=== PATIENT | female | born 1950 | race Caucasian/White ===

== ENCOUNTER 2018-07-17 10:10 | Emergency (ER) | payer BC, MEDICARE ==
--- NOTE | 2018-07-17 10:37 | ED ---
Complex/Multi-Sys Presentation - HPI Summary HPI Summary: This patient is a 67 year old F presenting to ED with a chief complaint of rushes of adrenaline since last night. She has been having episodes like these for years. Sometimes she gets them 4-5 times a night, each lasting about a minute or less and sometimes she doesnt get them at all during the night. She reports increased heart rate when this happens. She says that after the episode passes, there is a residual feeling of adrenaline left over. The patient rates the pain 0/10 in severity. Symptoms aggravated by nothing. Symptoms alleviated by nothing. Patient reports SI, anxiety, and depression (secondary to rushes), palpitations, and dizziness. Patient denies weakness of UE and LE. She was seen before and was given Gabapentin but that gave her a bad reaction. She was also treated for Lyme Disease which helped a lot but has stopped that treatment 2 years ago. She also had a CT Brain done about 5 years ago. She has also been seeing a psychiatrist for over 10 years. - History Of Current Complaint Chief Complaint: EDPsychosocial Time Seen by Provider: 07/17/18 10:21 Hx Obtained From: Patient Onset/Duration: Sudden Onset, Lasting Minutes, Resolved Timing: Constant Severity Currently: None Aggravating Factor(s): nothing Alleviating Factor(s): nothing Associated Signs And Symptoms: Positive: Dizziness, Palpitations. Negative: Weakness - Allergies/Home Medications Allergies/Adverse Reactions: Allergies Allergy/AdvReac Type Severity Reaction Status Date / Time lisinopril Allergy Anxiety Verified 07/17/18 10:50 moxifloxacin Allergy Unknown Verified 07/17/18 10:50 Reaction Details omega-3 acid ethyl esters Allergy Unknown Verified 07/17/18 10:50 [From Judi] Reaction Details PMH/Surg Hx/FS Hx/Imm Hx Endocrine/Hematology History: Reports: Hx Anticoagulant Therapy - ASA Denies: Hx Diabetes Cardiovascular History: Reports: Hx Hypertension Denies: Hx Pacemaker/ICD Respiratory History: Reports: Hx Sleep Apnea GI History: Reports: Hx Gastroesophageal Reflux Disease Sensory History: Denies: Hx Hearing Aid Neurological History: Reports: Other Neuro Impairments/Disorders - Balance Issues Psychiatric History: Reports: Hx Anxiety, Hx Depression Denies: Hx Panic Disorder - Surgical History Surgery Procedure, Year, and Place: LEFT THUMB. RT HIP REPLACEMENT. APPENDIX. 2 C-SECTIONS. HYSTERECTOMY Infectious Disease History: No Infectious Disease History: Denies: Traveled Outside the [place] in Last 30 Days - Family History Known Family History: Positive: Other Family History: breast CA - Social History Alcohol Use: None Substance Use Type: Reports: None Smoking Status (MU): Never Smoked Tobacco Review of Systems Positive: Other - "rushes of adrenaline Positive: Palpitations Neurological: Other - dizziness Negative: Weakness Positive: Anxious, Depressed, Other - SI All Other Systems Reviewed And Are Negative: Yes Physical Exam - Summary Physical Exam Summary: Appearance: Well appearing, no pain distress Skin: warm, dry, reflects adequate perfusion Head/face: normal Eyes: EOMI, NANCY ENT: normal Neck: supple, non-tender Respiratory: CTA, breath sounds present Cardiovascular: RRR, pulses symmetrical Abdomen: non-tender, soft Musculoskeletal: normal, strength/ROM intact Neuro: normal, sensory motor intact, A&Ox3 GCS: 15 Triage Information Reviewed: Yes Vital Signs On Initial Exam: Initial Vitals Temp Pulse Resp BP Pulse Ox 99.2 F 133 22 185/121 98 07/17/18 10:14 07/17/18 10:14 07/17/18 10:14 07/17/18 10:14 07/17/18 10:14 Vital Signs Reviewed: Yes Diagnostics - Vital Signs Vital Signs Temp Pulse Resp BP Pulse Ox 07/17/18 10:14 99.2 F 133 22 185/121 98 - Laboratory Result Diagrams: 07/17/18 10:50 07/17/18 10:50 Lab Statement: Any lab studies that have been ordered have been reviewed, and results considered in the medical decision making process. - Radiology CXR Radiology Interpretation Completed By: Radiologist Summary of Radiographic Findings: NO EVIDENCE FOR ACTIVE CARDIOPULMONARY DISEASE. ED physician has reviewed this radiology report. - CT Brain CT CT Interpretation Completed By: Radiologist Summary of CT Findings: There is no evidence of intracranial mass or hemorrhage. ED physician has reviewed this radiology report. - EKG 1340 Cardiac Rate: Bradycardia - 57 BPM EKG Rhythm: Sinus Bradycardia Summary of EKG Findings: QS in the inferior leads Re-Evaluation - Re-Evaluation First Eval Re-Evaluation Time: 12:33 Comment: The patient is doing fine. Told the patient that the psych information technology coordinator will see her soon. Complex Multi-Symp Course/Dx Assessment/Plan: This patient is a 67 year old F presenting to ED with a chief complaint of rushes of adrenaline since last night. Blood work/UA obtained. Per the nurse, the patient reports these sx started around the time she started menopause. Brain CT reveals there is no evidence of intracranial mass or hemorrhage. CXR reveals NO EVIDENCE FOR ACTIVE CARDIOPULMONARY DISEASE. The patient was cleared for MHE at 1200. EKG was done at 1340 and reveals sinus marysol at 57 BPM and QS in the inferior leads. This patient was evaluated by Dr. Cesar and the patient will be discharged with instructions to follow up with her PCP for her adrenal issues and rx for anxiety. The patient understands and agrees with this plan. - Diagnoses Differential Diagnoses/HQI/PQRI: Other - anxiety/depression Provider Diagnoses: Anxiety Discharge - Sign-Out/Discharge Documenting (check all that apply): Patient Departure - discharge Patient Received Moderate/Deep Sedation with Procedure: No - Discharge Plan Condition: Stable Disposition: HOME Prescriptions: hydrOXYzine pamoate [Vistaril] 25 mg PO TID #15 cap Patient Education Materials: Depression (ED), Anxiety (ED) Referrals: Doug Taylor MD [Primary Care Provider] - (Follow up for adrenal insufficiency testing as soon as possible) Additional Instructions: RETURN TO THE EMERGENCY DEPARTMENT FOR CHANGING OR WORSENING SYMPTOMS. - Billing Disposition and Condition Condition: STABLE Disposition: Home - Attestation Statements Document Initiated by Alex: Yes Documenting Scribe: Sravan Pollard Provider For Whom Alex is Documenting (Include Credential): Abel Zeng MD Scribe Attestation: Sravan Livingston, scribed for Abel Zeng MD on 07/17/18 at 1431. Scribe Documentation Reviewed: Yes Provider Attestation: The documentation as recorded by the Sravan michael accurately reflects the service I personally performed and the decisions made by , Abel Zeng MD Status of Scribe Document: Viewed
[2018-07-17 10:57] LABS: ABS Basophils 0 10^3/ul (0-0.2); ABS Eosinophils 0 10^3/ul (0-0.6); ABS Lymphocytes 1.3 10^3/ul (1.0-4.8); ABS Monocytes 0.4 10^3/ul (0-0.8); ABS Neutrophils 2.6 10^3/ul (1.5-7.7); ABS Nucleated RBC 0 10^3/ul; Hematocrit 40 % (35-47); Hemoglobin 13.7 g/dl (12.0-16.0); Lymphocyte % 29.1 %; Mean Corpuscular HGB Conc 34 g/dl (31-36); Mean Corpuscular Hemoglobin 30 pg (27-31); Mean Corpuscular Volume 87 fL (80-97); Mean Platelet Volume 7.6 fL (7.4-10.4); Nucleated Red Blood Cells % 0.1; Platelet Count 200 10^3/ul (150-450); Red Blood Count 4.65 10^6/ul (4.00-5.40); Red Cell Distribution Width 15 % (10.5-15); White Blood Count 4.4 10^3/ul (3.5-10.8)
[2018-07-17 11:19] LABS: ALT 17 U/L (7-52); AST 20 U/L (13-39); Albumin 4.6 g/dL (3.2-5.2); Albumin/Globulin Ratio 1.5 (1-3); Alkaline Phosphatase 84 U/L (34-104); Anion Gap 9 mmol/L (2-11); BUN/Creatinine Ratio 28.6 (8-20); Blood Urea Nitrogen 22 mg/dL (6-24); CO2 Carbon Dioxide 25 mmol/L (22-32); Calcium 9.6 mg/dL (8.6-10.3); Chloride 106 mmol/L (101-111); Creatine Kinase 46 U/L (10-223); EGFR African American 90.2 (>60); EGFR Non-African American 74.5 (>60); Glucose 111 mg/dL (70-100); Sodium 140 mmol/L (135-145); Total Protein 7.6 g/dL (6.4-8.9)
--- OUTSIDE RECORDS SUMMARY | 2018-07-17 11:25 | XMS REPORT | Continuity of Care Document ---
:1950 External Reference #:[id number] Author Name Keyonna Collins Care Team Providers Name Role Phone Marii Pagan MD Primary Care Physician Unavailable Payers Date Identification Numbers Payment Provider Subscriber Effective: 2016 Policy Number: [id number] BS [employer]ets Scooter Quintanilla PayID: [id number] [address] [address] [place] [address] Policy Number: [id number] Medicare Estevan Miller PayID: [id number] [address] [place] [address] Effective: 2013 Policy Number: [id number] [employer] Scooter Quintanilla Expires: 2016 PayID: [id number] [address] [address] [place] [address] Effective: 2012 Policy Number: [id number] BS Facets Estevan Miller Expires: 2013 PayID: [id number] [facility] [address] [place] [address] Effective: 2013 Policy Number: [id number] Medicare Estevan Miller Expires: 2018 PayID: [id number] [address] [facility] [place] [address] Advance Directives Description No Information Available Problems Date Description Provider Status Onset: 03/19/2018 Familial hypercholesterolemia Eliseo Anthony M.D.,FACP Onset: 06/12/2007 Obstructive sleep apnea syndrome Eliseo Anthony M.D.,FACP Onset: 04/27/2015 Essential hypertension Eliseo Schuler M.D. Onset: 09/29/2013 Hyperlipidemia Sweta GilEliseo Marks M.D. Onset: 11/01/2011 Impaired fasting glycaemia Eliseo Anthony M.D.,FACP Onset: 10/02/2011 Coronary arteriosclerosis Eliseo Anthony M.D.,FACP Onset: 02/19/2012 Chronic pain syndrome Valeriano Valdes M.D. Active Onset: 02/19/2012 Degenerative joint disease of pelvis Valeriano Valdes M.D. Active Onset: 03/27/2011 Localized, primary osteoarthritis of Doug Taylor Active the pelvic region and thigh Ada.Delma,FACP Onset: 07/21/2011 Anxiety state Vikki Chin N.P. Active Onset: 05/19/2011 Electrocardiogram abnormal Eliseo Anthony M.D.,FACP Onset: 02/19/2012 Immunological Findings Nonspecified Valeriano Valdes M.D. Active Other & Unspecified Onset: 06/12/2007 Dizziness and giddiness Eliseo Anthony M.D.,FACP Onset: 05/06/2015 Prosthetic arthroplasty of the hip Tristan Best M.D. Active Onset: 06/13/2016 Tachycardia Kaitlyn Zamora DNP, Active RN, CHILD HEALTH ASSOCIATE- Note: nocturnal per report Onset: 02/07/2017 Low back pain Tristan Best M.D. Active Onset: 02/07/2017 Neck pain Tristan Best M.D. Active Onset: 09/16/2007 Arteritis Doug Taylor M.D.,FACP Inactive Inactive: 09/05/2012 Onset: 03/27/2011 Pure hypercholesterolemia Doug Taylor M.D.,FACP Inactive Inactive: 09/05/2012 Onset: 07/21/2011 Palpitations Vikki Chin N.P. Resolved Resolved: 09/05/2012 Family History Date Family Member(s) Observation Comments General Diabetes General Heart Disease General Cancer Father SD at 55, was a smoker Father due to Emphysema () Mother due to Alzheimer's () Disease Mother Hypercholesterolemia severe Mother Arthritis First Son Hypercholesterolemia Second Son Hypercholesterolemia Third Son Hypercholesterolemia Fourth Son Hypercholesterolemia Siblings 2 Paternal Grandfather Arthritis severe, early : (age Paternal Grandfather due to SD 63 Years) : (age Paternal Grandmother due to SD 64 Years) Maternal Grandmother due to Cancer () - stomach Social History Type Date Description Comments Sex Unknown Marital Status Lives With Spouse 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 [employer] Tobacco Use Start: Unknown Never Smoked Cigarettes ETOH Use 03/22/2018 Denies alcohol use Recreational Drug Use Denies Drug Use Tobacco Use Start: Unknown Patient has never smoked Smoking Status Reviewed: 06/28/18 Patient has never smoked Exercise Type/Frequency Exercises rarely Allergies, Adverse Reactions, Alerts Date Description Reaction Status Severity Comments 09/15/2008 Lovaza Urticaria Active 2010 Avelox Urticaria Active Severe 10/02/2011 Lisinopril Active anxiety 04/27/2015 Latex Active itchiness 06/06/2016 Rocephin itchy, tingling Active Mild overall 06/25/2018 Sulfa Antibiotics Active chills, fever, diarrhea 06/12/2007 NKDA Inactive Medications Medication Date Status Form Strength Qnty SIG Indications Ordering Provider Macrobid Active Capsules 100mg 14caps 1 by Lizet 019 mouth Varn, N.P. twice a day for 7 days Rosuvastatin Active Tablets 40mg 30tabs take one E78.4 Ulises Verma tablet Delma Taylor, by mouth BetoDLilo,FACP every day Praluent Active Solution 75mg/ml 2units sc E78.2 Doug Pichardo Pen-Inject [id number] DLilo Taylor, (not M.D.,FACP taking) I25.10 Losartan 03/19/2018 Active Tablets 50mg 90tabs 1 by mouth I10 Ulises Nguyễn Potassium every day [place], Started on M.D.,FACP 03/20/18 Tylenol 12/31/2017 Active Tablets 325mg 90tabs take 2 tabs Doug Nguyễn as needed Claudia, every 6 M.D.,FACP hours for pain/fever Amoxicillin 09/26/2016 Active Capsules 500mg 8caps 4 tabs 1 Tristan hour before Nasir, dental work M.DLilo Aspirin 09/05/[address] 81mg 30tabs 1 by mouth I25.10 Florian Nguyễn every day Monika Taylor,FACP E78.4 Kril Oil Active 240mg po daily Unknown Vitamin D Active Liquid 4000Iu qd po Unknown Multi Vitamin Daily Active 1 tablet Unknown daily Magnesium Active 165mg 4tabs daily Unknown Curcumax Pro Active Tablets 1 po qd Unknown (tumeric) Resveratrol Active Capsules 100mg 2 daily Unknown Acetyl L-Carnitine Active Capsules 1000mg 1 po daily Unknown Co Q 10 Active Capsules 100mg 2 po qd Unknown Macrodantin 06/25/2018 - Hx Capsules 100mg 14 one by Lizet 06/25/2018 ca mouth twice Varn, N.P. ps a day x 7 days Bactrim DS 06/24/2018 - Hx Tablets 800-160 14 one by Kevin Hinds 06/25/2018 mg ta mouth twice 9. Varn, N.P. bs a day for 7 0 days Cyclobenzaprine HCL 04/04/2017 - Hx Tablets 5mg 10 one to two M5 [place] 03/21/2018 ta tabs by 4az Santos mouth twice 5 M.D. a day as needed for spasms Neurontin 02/12/2017 - Hx Capsules 300mg 30 1 by mouth [place] 03/21/2018 ca every night judit Best at bedtime M.D. (pt has not taken, prn) VSL#3 05/05/2015 - Hx Capsules 450Bill 2 caps bid Other 07/18/2017 iion Ordering Per Day Provider Coq-10 05/03/2014 - Hx Capsules 100mg 1 tabs Other 01/04/2016 twice a day Ordering Provider Losartan Potassium 03/03/2014 - Hx Tablets 25mg 90 Take One I1 [place] 03/19/2018 ta Tablet By 0 az Lyon Mouth Once M.D. Daily Doxycycline Hyclate 02/19/2014 - Hx Capsules 100mg 60 twice a day 08 Doug 03/17/2014 ca by mouth 8. DLilo Taylor ps 81 M.D.,FACP Lidoderm 07/03/2013 - Hx Patches 5% 30 apply 72 Doug 01/29/2014 un topically 4. DLilo Taylor it qd for 12 1 M.D.,FACP s hrs Gabapentin 02/15/2012 - Hx Capsules 100mg 60 1 po tid 78 [facility] 09/05/2012 ca 0. D. Claudia, ps 4 M.D.,FACP Omeprazole 11/01/2011 - Hx Capsules DR 20mg 60 1 cap bid 53 Doug 09/29/2013 ca (before 0. D. Claudia, ps breakfast 11 M.D.,FACP and dinner) prn Welchol 11/01/2011 - Hx Tablets 625mg 18 3 po bid 41 [facility] 09/05/2012 0t 4. D. Claudia, ab 01 M.D.,FACP s Klonopin Wafers 11/01/2011 - Hx Tablets 0.25mg 12 1 po qid 78 [facility] 09/05/2012 Dispers 0t 0. D. Claudia, ab 4 M.D.,FACP s Hydrochlorothiazide 10/30/2011 - Hx Tablets 12.5mg 90 1 po every [facility] 11/01/2011 ta am Delma Taylor bs [facility] Losartan 10/02/2011 - Hx Tablets 50-12.5 45 take 05/22 41 [facility] Potassium/Hydrochlorot 09/29/2013 mg ta tablet 4. John. rony Taylorazide bs every 01 M.D.,[facility] morning Lisinopril 08/25/2011 - Hx Tablets 10mg 30 1 tab po qd 40 Doug 09/26/2011 ta at night 1. John. Claudia bs 1 M.D.,FAC Amoxicillin 08/15/2011 - Hx Capsules 500mg 8c 4 tabs 1 Tristan 05/05/2015 ap hour before gil Best dental work M.D. Transderm-Scop 07/25/2011 - Hx Patches 72HR 1.5mg 4u apply 1 78 [facility] 11/01/2011 ni patch q3 0. D. Claudia, ts days prn; 4 M.D.,FACP apply patch behind ear at least 4h before event; do not cut Omeprazole 07/21/2011 - Hx Capsules DR 20mg 60 1 cap bid 53 [facility] 11/01/2011 ca (before 0. D. Claudia, ps breakfast 11 M.D.,FACP and dinner) Align 07/21/2011 - Hx Capsules 4mg 30 1 po qd 78 [facility] 11/01/2011 ca Jaleel. D. Claudia ps 3 M.D.,FACP Bactrim DS 06/19/2011 - Hx Tablets 800-160 14 1 po bid [place] 07/21/2011 mg ta for 7 days az Best M.D. Percocet 05/19/2011 - Hx Tablets 5-325mg 60 1-2 po [place] 07/21/2011 ta q4-6h prn az Best pain BetoDLilo Coumadin 05/19/2011 - Hx Tablets 2.5mg 50 2 po use as [place] 07/21/2011 ta directed az Best M.D. Ultram 04/19/2011 - Hx Tablets 50mg 40 1-2 po bid [place] 04/21/2011 ta praz Stanton M.D. Garamycin 04/14/2011 - Hx Ointment 0.3% 1u 1/4 inch to 37 [place] 05/19/2011 ni each eye 4x 2. Darrel, ts per day 11 M.D. 7-10 days Arthrotec 50 03/27/2011 - Hx Tablets 50-200m 60 po bid 71 Doug 04/21/2011 g-mcg ta az Trent 15 M.DLilo,FACP Genteal PM 03/06/2011 - Hx Ointment 85-15% 37 [place] 03/27/2011 3. Mario 00 M.DLilo Garamycin 03/06/2011 - Hx Ointment 0.3% 1u 1/4 inch to 37 [place] 03/27/2011 ni each eye 4x 2. Mario, ts per day 11 M.D. 7-10 days Celebrex 02/03/2011 - Hx Capsules 200mg 60 1 po bid Valeriano 05/19/2011 ca Monika Valdes ps Prednisone 02/03/2011 - Hx Tablets 5mg 70 4 qd x 1 Valeriano 03/06/2011 ta week, 3 qd Monika Valdes bs x 1 week, 2 qd x 1 week, 1 qd x 1 week Zantac 01/17/2011 - Hx Tablets 150mg 90 po qd prn 53 Doug 03/27/2011 az Myers 00 M.DLilo,FACP Amoxicillin 12/16/2010 - Hx Tablets 500mg 40 2 tabs po 46 Doug 01/05/2011 ta bid for 10 6. D. Claudia bs days 0 M.D.,[facility] Verapamil HCL ER 11/09/2010 - Hx Tablets ER 240mg 90 Take 1 41 Ulises Triana 10/02/2011 ta Tablet By 4. D. Claudia bs Mouth Every 01 M.D.,[facility] Day Lorazepam 11/09/2010 - Hx Tablets 0.5mg 45 1 po tid 78 Doug 03/06/2011 ta prn 0. DLilo Taylor bs 4 M.D.,[facility] Sertraline HCL 11/09/2010 - Hx Tablets 25mg 30 1 po qam 30 Doug 12/16/2010 ta 0az Sal 00 M.D.,[facility] Nabumetone 10/13/2010 - Hx Tablets 750mg 60 1 po bid Valeriano 02/03/2011 bree Valdes M.D. bs Indomethacin 2010 - Hx Capsules 25mg 90 1 po tid [place] 10/13/2010 ca Monika Valdes ps Avelox 06/20/2010 - Hx Tablets 400mg 10 1 po qd 46 [place] 2010 ta 1. az Lyon 9 M.D. Celebrex 04/21/2010 - Hx Capsules 200mg 30 1 po qd 72 Doug 2010 ca Kristi Taylor ps 0 M.D.,[facility] Fish Oil 10/20/2009 - Hx Capsules 1000mg 1 po bid 27 Doug 04/21/2010 2. DLilo Taylor, 2 M.D.,[facility] Verapamil HCL CR 10/20/2009 - Hx Tablets ER 240mg 90 1 po qd 40 Ulises Triana 11/09/2010 ta 1. DLilo Taylor bs 1 M.D.,[facility] Crestor 10/20/2009 - Hx Tablets 40mg 90 take one E7 Doug 06/21/2018 ta tablet by 8. DLilo Taylor bs mouth every 4 M.D.,[facility] day Lipator 07/01/2009 - Hx 40mg 30 1 po q 27 Doug 10/20/2009 un evening 2. D. Claudia, it 2 M.D.,[facility] s Amoxicillin 02/16/2009 - Hx Tablets 500mg 40 2 tabs po 47 Doug 03/31/2009 ta bid for 10 3. az Finley days 9 M.D.,FACP Vitamin D 11/17/2008 - Hx Tablets 1000Uni 30 qd po Doug 01/29/2014 t az Justice M.D.,[facility] Niaspan 09/15/2008 - Hx Tablets ER 500mg 90 1 po qhs 27 Doug 07/01/2009 ta az Reza 7 M.D.,[facility] Lipitor 09/15/2008 - Hx Tablets 20mg 90 qpm po 27 Doug 02/16/2009 ta az Reza 7 M.D.,[facility] Provigil 12/25/2007 - Hx Tablets 100mg 7t 1 po qam 32 Doug 02/24/2008 ab 7. Delma Taylor, s 23 M.D.,FACP Verapamil HCL ER 09/16/2007 - Hx Caps ER 24HR 180mg 90 1 po qd 40 Ulises Triana 10/20/2009 ca Dmitriy Taylor, ps 1 M.[facility] Amitriptyline HCL 07/15/2007 - Hx Tablets 10mg 30 1 po qhs 78 Doug 09/16/2007 ta 0. az Finley 4 M.D.,[facility] Celexa 06/12/2007 - Hx Tablets 10mg 1/2 tab PO Doug 06/21/2007 qd Delma Taylor M.D.,[facility] Klonopin Wafers 06/12/2007 - Hx Tablets 0.25mg 12 1 qid 78 Doug 04/21/2010 Dispers 0t 0. Delma Taylor, 4 M.[facility] s Atacand - Hx Tablets 32mg 1 PO qd 40 Doug 09/16/2007 Dmitriy Taylor, 1 M.D.,FACP Celexa - Hx Tablets 10mg 45 One And Doug 06/12/2007 ta Half Tab PO John. Claudia bs qd M.D.,[facility] Prilosec - Hx Doug 07/01/2009 Delma Taylor M.D.,FACP Vitamin B12 - Hx 1 qd Unknown 05/03/2014 Coq-10 - Hx Capsules 100mg 1 po qd Unknown 05/04/2014 Nabumetone - Hx Tablets 750mg 1 po bid 72 Unknown 04/21/2010 0. 0 Iron - Hx Tablets 325(65F 1 po qd Unknown 10/02/2011 e) mg Maalox Multi Symptom - Hx Suspension 400-400 3 teaspoons Unknown Maximum Strength 11/01/2011 -40mg/5 daily prn ML Diazepam - Hx Tablets 5mg 20 1/2-1 tab [facility] 05/05/2015 ta po prn az Finley M.D.,FACP Amino Acid - Hx Daily Unknown 05/05/2015 Celebrex - Hx Capsules 200mg 60 take one [facility] 05/05/2015 ca capsule by Delma Taylor ps mouth twice M.DLilo,FACP a day as needed D-Ribose - Hx Powder qd prn Unknown 05/05/2015 L-Tryptophan - Hx Capsules 500mg Unknown 05/03/2014 Cortisol [employer] - Hx Tablets Unknown 01/29/2014 [place] 3 - Hx Capsules 1000mg 10 1 by mouth Unknown 05/03/2014 0c qd. ap s Alpha Lipoic Acid - Hx Capsules 200mg Unknown 01/29/2014 Celexa - Hx Unknown 01/29/2014 Prozac - Hx Capsules 2.5mg 1 by mouth Unknown 07/06/2014 every day Hydrocortisone - Hx 5.5 mg at 8 Unknown 01/04/2016 am and 2.5 mg at noon [place] 3 - Hx Capsules 1000mg 1 by mouth Unknown 05/05/2015 qd. Vitamin B Complex - Hx Tablets 1 by mouth Unknown 04/26/2015 every day L Carnitine - Hx 1 daily Unknown 05/05/2015 Liposomal Glutathione - Hx 1 daily Unknown 05/05/2015 Meritene - Hx Unknown 05/05/2015 Cefuroxime Axetil - Hx 500mg 1 tab twice Unknown 01/04/2016 a day Azithromycin - Hx 250mg 1 tablet Unknown 06/06/2016 daily Saccharomyces - Hx 1-2 tabs Unknown 07/18/2017 per day Vitamin C - Hx 1000 1 tab twice Unknown 03/21/2018 a day (pt is not taking at this time) Fish Oil - Hx Capsules 500mg 1 by mouth E7 Unknown 03/21/2018 every day 8. 4 Atovaquone - Hx Suspension 750mg/5 1 tsp twice Unknown 06/06/2016 ML daily Medications Administered in Office Medication Date Status Form Strength Qnty SIG Indications Ordering Provider Celestone 3 mg Administered Injection Jennifer and 3mg 014 PAULINE Oshea Immunizations CPT Code Status Date Vaccine Lot # [id number] Given 12/05/2012 Tdap - Tetanus/Diptheria/Acellular Pertussis [id number] Given 02/15/2012 Fluzone Vaccine [id number] Given 03/27/2011 Zoster (Zostavax) [id number] 11625 Given 03/27/2011 Influenza Virus 3Yrs & Over [id number] 81660 Given 04/21/2010 Influenza Virus 3Yrs & Over [id number] 67733 Given 04/28/2008 Influenza Virus 3Yrs & Over [id number] Given 04/28/2008 Influenza Virus 3Yrs & Over [id number] Vital Signs Date Vital Result Comment 06/28/2018 1:10pm Height 62 inches 5'2" Weight 191.00 lb Heart Rate 103 /min BP Systolic Sitting 159 mmHg BP Diastolic Sitting 102 mmHg Respiratory Rate 14 /min BMI (Body Mass Index) 34.9 kg/m2 06/24/2018 2:13pm Height 62 inches 5'2" Weight 195.00 lb Heart Rate 80 /min BP Systolic 163 mmHg BP Diastolic 96 mmHg Body Temperature 97.3 F O2 % BldC Oximetry 97 % BMI (Body Mass Index) 35.7 kg/m2 03/22/2018 11:18am Height 62 inches 5'2" Weight 197.00 lb W/ Shoes Heart Rate 70 /min BP Systolic Sitting 150 mmHg Lue Large Cuff BP Diastolic Sitting 90 mmHg Lue Large Cuff BMI (Body Mass Index) 36.0 kg/m2 Ejection Fraction 55-60% ECHO 11/03/16 03/19/2018 4:26pm Height 62 inches 5'2" Weight 190.00 lb Heart Rate 101 /min BP Systolic 176 mmHg pt states she is very nervous at the drs. BP Diastolic 103 mmHg pt states she is very nervous at the drs. BP Systolic Recheck 184 mmHg BP Diastolic Recheck 95 mmHg Body Temperature 97.8 F O2 % BldC Oximetry 96 % BMI (Body Mass Index) 34.7 kg/m2 07/19/2017 1:17pm Height 62 inches 5'2" Weight 205.00 lb w/shoes Heart Rate 98 /min BP Systolic Sitting 168 mmHg LA lg cuff BP Diastolic Sitting 110 mmHg LA lg cuff BMI (Body Mass Index) 37.5 kg/m2 Ejection Fraction 55-60% Echo 11/03/16 04/04/2017 11:02am Height 62 inches 5'2" Weight 190.00 lb Per Patient Heart Rate 80 /min Respiratory Rate 12 /min Body Temperature 97.5 F Pain Level 2 BMI (Body Mass Index) 34.7 kg/m2 02/07/2017 2:49pm Height 62 inches 5'2" Weight 206.00 lb BP Systolic 126 mmHg BP Diastolic 84 mmHg Respiratory Rate 20 /min Body Temperature 97.4 F Pain Level 5 BMI (Body Mass Index) 37.7 kg/m2 10/26/2016 10:20am Height 62 inches 5'2" Weight 206.00 lb with shoes Heart Rate 58 /min BP Systolic Sitting 148 mmHg Ra lrg cuff BP Diastolic Sitting 90 mmHg Ra lrg cuff BMI (Body Mass Index) 37.7 kg/m2 Ejection Fraction 50% - 55% echo 06/21/15 06/16/2016 1:19pm BP Systolic Sitting 168 mmHg BP Diastolic Sitting 100 mmHg 06/16/2016 1:01pm BP Systolic Sitting 168 mmHg BP Diastolic Sitting 100 mmHg 06/13/2016 1:52pm Height 61.5 inches 5'1.50" Weight 200.00 lb Heart Rate 76 /min BP Systolic 146 mmHg BP Diastolic 92 mmHg Respiratory Rate 14 /min O2 % BldC Oximetry 95 % BMI (Body Mass Index) 37.2 kg/m2 06/07/2016 2:48pm Height 61.5 inches 5'1.50" Weight 200.00 lb Pain Level 0 BMI (Body Mass Index) 37.2 kg/m2 06/06/2016 1:42pm Height 61.5 inches 5'1.50" Weight 200.00 lb Heart Rate 124 /min BP Systolic Sitting 148 mmHg BP Diastolic Sitting 110 mmHg Body Temperature 98.3 F O2 % BldC Oximetry 97 % BMI (Body Mass Index) 37.2 kg/m2 01/05/2016 3:50pm Height 62 inches 5'2" Weight 198.25 lb with shoes BMI (Body Mass Index) 36.3 kg/m2 05/06/2015 11:40am Height 62 inches 5'2" Weight 187.00 lb Pain Level 2 BMI (Body Mass Index) 34.2 kg/m2 05/05/2015 10:54am Height 62 inches 5'2" Weight 187.12 lb Heart Rate 66 /min BP Systolic Sitting 162 mmHg BP Diastolic Sitting 90 mmHg Body Temperature 98.7 F O2 % BldC Oximetry 96 % BMI (Body Mass Index) 34.2 kg/m2 04/27/2015 3:30pm Height 62 inches 5'2" Weight 187.25 lb w/shoes Heart Rate 68 /min BP Systolic Sitting 142 mmHg LA lg cuff BP Diastolic Sitting 98 mmHg LA lg cuff BMI (Body Mass Index) 34.2 kg/m2 Ejection Fraction 60 echo 08/25/11 08/03/2014 10:57am Height 62 inches 5'2" Weight 167.00 lb Heart Rate 56 /min BP Systolic Sitting 134 mmHg left arm, large cuff BP Diastolic Sitting 84 mmHg left arm, large cuff BP Systolic Standing 130 mmHg left arm, large cuff BP Diastolic Standing 82 mmHg left arm, large cuff Respiratory Rate 16 /min BMI (Body Mass Index) 30.5 kg/m2 07/07/2014 11:33am Height 62 inches 5'2" Weight 163.50 lb with shoes Heart Rate 72 /min BP Systolic Sitting 150 mmHg La reg cuff BP Diastolic Sitting 90 mmHg La reg cuff Respiratory Rate 17 /min BMI (Body Mass Index) 29.9 kg/m2 07/02/2014 2:13pm Height 62 inches 5'2" Heart Rate 70 /min BP Systolic 154 mmHg LA reg BP Diastolic 92 mmHg LA reg 05/04/2014 4:31pm Height 62 inches 5'2" Weight 162.00 lb Heart Rate 62 /min BP Systolic 170 mmHg LA reg BP Diastolic 90 mmHg LA reg BMI (Body Mass Index) 29.6 kg/m2 03/17/2014 11:06am Height 62 inches 5'2" Weight 168.00 lb Heart Rate 104 /min BP Systolic Sitting 150 mmHg BP Diastolic Sitting 90 mmHg BP Systolic Standing 158 mmHg pt bp machine BP Diastolic Standing 107 mmHg pt bp machine Body Temperature 98.1 F BMI (Body Mass Index) 30.7 kg/m2 03/06/2014 1:16pm Height 62 inches 5'2" Weight 169.00 lb Heart Rate 64 /min BP Systolic Sitting 132 mmHg LA BP Diastolic Sitting 88 mmHg LA Body Temperature 98.6 F O2 % BldC Oximetry 98 % BMI (Body Mass Index) 30.9 kg/m2 03/03/2014 11:03am Weight 169.00 lb Heart Rate 64 /min BP Systolic Sitting 116 mmHg BP Diastolic Sitting 78 mmHg Body Temperature 99.0 F 02/19/2014 11:28am Weight 175.00 lb Heart Rate 108 /min BP Systolic Sitting 160 mmHg BP Diastolic Sitting 84 mmHg Body Temperature 98.7 F 01/30/2014 11:06am Height 62 inches 5'2" Weight 174.75 lb BP Systolic 134 mmHg P-72 (Left) Lying BP Diastolic 84 mmHg P-72 (Left) Lying BP Systolic Sitting 148 mmHg P-60 (Left) Sitting BP Diastolic Sitting 90 mmHg P-60 (Left) Sitting BP Systolic Standing 138 mmHg P-72 (Left) Standing BP Diastolic Standing 84 mmHg P-72 (Left) Standing BMI (Body Mass Index) 32.0 kg/m2 11/05/2013 2:22pm Height 62 inches 5'2" Heart Rate 61 /min BP Systolic 150 mmHg BP Diastolic 93 mmHg 09/29/2013 1:21pm Height 62 inches 5'2" Weight 184.00 lb Heart Rate 60 /min BP Systolic Sitting 136 mmHg BP Diastolic Sitting 82 mmHg BMI (Body Mass Index) 33.7 kg/m2 07/03/2013 10:09am Height 62 inches 5'2" Weight 190.00 lb Heart Rate 96 /min BP Systolic Sitting 126 mmHg BP Diastolic Sitting 84 mmHg BMI (Body Mass Index) 34.7 kg/m2 03/28/2013 10:27am Height 62.5 inches 5'2.50" Weight 192.00 lb Heart Rate 68 /min BP Systolic Sitting 116 mmHg BP Diastolic Sitting 78 mmHg BMI (Body Mass Index) 34.6 kg/m2 02/05/2013 10:49am Height 62.5 inches 5'2.50" Weight 193.00 lb Heart Rate 54 /min BP Systolic 150 mmHg BP Diastolic 84 mmHg BMI (Body Mass Index) 34.7 kg/m2 12/30/2012 12:10pm Weight 193.25 lb Heart Rate 106 /min BP Systolic Sitting 142 mmHg BP Diastolic Sitting 84 mmHg Body Temperature 98.6 F O2 % BldC Oximetry 96 % 11/08/2012 3:05pm Weight 191.00 lb Heart Rate 80 /min BP Systolic Sitting 140 mmHg BP Diastolic Sitting 84 mmHg 09/06/2012 10:06am Height 62.5 inches 5'2.50" Weight 189.00 lb Heart Rate 80 /min BP Systolic Sitting 140 mmHg BP Diastolic Sitting 78 mmHg BMI (Body Mass Index) 34.0 kg/m2 09/05/2012 10:39am Height 62.5 inches 5'2.50" Weight 189.00 lb Heart Rate 95 /min BP Systolic Sitting 136 mmHg BP Diastolic Sitting 88 mmHg BMI (Body Mass Index) 34.0 kg/m2 06/19/2012 10:44am Height 62.5 inches 5'2.50" Weight 200.00 lb Heart Rate 64 /min claudia on machine 64 BP Systolic 132 mmHg claudia on machine 147/95 left arm BP Diastolic 88 mmHg claudia on machine 147/95 left arm BP Systolic Sitting 135 mmHg claudia on machine 140/91 right arm BP Diastolic Sitting 88 mmHg claudia on machine 140/91 right arm BMI (Body Mass Index) 36.0 kg/m2 05/06/2012 11:03am Height 62.5 inches 5'2.50" Weight 205.25 lb Heart Rate 56 /min BP Systolic Sitting 158 mmHg BP Diastolic Sitting 88 mmHg BMI (Body Mass Index) 36.9 kg/m2 02/19/2012 10:37am Height 62.5 inches 5'2.50" Weight 200.00 lb Heart Rate 78 /min BP Systolic Sitting 130 mmHg BP Diastolic Sitting 71 mmHg BMI (Body Mass Index) 36.0 kg/m2 02/15/2012 10:14am Height 62.5 inches 5'2.50" Weight 200.00 lb Heart Rate 74 /min BP Systolic Sitting 136 mmHg BP Diastolic Sitting 88 mmHg BMI (Body Mass Index) 36.0 kg/m2 11/01/2011 10:07am Height 62.5 inches 5'2.50" Weight 191.00 lb Heart Rate 68 /min BP Systolic Sitting 128 mmHg lg cuff BP Diastolic Sitting 70 mmHg lg cuff BMI (Body Mass Index) 34.4 kg/m2 10/20/2011 10:49am Height 62.5 inches 5'2.50" Weight 195.00 lb Heart Rate 77 /min BP Systolic Sitting 120 mmHg BP Diastolic Sitting 78 mmHg BMI (Body Mass Index) 35.1 kg/m2 10/02/2011 2:03pm Height 62.5 inches 5'2.50" Weight 195.00 lb Heart Rate 72 /min BP Systolic Sitting 154 mmHg BP Diastolic Sitting 90 mmHg BMI (Body Mass Index) 35.1 kg/m2 10/02/2011 10:57am Height 62.5 inches 5'2.50" Weight 195.00 lb Heart Rate 88 /min BP Systolic Sitting 147 mmHg BP Diastolic Sitting 87 mmHg BMI (Body Mass Index) 35.1 kg/m2 09/15/2011 3:11pm Height 62.5 inches 5'2.50" Weight 197.00 lb Heart Rate 60 /min BP Systolic Sitting 140 mmHg L BP Diastolic Sitting 94 mmHg L BMI (Body Mass Index) 35.5 kg/m2 08/25/2011 11:00am Height 62.5 inches 5'2.50" Weight 201.00 lb Heart Rate 62 /min BP Systolic Sitting 142 mmHg BP Diastolic Sitting 88 mmHg BMI (Body Mass Index) 36.2 kg/m2 08/02/2011 1:59pm Height 62.5 inches 5'2.50" Weight 205.00 lb Heart Rate 56 /min BP Systolic Sitting 186 mmHg right arm left arm 166/94 BP Diastolic Sitting 102 mmHg right arm left arm 166/94 BP Systolic Standing 172 mmHg BP Diastolic Standing 102 mmHg BMI (Body Mass Index) 36.9 kg/m2 07/25/2011 2:44pm Height 62.5 inches 5'2.50" Weight 202.00 lb Heart Rate 78 /min BP Systolic Sitting 150 mmHg BP Diastolic Sitting 90 mmHg BMI (Body Mass Index) 36.4 kg/m2 07/21/2011 10:29am Height 62.5 inches 5'2.50" Weight 199.00 lb Heart Rate 80 /min BP Systolic Sitting 142 mmHg BP Diastolic Sitting 100 mmHg BMI (Body Mass Index) 35.8 kg/m2 05/19/2011 1:15pm Height 62.5 inches 5'2.50" Weight 209.00 lb Heart Rate 68 /min BP Systolic Sitting 130 mmHg BP Diastolic Sitting 98 mmHg BMI (Body Mass Index) 37.6 kg/m2 04/21/2011 1:51pm Height 62 inches 5'2" Weight 206.00 lb Heart Rate 70 /min BP Systolic Sitting 118 mmHg BP Diastolic Sitting 84 mmHg BMI (Body Mass Index) 37.7 kg/m2 04/05/2011 2:08pm Height 62 inches 5'2" Weight 202.00 lb Heart Rate 71 /min BP Systolic 174 mmHg BP Diastolic 106 mmHg BMI (Body Mass Index) 36.9 kg/m2 03/27/2011 9:30am Height 62 inches 5'2" Weight 202.00 lb Heart Rate 68 /min BP Systolic Sitting 142 mmHg BP Diastolic Sitting 90 mmHg BMI (Body Mass Index) 36.9 kg/m2 03/13/2011 2:22pm Height 63.25 inches 5'3.25" Weight 208.00 lb Heart Rate 68 /min BP Systolic Sitting 160 mmHg BP Diastolic Sitting 95 mmHg BMI (Body Mass Index) 36.6 kg/m2 03/06/2011 2:30pm Weight 207.00 lb Heart Rate 78 /min BP Systolic Sitting 164 mmHg BP Diastolic Sitting 100 mmHg Body Temperature 98.1 F lt ear 02/03/2011 1:53pm Height 62 inches 5'2" Weight 203.00 lb BP Systolic 120 mmHg BP Diastolic 80 mmHg BMI (Body Mass Index) 37.1 kg/m2 01/17/2011 8:46am Height 62 inches 5'2" Weight 201.00 lb Heart Rate 60 /min BP Systolic Sitting 140 mmHg L BP Diastolic Sitting 82 mmHg L BMI (Body Mass Index) 36.8 kg/m2 12/16/2010 10:36am Weight 199.00 lb Heart Rate 74 /min BP Systolic Sitting 152 mmHg BP Diastolic Sitting 98 mmHg Body Temperature 98.9 F Tympanically 11/09/2010 11:53am Weight 195.00 lb Heart Rate 78 /min BP Systolic Sitting 164 mmHg BP Diastolic Sitting 92 mmHg Body Temperature 98.9 F lt ear 10/13/2010 10:03am Height 62.5 inches 5'2.50" Weight 201.00 lb Heart Rate 76 /min BP Systolic 140 mmHg BP Diastolic 88 mmHg BMI (Body Mass Index) 36.2 kg/m2 2010 2:58pm Height 62.5 inches 5'2.50" Weight 200.00 lb Heart Rate 80 /min BP Systolic 148 mmHg BP Diastolic 80 mmHg BMI (Body Mass Index) 36.0 kg/m2 06/20/2010 9:59am Weight 196.00 lb Heart Rate 101 /min BP Systolic Sitting 164 mmHg BP Diastolic Sitting 98 mmHg Body Temperature 98.6 F O2 % BldC Oximetry 95 % 04/21/2010 11:27am Weight 193.00 lb Heart Rate 70 /min BP Systolic 132 mmHg BP Diastolic 90 mmHg 10/20/2009 9:46am Weight 200.00 lb Heart Rate 84 /min BP Systolic Sitting 154 mmHg BP Diastolic Sitting 94 mmHg 07/01/2009 9:41am Weight 196.50 lb Heart Rate 60 /min BP Systolic Sitting 158 mmHg BP Diastolic Sitting 82 mmHg Body Temperature 97.5 F 04/30/2009 10:07am Weight 192.50 lb Heart Rate 74 /min BP Systolic Sitting 166 mmHg BP Diastolic Sitting 86 mmHg 03/31/2009 10:53am Weight 191.00 lb Heart Rate 60 /min x BP Systolic Sitting 140 mmHg BP Diastolic Sitting 86 mmHg 02/16/2009 3:53pm Weight 186.00 lb Heart Rate 90 /min BP Systolic Sitting 159 mmHg BP Diastolic Sitting 95 mmHg Body Temperature 97.9 F 01/22/2009 9:07am Weight 185.75 lb Heart Rate 78 /min BP Systolic Sitting 120 mmHg BP Diastolic Sitting 70 mmHg 12/25/2008 9:10am Height 62 inches 5'2" Weight 185.00 lb Heart Rate 76 /min BP Systolic Sitting 136 mmHg BP Diastolic Sitting 76 mmHg BMI (Body Mass Index) 33.8 kg/m2 11/24/2008 8:46am Height 62 inches 5'2" Weight 184.00 lb Heart Rate 60 /min BP Systolic Sitting 130 mmHg BP Diastolic Sitting 76 mmHg BMI (Body Mass Index) 33.7 kg/m2 11/19/2008 11:51am Height 62 inches 5'2" Weight 184.00 lb Heart Rate 76 /min BP Systolic Sitting 146 mmHg BP Diastolic Sitting 90 mmHg BMI (Body Mass Index) 33.7 kg/m2 11/17/2008 2:36pm Height 62 inches 5'2" Weight 184.00 lb Heart Rate 70 /min BP Systolic Sitting 140 mmHg BP Diastolic Sitting 90 mmHg BMI (Body Mass Index) 33.7 kg/m2 09/15/2008 9:36am Height 62 inches 5'2" Weight 194.00 lb Heart Rate 72 /min BP Systolic Sitting 140 mmHg BP Diastolic Sitting 84 mmHg BMI (Body Mass Index) 35.5 kg/m2 07/28/2008 9:19am Height 62 inches 5'2" Weight 196.00 lb Heart Rate 62 /min BP Systolic Sitting 138 mmHg BP Diastolic Sitting 84 mmHg BMI (Body Mass Index) 35.8 kg/m2 06/03/2008 9:12am Height 62 inches 5'2" Weight 198.00 lb Heart Rate 74 /min BP Systolic Sitting 154 mmHg BP Diastolic Sitting 90 mmHg BMI (Body Mass Index) 36.2 kg/m2 04/28/2008 11:12am Height 62 inches 5'2" Weight 198.00 lb Heart Rate 76 /min BP Systolic Sitting 158 mmHg BP Diastolic Sitting 90 mmHg BMI (Body Mass Index) 36.2 kg/m2 02/24/2008 12:02pm Height 62 inches 5'2" Weight 191.00 lb Heart Rate 60 /min BP Systolic Sitting 146 mmHg BP Diastolic Sitting 82 mmHg BMI (Body Mass Index) 34.9 kg/m2 12/25/2007 9:13am Height 62 inches 5'2" Weight 194.00 lb Heart Rate 60 /min BP Systolic Sitting 130 mmHg BP Diastolic Sitting 72 mmHg BMI (Body Mass Index) 35.5 kg/m2 10/25/2007 9:24am Height 62 inches 5'2" Weight 195.00 lb Heart Rate 76 /min BP Systolic Sitting 150 mmHg BP Diastolic Sitting 88 mmHg BMI (Body Mass Index) 35.7 kg/m2 09/16/2007 4:24pm Height 62 inches 5'2" Weight 197.00 lb Heart Rate 50 /min BP Systolic Sitting 138 mmHg BP Diastolic Sitting 84 mmHg BMI (Body Mass Index) 36.0 kg/m2 07/15/2007 10:19am Height 62 inches 5'2" Weight 201.00 lb Heart Rate 76 /min BP Systolic Sitting 142 mmHg BP Diastolic Sitting 90 mmHg BMI (Body Mass Index) 36.8 kg/m2 06/12/2007 9:24am Height 62 inches 5'2" Weight 200.00 lb Heart Rate 68 /min BP Systolic Sitting 172 mmHg BP Diastolic Sitting 100 mmHg BMI (Body Mass Index) 36.6 kg/m2 Results Test Date Facility Test Result H/L Range Note Basic Metabolic 06/24/2018 [facility] Sodium 141 mmol/L N 135- 145 Panel [address] [place] [address] [phone] Potassium 4.3 mmol/L N 3.5-5.0 Chloride 108 mmol/L N 101-111 Co2 Carbon Dioxide 25 mmol/L N 22-32 Anion Gap 8 mmol/L N 2-11 Glucose 110 mg/dL High 70-100 Blood Urea Nitrogen 17 mg/dL N 6-24 Creatinine 0.80 mg/dL N 0.51-0.95 BUN/Creatinine Ratio 21.3 High 8-20 Calcium 9.3 mg/dL N 8.6-10.3 Egfr Non- 71.3 >60 Egfr 86.3 >60 1 Urine Culture And 06/24/2018 [facility] Urine Culture SEE RESULT 2 Sensitivities [address] [place] [address] [phone] Ua Routine 06/24/2018 [facility] Ua Specific [address] [place] Ua PH 8 Ua Color yellow Ua Appera clear Ua WBC trace Ua Protein negative Ua Glucose negative Ua Ketones negative Ua Bilirubin negative Ua Urobilinogen negative Ua Nitrite negative Ua Occult Blood trace Lipid Profile 06/24/2018 [facility] Triglycerides 144 mg/dL 3 (Trig/Chol/HDL) [address] [place] [address] [phone] Cholesterol 253 mg/dL 4 HDL Cholesterol 48.7 mg/dL 5 LDL Cholesterol 176 mg/dL 6 Laboratory 03/20/2018 [facility] Aso 200 Abnormal <200 7 test finding 101 (Antistreptolysin IU/mL Iu/[place] [address] O) Titer IU/mL [phone] Basic 02/15/2018 [facility] Sodium 143 N 135-145 Metabolic 101 mmol/[place] [address] [phone] Potassium 4.1 mmol/L N 3.5-5.0 Chloride 107 mmol/L N 101-111 Co2 Carbon Dioxide 28 mmol/L N 22-32 Anion Gap 8 mmol/L N 2-11 Glucose 115 mg/dL High 70-100 Blood Urea Nitrogen 16 mg/dL N 6-24 Creatinine 0.72 mg/dL N 0.51-0.95 BUN/Creatinine Ratio 22.2 High 8-20 Calcium 9.5 mg/dL N 8.6-10.3 Egfr Non- 80.6 >60 Egfr 97.5 >60 8 Lipid Profile 02/15/2018 [facility] Triglycerides 213 mg/dL 9 (Trig/Chol/HDL) [address] [place] [address] [phone] Cholesterol 254 mg/dL 10 HDL Cholesterol 51.3 mg/dL 11 LDL Cholesterol 160 mg/dL 12 Lyme Western 12/08/2016 [facility] Lyme Disease Negative N Negative Blot 101 [facility] [place] [place] [address] [phone] Lyme Disease IgG Bands Present No bands detecte <SEE NOTE> kDa N 13 Lyme Disease IgM Ab WB Negative N Negative Lyme Disease IgM Bands Present No bands detecte <SEE NOTE> kDa N 14 Lyme Disease Interpretation See Comment N 15 Laboratory test 12/08/2016 [facility] Miscellaneous Test See Comment N 16 finding [address] [place] [address] [phone] Laboratory test 12/08/2016 [facility] C Reactive Protein 1.30 mg /L N < 17 finding [address] [facility] [address] [place] [address] [phone] Cortisol 9.98 g/dL N 18 Thyroxine 9.23 g/mL N 6.09-12.23 Free T4 (Free Thyroxine) 1.03 ng/dL N 0.61-1.12 Hemoglobin A1c (Glyco HGB) 6.0 % High Less than 6.0 19 Aso (Antistreptolysin O) Titer 200 IU/mL IU/mL Abnormal <200 Iu/mL 20 Lyme Disease Serology Negative N Negative 21 Immunoglobulin E (Ige) 3.8 kU/L N <=214 22 Tryptase 6.3 ng/mL N <11.5 23 Dhea Sulfate 71.5 g/dL N <15-157 24 Lipid Profile 12/06/2016 [facility] Triglycerides 208 mg/dL N 25 (Trig/Chol/HDL) [address] [place] [address] [phone] Cholesterol 465 mg/dL N 26 HDL Cholesterol 41.8 mg/dL N 27 LDL Cholesterol 382 mg/dL N 28 Basic Metabolic Panel 12/06/2016 [facility] Sodium 139 mmol/L N 133-[address] [place] [address] [phone] Potassium 4.1 mmol/L N 3.5-5.0 Chloride 107 mmol/L N 101-111 Co2 Carbon Dioxide 22 mmol/L N 22-32 Anion Gap 10 mmol/L N 2-11 Glucose 105 mg/dL High 70-100 Blood Urea Nitrogen 20 mg/dL N 6-24 Creatinine 0.81 mg/dL N 0.51-0.95 BUN/Creatinine Ratio 24.7 High 8-20 Calcium 9.4 mg/dL N 8.6-10.3 Egfr Non- 70.5 N >60 Egfr 90.7 N >60 29 Comp Metabolic Panel 06/06/2016 [facility] Sodium 138 mmol/L N 133-[address] [place] [address] [phone] Potassium 4.2 mmol/L N 3.5-5.0 Chloride 104 mmol/L N 101-111 Co2 Carbon Dioxide 26 mmol/L N 22-32 Anion Gap 8 mmol/L N 2-11 Glucose 107 mg/dL High 70-100 Blood Urea Nitrogen 23 mg/dL N 6-24 Creatinine 0.90 mg/dL N 0.51-0.95 BUN/Creatinine Ratio 25.6 High 8-20 Calcium 9.8 mg/dL N 8.6-10.3 Total Protein 7.7 g/dL N 6.4-8.9 Albumin 4.7 g/dL N 3.2-5.2 Globulin 3.0 g/dL N 2-4 Albumin/Globulin Ratio 1.6 N 1-3 Total Bilirubin 1.40 mg/dL High 0.2-1.0 Alkaline Phosphatase 80 U/L N 34-104 Alt 14 U/L N 7-52 Ast 19 U/L N 13-39 Egfr Non- 62.6 N >60 Egfr 80.6 N >60 30 Laboratory test 06/06/2016 [facility] Free T4 (Free 0.85 ng/dL N 0.61-1.[address] Thyroxine) [place] [address] [phone] Magnesium 2.5 mg/dL N 1.9-2.7 CBC Auto Diff 06/06/2016 [facility] White Blood 7.4 10^3/uL N 3.5-10.[address] [place] [address] [phone] Red Blood Count 4.93 10^6/uL N 4.0-5.4 Hemoglobin 14.3 g/dL N 12.0-16.0 Hematocrit 43 % N 35-47 Mean Corpuscular Volume 88 fL N 80-97 Mean Corpuscular Hemoglobin 29 pg N 27-31 Mean Corpuscular HGB Conc 33 g/dL N 31-36 Red Cell Distribution Width 15 % N 10.5-15 Platelet Count 214 10^3/uL N 150-450 Mean Platelet Volume 8 um3 N 7.4-10.4 Abs Neutrophils 4.4 10^3/uL N 1.5-7.7 Abs Lymphocytes 2.0 10^3/uL N 1.0-4.8 Abs Monocytes 0.8 10^3/uL N 0-0.8 Abs Eosinophils 0.2 10^3/uL N 0-0.6 Abs Basophils 0.1 10^3/uL N 0-0.2 Abs Nucleated RBC 0 10^3/uL N Granulocyte % 59.6 % N 38-83 Lymphocyte % 26.4 % N 25-47 Monocyte % 10.7 % High 1-9 Eosinophil % 2.2 % N 0-6 Basophil % 1.1 % N 0-2 Nucleated Red Blood Cells % 0 N Laboratory 06/06/2016 [facility] TSH (Thyroid Stim 0.91 N 0.34 -5.60 test finding [address] Horm) mcIU/mL [place], [place] [id number] [phone] Lipid Profile 05/05/2016 [facility] Triglycerides 127 mg/dL N 31 (Trig/Chol/HDL [address] ) [place] [address] [phone] Cholesterol 259 mg/dL N 32 HDL Cholesterol 52.3 mg/dL N 33 LDL Cholesterol 181 mg/dL N 34 Laboratory test 05/05/2016 [facility] Glucose 102 mg/dL High 70-[address] [place] [address] [phone] Basic Metabolic 05/05/2016 [facility] Sodium 138 mmol/L N 133- [address] [place] [address] [phone] Potassium 4.2 mmol/L N 3.5-5.0 Chloride 106 mmol/L N 101-111 Co2 Carbon Dioxide 27 mmol/L N 22-32 Anion Gap 5 mmol/L N 2-11 Blood Urea Nitrogen 20 mg/dL N 6-24 Creatinine 0.82 mg/dL N 0.51-0.95 BUN/Creatinine Ratio 24.4 High 8-20 Calcium 9.4 mg/dL N 8.6-10.3 Egfr Non- 69.7 N >60 Egfr 89.7 N >60 35 Comp Metabolic Panel 06/08/2015 [facility] Sodium 136 mmol/L N 133-145 [address] [place] [address] [phone] Chloride 103 mmol/L N 101-111 Co2 Carbon Dioxide 26 mmol/L N 22-32 Glucose 112 mg/dL High 70-100 Blood Urea Nitrogen 23 mg/dL N 6-24 Creatinine 0.87 mg/dL N 0.51-0.95 BUN/Creatinine Ratio 26.4 High 8-20 Calcium 9.4 mg/dL N 8.6-10.3 Total Protein 7.4 g/dL N 6.4-8.9 Albumin 4.5 g/dL N 3.2-5.2 Globulin 2.9 g/dL N 2-4 Albumin/Globulin Ratio 1.6 N 1-3 Total Bilirubin 1.30 mg/dL High 0.2-1.0 Alkaline Phosphatase 81 U/L N 34-104 Alt 22 U/L N 7-52 Egfr Non- 65.3 N >60 Egfr 84.0 N >60 36 Potassium 3.8 mmol/L N 3.5-5.0 Anion Gap 7 mmol/L N 2-11 Ast 32 U/L N 13-39 Laboratory test 06/08/2015 [facility] Magnesium 2.2 mg/dL N 1.9-2.7 finding [address] [place] [address] [phone] Troponin-I (TnI) 0.00 ng/mL N <0.03 37 TSH (Thyroid Stim Horm) 2.92 ?IU/mL N 0.34-5.60 CBC Auto Diff 06/08/2015 [facility] White Blood 7.3 10^3/uL N 3.5-10.[address] [place] [address] [phone] Red Blood Count 4.59 10^6/uL N 4.0-5.4 Hemoglobin 13.9 g/dL N 12.0-16.0 Hematocrit 42 % N 35-47 Mean Corpuscular Volume 92 fL N 80-97 Mean Corpuscular Hemoglobin 30 pg N 27-31 Mean Corpuscular HGB Conc 33 g/dL N 31-36 Red Cell Distribution Width 14 % N 10.5-15 Abs Neutrophils 4.0 10^3/uL N 1.5-7.7 Abs Lymphocytes 2.2 10^3/uL N 1.0-4.8 Abs Monocytes 0.7 10^3/uL N 0-0.8 Abs Eosinophils 0.3 10^3/uL N 0-0.6 Abs Basophils 0.2 10^3/uL N 0-0.2 Abs Nucleated RBC 0.01 10^3/uL N Granulocyte % 55.3 % N 38-83 Lymphocyte % 29.8 % N 25-47 Monocyte % 9.2 % High 1-9 Eosinophil % 3.5 % N 0-6 Basophil % 2.2 % High 0-2 Nucleated Red Blood Cells % 0.2 N Platelet Count 165 10^3/uL N 150-450 38 Lipid Profile 07/03/2014 [facility] Triglycerides 64 mg/dL N 39 (Trig/Chol/HDL) [address] [place] [address] [phone] Cholesterol 225 mg/dL N 40 HDL Cholesterol 61.8 mg/dL N 41 LDL Cholesterol 150 mg/dL N 42 Comp Metabolic Panel 07/03/2014 [facility] Sodium 139 mmol/L N 133-[address] [place] [address] [phone] Potassium 4.2 mmol/L N 3.5-5.0 Chloride 106 mmol/L N 101-111 Co2 Carbon Dioxide 29 mmol/L N 22-32 Anion Gap 4 mmol/L N 2-11 Glucose 107 mg/dL High 70-100 Blood Urea Nitrogen 23 mg/dL N 6-24 Creatinine 0.86 mg/dL N 0.51-0.95 BUN/Creatinine Ratio 26.7 High 8-20 Calcium 9.5 mg/dL N 8.6-10.3 Total Protein 6.9 g/dL N 6.4-8.9 Albumin 4.5 g/dL N 3.2-5.2 Globulin 2.4 g/dL N 2-4 Albumin/Globulin Ratio 1.9 N 1-3 Total Bilirubin 1.40 mg/dL High 0.2-1.0 Alkaline Phosphatase 69 U/L N 34-104 Alt 16 U/L N 7-52 Ast 20 U/L N 13-39 Egfr Non- 66.4 N >60 Egfr 85.4 N >60 43 CBC Auto Diff 07/03/2014 [facility] White Blood 6.3 10^3/uL N 4.8-10.[address] [place] [address] [phone] Red Blood Count 4.43 10^6/uL N 4.0-5.4 Hemoglobin 13.7 g/dL N 12.0-16.0 Hematocrit 40 % N 35-47 Mean Corpuscular Volume 91 fL N 80-97 Mean Corpuscular Hemoglobin 31 pg N 27-31 Mean Corpuscular HGB Conc 34 g/dL N 31-36 Red Cell Distribution Width 15 % N 10.5-15 Platelet Count 193 10^3/uL N 150-450 Mean Platelet Volume 8 um3 N 7.4-10.4 Abs Neutrophils 3.8 10^3/uL N 1.5-7.7 Abs Lymphocytes 1.8 10^3/uL N 1.0-4.8 Abs Monocytes 0.6 10^3/uL N 0-0.8 Abs Eosinophils 0.2 10^3/uL N 0-0.6 Abs Basophils 0.1 10^3/uL N 0-0.2 Abs Nucleated RBC 0 10^3/uL N Granulocyte % 59.2 % N 38-83 Lymphocyte % 27.9 % N 25-47 Monocyte % 9.1 % High 1-9 Eosinophil % 2.4 % N 0-6 Basophil % 1.4 % N 0-2 Nucleated Red Blood Cells % 0.1 N Laboratory test 07/03/2014 [facility] Magnesium 2.3 mg/dL N 1.9-2.[address] [place] [address] [phone] Comp Metabolic 03/20/2014 [facility] Sodium 139 mmol/L N 133- [address] [place] [address] [phone] Potassium 4.1 mmol/L N 3.7-5.6 Chloride 104 mmol/L N 101-111 Co2 Carbon Dioxide 24 mmol/L N 22-32 Anion Gap 11 mmol/L N 2-11 Glucose 92 mg/dL N 70-100 Blood Urea Nitrogen 15 mg/dL N 6-24 Creatinine 0.76 mg/dL N 0.51-0.95 BUN/Creatinine Ratio 19.7 N 8-20 Calcium 9.9 mg/dL N 8.6-10.3 Total Protein 7.5 g/dL N 6.4-8.9 Albumin 4.6 g/dL N 3.2-5.2 Globulin 2.9 g/dL N 2-4 Albumin/Globulin Ratio 1.6 N 1-3 Total Bilirubin 1.80 mg/dL High 0.2-1.0 Alkaline Phosphatase 58 U/L N 34-104 Alt 14 U/L N 7-52 Ast 21 U/L N 13-39 Egfr Non- 76.6 N >60 Egfr 98.5 N >60 44 Laboratory test 03/20/2014 [facility] Troponin I 0.00 ng/mL N <0.03 [address] [place] [address] [phone] C Reactive Protein 1.28 mg/L N < 5.00 46 CBC Auto Diff 03/20/2014 [facility] White Blood 7.1 10^3/uL N 4.8-10.[address] [place] [address] [phone] Red Blood Count 4.43 10^6/uL N 4.0-5.4 Hemoglobin 13.1 g/dL N 12.0-16.0 Hematocrit 39 % N 35-47 Mean Corpuscular Volume 88 fL N 80-97 Mean Corpuscular Hemoglobin 29 pg N 27-31 Mean Corpuscular HGB Conc 33 g/dL N 31-36 Red Cell Distribution Width 15 % N 10.5-15 Platelet Count 217 10^3/uL N 150-450 Mean Platelet Volume 8 um3 N 7.4-10.4 Abs Neutrophils 5.3 10^3/uL N 1.5-7.7 Abs Lymphocytes 1.2 10^3/uL N 1.0-4.8 Abs Monocytes 0.4 10^3/uL N 0-0.8 Abs Eosinophils 0.1 10^3/uL N 0-0.6 Abs Basophils 0.1 10^3/uL N 0-0.2 Abs Nucleated RBC 0 10^3/uL N Granulocyte % 74.9 % N 38-83 Lymphocyte % 17.4 % Low 25-47 Monocyte % 6.1 % N 1-9 Eosinophil % 0.7 % N 0-6 Basophil % 0.9 % N 0-2 Nucleated Red Blood Cells % 0 N Laboratory test 03/20/2014 [facility] Lyme Disease Negative N Negative 47 finding [address] [place] [address] [phone] Laboratory test 02/25/2014 [facility] Cortisol 15.22 g/dL N 48, [address] [place] [address] [phone] Laboratory test 02/25/2014 [facility] Cortisol 20.02 g/dL N [address] [place] [phone] Laboratory test 02/25/2014 [facility] Cortisol 23.62 g/dL N [address] [place] [address] [phone] Laboratory test 02/25/2014 [facility] Cortisol 26.00 g/dL N [address] [place] [address] [phone] Laboratory test 02/25/2014 [facility] Troponin I 0.00 ng/mL N <0.03 [address] [place] [address] [phone] TSH (Thyroid Stimulating Horm) 0.91 IU/mL N 0.34-5.60 C Reactive Protein 1.31 mg/L N < 5.00 54 Lyme Disease Serology Negative N Negative 55 Comp Metabolic Panel 02/25/2014 [facility] Sodium 138 mmol/L N 133-145 [address] [place] [address] [phone] Potassium TNP mmol/L N 3.7-5.6 56 Chloride 104 mmol/L N 101-111 Co2 Carbon Dioxide 25 mmol/L N 22-32 Anion Gap TNP mmol/L N 2-11 57 Glucose 106 mg/dL High 70-100 58 Blood Urea Nitrogen 14 mg/dL N 6-24 59 Creatinine 0.80 mg/dL N 0.51-0.95 60 BUN/Creatinine Ratio 17.5 N 8-20 Calcium 9.9 mg/dL N 8.6-10.3 61 Total Protein 8.3 g/dL N 6.4-8.9 62 Albumin 5.0 g/dL N 3.2-5.2 63 Globulin 3.3 g/dL N 2-4 Albumin/Globulin Ratio 1.5 N 1-3 Total Bilirubin 1.60 mg/dL High 0.2-1.0 64 Alkaline Phosphatase 62 U/L N 34-104 65 Alt 20 U/L N 7-52 66 Ast TNP U/L N 13-39 67 Egfr Non- 72.2 N >60 Egfr 92.9 N >60 68 CBC Auto Diff 02/25/2014 [facility] White Blood 6.2 10^3/uL N 4.8-10.[address] [place] [address] [phone] Red Blood Count 4.73 10^6/uL N 4.0-5.4 Hemoglobin 14.0 g/dL N 12.0-16.0 Hematocrit 42 % N 35-47 Mean Corpuscular Volume 88 fL N 80-97 Mean Corpuscular Hemoglobin 30 pg N 27-31 Mean Corpuscular HGB Conc 34 g/dL N 31-36 Red Cell Distribution Width 14 % N 10.5-15 Platelet Count 195 10^3/uL N 150-450 Mean Platelet Volume 8 um3 N 7.4-10.4 Abs Neutrophils 5.0 10^3/uL N 1.5-7.7 Abs Lymphocytes 0.8 10^3/uL Low 1.0-4.8 Abs Monocytes 0.3 10^3/uL N 0-0.8 Abs Eosinophils 0 10^3/uL N 0-0.6 Abs Basophils 0.1 10^3/uL N 0-0.2 Abs Nucleated RBC 0 10^3/uL N Granulocyte % 80.4 % N 38-83 Lymphocyte % 13.2 % Low 25-47 Monocyte % 5.2 % N 1-9 Eosinophil % 0.4 % N 0-6 Basophil % 0.8 % N 0-2 Nucleated Red Blood Cells % 0.1 N Laboratory test 02/25/2014 [facility] Potassium 3.7 mmol/L N 3.7-5.6 finding 101 [facility] [place] [address] [phone] Ast Redraw 26 U/L N 13-39 Lipid Profile 06/30/2013 [facility] Triglycerides 109 mg/dL 40-200 (Trig/Chol/HDL) [address] [place] [address] [phone] Cholesterol 181 mg/dL Less than 200 HDL Cholesterol 52 mg/dL 40-60 69 Cholesterol/HDL Ratio 3.5 Average 1-4.44 LDL Cholesterol 107.2 High Less Than 100 70 Comp Metabolic Panel 06/30/2013 [facility] Sodium 141 mmol/L 133-145 [address] [place] [address] [phone] Potassium 4.1 mmol/L 3.5-5.0 Chloride 106 mmol/L 101-111 Co2 Carbon Dioxide 27.0 mmol/L 22-32 Anion Gap 8.0 mmol/L 2-11 Glucose 96 mg/dL 70-100 Blood Urea Nitrogen 17 mg/dL 6-24 Creatinine 0.70 mg/dL 0.50-1.40 BUN/Creatinine Ratio 24.3 High 8-20 Calcium 9.5 mg/dL 8.1-9.9 Total Protein 7.5 g/dL 6.2-8.1 Albumin 4.2 g/dL 3.2-5.2 Globulin 3.3 g/dL 2-4 Albumin/Globulin Ratio 1.3 1-3 Total Bilirubin 1.7 mg/dL High 0.4-1.5 Alkaline Phosphatase 64 U/L 30-110 Alt 26 U/L 14-54 Ast 31 U/L 12-42 Egfr Non- 84.5 >60 Egfr 108.7 >60 71 Laboratory 06/30/2013 [facility] Hepatitis C Nonreactive Nonreactive test finding 101 [facility] [place] [address] [phone] Urinalysis 12/30/2012 [facility] Urine Color Yellow W/Microscopic [address] [place] [address] [phone] Urine Appearance Clear Urine Specific [place] 1.013 1.010-1.030 Urine Esterase 3+ Abnormal Negative Urine Nitrate Negative Negative Urine Urobilinogen Negative E.U./dL Negative Urine Protein Negative mg/dL Negative Urine pH 6.0 5-9 Urine Blood 2+ Abnormal Negative Urine Ketones Negative mg/dL Negative Urine Bilirubin Negative Negative Urine Glucose Negative mg/dL Negative Urine WBC 3+ (>30 /hpf) None Seen Urine RBC 2+ (>3-10 /hpf) None Seen Urine Mucus Present /lpf Absent Urine Epithelial Cells 3+ Squamous /hpf None Seen Bacteria Urine 2+ None Seen Urine Culture And 12/30/2012 [facility] Urine Culture (SEE NOTE ) [address] [place] [address] [phone] Laboratory test 12/30/2012 [facility] Throat (SEE NOTE) [address] [place] [address] [phone] Laboratory test 11/08/2012 [facility] Genital (SEE NOTE) [address] [place] [address] [phone] Comp Metabolic 09/06/2012 [facility] Sodium 136 mmol/L 133- [address] [place] [address] [phone] Potassium 4.1 mmol/L 3.5-5.0 Chloride 103 mmol/L 101-111 Co2 Carbon Dioxide 27.0 mmol/L 22-32 Anion Gap 6.0 mmol/L 2-11 Glucose 98 mg/dL 70-100 Blood Urea Nitrogen 15 mg/dL 6-24 Creatinine 0.80 mg/dL 0.50-1.40 BUN/Creatinine Ratio 18.8 8-20 Calcium 9.6 mg/dL 8.1-9.9 Total Protein 7.3 g/dL 6.2-8.1 Albumin 4.2 g/dL 3.2-5.2 Globulin 3.1 g/dL 2-4 Albumin/Globulin Ratio 1.4 1-3 Total Bilirubin 1.5 mg/dL 0.4-1.5 Alkaline Phosphatase 63 U/L 30-110 Alt 24 U/L 14-54 Ast 30 U/L 12-42 Egfr Non- 72.4 >60 Egfr 93.2 >60 75 Laboratory test 09/06/2012 [facility] C Reactive < 0.5 Less than finding [address] Protein mg/dL 0.5 [place] [address] [phone] Laboratory test 06/03/2012 [facility] Magnesium 2.6 mg/dL 1.7 -2.6 finding [address] [place] [address] [phone] Lipase 32 U/L 22-51 Troponin I 0 ng/mL 0-0.06 76 TSH (Thyroid Stimulating Horm) 1.94 miu/mL 0.34-5.60 Comp Metabolic Panel 06/03/2012 [facility] Sodium 139 mmol/L 133-145 [address] [place] [address] [phone] Potassium 3.7 mmol/L 3.5-5.0 Chloride 103 mmol/L 101-111 Co2 Carbon Dioxide 27.0 mmol/L 22-32 Anion Gap 9.0 mmol/L 2-11 Glucose 151 mg/dL High 70-100 Blood Urea Nitrogen 14 mg/dL 6-24 Creatinine 0.90 mg/dL 0.50-1.40 BUN/Creatinine Ratio 15.6 8-20 Calcium 9.7 mg/dL 8.1-9.9 Total Protein 7.6 g/dL 6.2-8.1 Albumin 4.5 g/dL 3.2-5.2 Globulin 3.1 g/dL 2-4 Albumin/Globulin Ratio 1.5 1-3 Total Bilirubin 1.9 mg/dL High 0.4-1.5 Alkaline Phosphatase 75 U/L 30-110 Alt 36 U/L 14-54 Ast 36 U/L 12-42 Egfr Non- 63.4 >60 Egfr 81.6 >60 77 CBC Auto Diff 06/03/2012 [facility] White Blood 6.5 10^3/uL 4.8-10.[address] [place] [address] [phone] Red Blood Count 4.82 10^6/uL 4.0-5.4 Hemoglobin 14.3 g/dL 12.0-16.0 Hematocrit 42 % 35-47 Mean Corpuscular Volume 88 fL 80-97 Mean Corpuscular Hemoglobin 30 pg 27-31 Mean Corpuscular HGB Conc 34 g/dL 31-36 Red Cell Distribution Width 14 % 10.5-15 Platelet Count 209 10^3/uL 150-450 Mean Platelet Volume 8 um3 7.4-10.4 Abs Neutrophils 4.5 10^3/uL 1.5-7.7 Abs Lymphocytes 1.5 10^3/uL 1.0-4.8 Abs Monocytes 0.4 10^3/uL 0-0.8 Abs Eosinophils 0.1 10^3/uL 0-0.6 Abs Basophils 0.1 10^3/uL 0-0.2 Abs Nucleated RBC 0 10^3/uL Granulocyte % 69.2 % 38-83 Lymphocyte % 22.9 % Low 25-47 Monocyte % 5.8 % 1-9 Eosinophil % 1.2 % 0-6 Basophil % 0.9 % 0-2 Nucleated Red Blood Cells % 0 Lipid Panel - 02/14/2012 [facility] CPK (Creatine 61 U/L 0- [address] Kinase) [place] [address] [phone] Comp Metabolic 02/14/2012 [facility] Sodium 139 135-[address] mmol/[place] [address] [phone] Potassium 4.0 mmol/L 3.5-5.0 Chloride 105 mmol/L 101-111 Co2 (Carbon Dioxide) 26.0 mmol/L 22-32 Anion Gap 8.0 mmol/L 2-11 78 Glucose 98 mg/dL 70-100 BUN 17 mg/dL 6-24 Creatinine 0.9 mg/dL 0.50-1.40 One Over Creatinine 1.11 BUN/Creatinine Ratio 18.9 8-20 Calcium 9.3 mg/dL 8.1-9.9 Total Protein 6.4 GM/DL 6.2-8.1 Albumin 4.0 GM/DL 3.2-5.2 Globulin 2.4 GM/DL 2-4 Albumin/Globulin Ratio 1.7 1-3 Bilirubin Total 1.9 mg/dL High 0.4-1.5 79 Alkaline Phosphatase 54 U/L 30-110 Alt (SGPT) 30 U/L 14-54 Ast (Sgot) 29 U/L 12-42 eGFR Non- 63.4 > 60 eGFR 81.6 > 60 80 Lipid Profile 02/14/2012 [facility] Triglyceride 194 mg/dL 40 -200 (Trig/Chol/HDL) [address] [place] [address] [phone] Cholesterol 221 mg/dL High Less Than 200 81 High Density Lipoprotein 45 mg/dL 40-60 82 Cholesterol/HDL Ratio 4.91 AVERAGE High 1-4.44 Low Density Lipoprotein 137 mg/dL High Less Than 100 83 Lipid Profile 10/24/2011 [facility] Triglyceride 144 mg/dL 40 -200 (Trig/Chol/HDL) [address] [place] [address] [phone] Cholesterol 193 mg/dL Less Than 200 84 High Density Lipoprotein 45 mg/dL 40-60 85 Cholesterol/HDL Ratio 4.29 AVERAGE 1-4.44 Low Density Lipoprotein 119 mg/dL High Less Than 100 86 Comp Metabolic Panel 10/24/2011 [facility] Sodium 138 mmol/L 135-145 [address] [place] [address] [phone] Potassium 4.1 mmol/L 3.5-5.0 Chloride 106 mmol/L 101-111 Co2 (Carbon Dioxide) 27.0 mmol/L 22-32 Anion Gap 5.0 mmol/L 2-11 87 Glucose 109 mg/dL High 70-100 BUN 10 mg/dL 6-24 Creatinine 0.8 mg/dL 0.50-1.40 One Over Creatinine 1.25 BUN/Creatinine Ratio 12.5 8-20 Calcium 9.4 mg/dL 8.1-9.9 Total Protein 6.8 GM/DL 6.2-8.1 Albumin 4.2 GM/DL 3.2-5.2 Globulin 2.6 GM/DL 2-4 Albumin/Globulin Ratio 1.6 1-3 Bilirubin Total 2.2 mg/dL High 0.4-1.5 88 Alkaline Phosphatase 62 U/L 30-110 Alt (SGPT) 27 U/L 14-54 Ast (Sgot) 27 U/L 12-42 eGFR Non- 72.7 > 60 eGFR 93.5 > 60 89 Laboratory test 10/24/2011 [facility] CPK (Creatine 59 U/L 0- [address] Kinase) [place] [address] [phone] Laboratory test 09/24/2011 [facility] Troponin-I 0 NG/ML 0- 0.06 90 finding [address] [place] [address] [phone] Comp Metabolic 09/24/2011 [facility] Sodium 140 135-[address] mmol/[place] [address] [phone] Potassium 4.0 mmol/L 3.5-5.0 Chloride 106 mmol/L 101-111 Co2 (Carbon Dioxide) 27.0 mmol/L 22-32 Anion Gap 7.0 mmol/L 2-11 91 Glucose 105 mg/dL High 70-100 BUN 14 mg/dL 6-24 Creatinine 0.8 mg/dL 0.50-1.40 One Over Creatinine 1.25 BUN/Creatinine Ratio 17.5 8-20 Calcium 9.4 mg/dL 8.1-9.9 Total Protein 7.4 GM/DL 6.2-8.1 Albumin 4.2 GM/DL 3.2-5.2 Globulin 3.2 GM/DL 2-4 Albumin/Globulin Ratio 1.3 1-3 Bilirubin Total 1.3 mg/dL 0.4-1.5 92 Alkaline Phosphatase 66 U/L 30-110 Alt (SGPT) 26 U/L 14-54 Ast (Sgot) 28 U/L 12-42 eGFR Non- 72.7 > 60 eGFR 93.5 > 60 93 CBC Auto Diff 09/24/2011 [facility] White Blood 5.2 CUMM 4.8- 10.[address] [place] [address] [phone] Red Cell Count 4.53 CUMM 4.2-5.4 Hemoglobin 12.9 g/dL 12.0-16.0 Hematocrit 38 % 35-47 Mean Corpuscular Volume 83 um3 79-97 Mean Corpuscular Hemoglob 28 pg 27-31 Mean Corpuscular HGB Cone 34 g/dL 32-36 Redcell Distribution WDTH 17 % High 10.5-15 Platelet Count 187 CUMM 150-450 Mean Platelet Volume 8.1 um3 7.4-10.4 Gran % 58.2 % 38-83 Lymph % 30.8 % 25-47 Mononuclear % 7.9 % 1-9 Eosinophil % 1.9 % 0-6 Basophil % 1.2 % 0-2 Abs Lymphs 1.6 1.0-4.8 Abs Mononuclear 0.4 0-0.8 Absolute Neutrophil Count 3.0 1.5-7.7 Abs Eosinophils 0.1 0-0.6 Abs Basophils 0.1 0-0.2 Cath Panel 09/20/2011 [facility] PTT (Aptt) 25.5 SEC 25.1- [address] [place] [address] [phone] CBC With Manual 09/20/2011 [facility] White Blood 6.0 CUMM 4.8-10.[address] [place] [address] [phone] Red Cell Count 4.42 CUMM 4.2-5.4 Hemoglobin 12.6 g/dL 12.0-16.0 Hematocrit 37 % 35-47 Mean Corpuscular Volume 83 um3 79-97 Mean Corpuscular Hemoglob 29 pg 27-31 Mean Corpuscular HGB Cone 35 g/dL 32-36 Redcell Distribution WDTH 17 % High 10.5-15 Platelet Count 189 CUMM 150-450 Mean Platelet Volume 8.1 um3 7.4-10.4 Polysegmented Neutrophil 61 % 38-83 Lymphocyte 33 % 25-47 Monocyte 5 % 0-13 Eosinophil 1 % 0-6 Absolute Neutrophil Count 3.60 Anisocytosis SLIGHT Basic Metabolic Panel 09/20/2011 [facility] Sodium 138 mmol/L 135-[address] [place] [address] [phone] Potassium 4.5 mmol/L 3.5-5.0 Chloride 108 mmol/L 101-111 Co2 (Carbon Dioxide) 21.0 mmol/L Low 22-32 Anion Gap 9.0 mmol/L 2-11 94 Glucose 103 mg/dL High 70-100 BUN 14 mg/dL 6-24 Creatinine 0.8 mg/dL 0.50-1.40 One Over Creatinine 1.25 BUN/Creatinine Ratio 17.5 8-20 Calcium 9.4 mg/dL 8.1-9.9 eGFR Non- 72.7 > 60 eGFR 93.5 > 60 95 Protime 09/20/2011 [facility] Inr 0.85 Low 0.88-1.[address] [place] [address] [phone] Protime 10.0 SEC Low 10.3-13.5 97 Clotest 08/21/2011 [facility] M <SEE [address] NOTE> [place] [address] [phone] Protime 07/21/2011 [facility] Inr 0.98 0.88-1.[address] [place] [address] [phone] Protime 11.5 SEC 10.3-13.5 100 Laboratory test 07/21/2011 [facility] Troponin-I 0 NG/ML 0- 0.06 101 finding [address] [place] [address] [phone] Comp Metabolic 07/21/2011 [facility] Sodium 139 mmol/L 135- 145 Panel [address] [place] [address] [phone] Potassium 4.3 mmol/L 3.5-5.0 Chloride 104 mmol/L 101-111 Co2 (Carbon Dioxide) 25.0 mmol/L 22-32 Anion Gap 10.0 mmol/L 2-11 102 Glucose 111 mg/dL High 70-100 BUN 18 mg/dL 6-24 Creatinine 0.8 mg/dL 0.50-1.40 One Over Creatinine 1.25 BUN/Creatinine Ratio 22.5 High 8-20 Calcium 9.8 mg/dL 8.1-9.9 Total Protein 8.7 GM/DL High 6.2-8.1 Albumin 4.7 GM/DL 3.2-5.2 Globulin 4.0 GM/DL 2-4 Albumin/Globulin Ratio 1.2 1-3 Bilirubin Total 1.4 mg/dL 0.4-1.5 103 Alkaline Phosphatase 72 U/L 30-110 Alt (SGPT) 31 U/L 14-54 Ast (Sgot) 38 U/L 12-42 eGFR Non- 72.7 > 60 eGFR 93.5 > 60 104 Urine Culture 07/21/2011 [facility] M [address] <SEE NOTE> [place] [address] [phone] Urinalysis 07/21/2011 [facility] Ua Color YELLOW Yellow W/Microscopic [address] [place] [address] [phone] Appearance-Urine CLEAR Clear Specific [place]-Ur 1.013 1.010-1.030 Esterase-Urine 2+ Abnormal Negative Nitrite NEGATIVE Negative Voskwmocjdhv-Fp-GNN NEGATIVE Negative Protein-Urine TRACE Abnormal Negative PH-Urine 7.0 5-9 Blood-Urine 2+ Abnormal Negative Ketones-Urine NEGATIVE Negative Bilirubin-Ur NEGATIVE Negative Glucose-Urine NEGATIVE Negative WBC-Urine 0-2 0-5 RBC-Urine 0-2 0-2 Epith Cells-Ur RARE None Laboratory test 07/21/2011 [facility] PTT (Aptt) 22.3 SEC Low 25.1-38.[address] [place] [address] [phone] CBC Auto Diff 07/21/2011 [facility] White Blood 6.4 CUMM 4.8- 10.[address] [place] [address] [phone] Red Cell Count 4.64 CUMM 4.2-5.4 Hemoglobin 13.4 g/dL 12.0-16.0 Hematocrit 40 % 35-47 Mean Corpuscular Volume 85 um3 79-97 Mean Corpuscular Hemoglob 29 pg 27-31 Mean Corpuscular HGB Cone 34 g/dL 32-36 Redcell Distribution WDTH 16 % High 10.5-15 Platelet Count 180 CUMM 150-450 Mean Platelet Volume 8.0 um3 7.4-10.4 106 Manual Differential 07/21/2011 [facility] Polysegmented 78 % 38-[address] [place] [address] [phone] Band Neutrophil 1 % 0-8 Lymphocyte 14 % Low 25-47 Monocyte 6 % 0-13 Basophil 1 % 0-2 Absolute Neutrophil Count 5.0 Anisocytosis SLIGHT Laboratory test 07/21/2011 [facility] Magnesium 2.5 mg/dL 1.7 -2.[address] [place] [address] [phone] Lipase 32 U/L 22-51 TSH 1.28 MIU/ML 0.34-5.60 CBC Auto Diff 05/19/2011 [facility] White Blood 6.5 CUMM 4.8- 10.[address] [place] [address] [phone] Red Cell Count 4.22 CUMM 4.2-5.4 Hemoglobin 12.4 g/dL 12.0-16.0 Hematocrit 37 % 35-47 Mean Corpuscular Volume 88 um3 79-97 Mean Corpuscular Hemoglob 29 pg 27-31 Mean Corpuscular HGB Cone 33 g/dL 32-36 Redcell Distribution WDTH 15 % 10.5-15 Platelet Count 213 CUMM 150-450 Mean Platelet Volume 7.8 um3 7.4-10.4 Gran % 57.2 % 38-83 Lymph % 29.0 % 25-47 Mononuclear % 9.1 % High 1-9 Eosinophil % 3.1 % 0-6 Basophil % 1.6 % 0-2 Abs Lymphs 1.9 1.0-4.8 Abs Mononuclear 0.6 0-0.8 Absolute Neutrophil Count 3.7 1.5-7.7 Abs Eosinophils 0.2 0-0.6 Abs Basophils 0.1 0-0.2 Urinalysis W/Microscopic 05/19/2011 [facility] Ua Color YELLOW Yellow [address] [place] [address] [phone] Appearance-Urine CLEAR Clear Specific [place]-Ur 1.016 1.010-1.030 Esterase-Urine 2+ Abnormal Negative Nitrite NEGATIVE Negative Xxoyenbwyiym-Ck-XBV NEGATIVE Negative Protein-Urine NEGATIVE Negative PH-Urine 6.5 5-9 Blood-Urine 1+ Abnormal Negative Ketones-Urine NEGATIVE Negative Bilirubin-Ur NEGATIVE Negative Glucose-Urine NEGATIVE Negative WBC-Urine 5-10 Abnormal 0-5 RBC-Urine 2-5 0-2 Epith Cells-Ur MANY None Bacteria-Urine TRACE None Protime 05/19/2011 [facility] Inr 0.88 0.88-1.13 108 [address] [place] [address] [phone] Protime 10.3 SEC 10.3-13.5 109 Basic Metabolic Panel 05/19/2011 [facility] Sodium 142 mmol/L 135-[address] [place] [phone] Potassium 4.5 mmol/L 3.5-5.0 Chloride 107 mmol/L 101-111 Co2 (Carbon Dioxide) 26.0 mmol/L 22-32 Anion Gap 9.0 mmol/L 2-11 110 Glucose 113 mg/dL High 70-100 BUN 19 mg/dL 6-24 Creatinine 0.7 mg/dL 0.50-1.40 One Over Creatinine 1.42 BUN/Creatinine Ratio 27.1 High 8-20 Calcium 9.2 mg/dL 8.1-9.9 eGFR Non- 85.1 > 60 eGFR 109.4 > 60 111 Type And Screen 05/19/2011 [facility] Patient Blood O NEGATIVE (Pre-Adm) [address] Type [place] [address] [phone] Antibody Screen NEGATIVE Specimen Discard Date 06/02/11 112 Urine Culture 05/19/2011 [facility] M [address] <SEE NOTE> [place] [address] [phone] Liver Function 04/07/2011 [facility] Total 7.1 GM/DL 6.2- Panel Protein 8.1 [place] [address] [phone] Albumin 4.3 GM/DL 3.2-5.2 Globulin 2.8 GM/DL 2-4 Albumin/Globulin Ratio 1.5 1-3 Bilirubin Total 1.7 mg/dL High 0.4-1.5 114 Bilirubin Direct 0.2 mg/dL 0.1-0.5 Indirect Bilirubin 1.5 mg/dL High 0.3-1.0 115 Alkaline Phosphatase 69 U/L 30-110 Alt (SGPT) 38 U/L 14-54 Ast (Sgot) 35 U/L 12-42 Lipid Profile 03/27/2011 [facility] Triglyceride 145 mg/dL 40 -200 (Trig/Chol/HDL) [address] [place] [address] [phone] Cholesterol 217 mg/dL High Less Than 200 116 High Density Lipoprotein 47 mg/dL 40-60 117 Cholesterol/HDL Ratio 4.62 AVERAGE High 1-4.44 Low Density Lipoprotein 141 mg/dL High Less Than 100 118 Comp Metabolic Panel 03/27/2011 [facility] Sodium 140 mmol/L 135-[address] [place] [address] [phone] Potassium 4.3 mmol/L 3.5-5.0 Chloride 108 mmol/L 101-111 Co2 (Carbon Dioxide) 27.0 mmol/L 22-32 Anion Gap 5.0 mmol/L 2-11 119 Glucose 103 mg/dL High 70-100 BUN 18 mg/dL 6-24 Creatinine 0.7 mg/dL 0.50-1.40 One Over Creatinine 1.42 BUN/Creatinine Ratio 25.7 High 8-20 Calcium 9.4 mg/dL 8.1-9.9 Total Protein 6.9 GM/DL 6.2-8.1 Albumin 6.8 GM/DL High 3.2-5.2 Globulin 0.1 GM/DL Low 2-4 Albumin/Globulin Ratio 68.0 High 1-3 Bilirubin Total 1.4 mg/dL 0.4-1.5 120 Alkaline Phosphatase 66 U/L 30-110 Alt (SGPT) 29 U/L 14-54 Ast (Sgot) 30 U/L 12-42 eGFR Non- 85.1 > 60 eGFR 109.4 > 60 121 Lipid Panel - 03/27/2011 [facility] CPK (Creatine 70 U/L 0- [address] Kinase) [place] [address] [phone] Lipid Panel - 01/19/2010 [facility] CPK (Creatine 64 U/L 0- [address] Kinase) [place] [address] [phone] Comp Metabolic 01/19/2010 [facility] Sodium 140 135-[address] mmol/[place] [address] [phone] Potassium 4.4 mmol/L 3.5-5.0 Chloride 106 mmol/L 101-111 Co2 (Carbon Dioxide) 27.0 mmol/L 22-32 Anion Gap 7.0 mmol/L 2-11 122 Glucose 101 mg/dL High 70-100 123 BUN 16 mg/dL 6-24 Creatinine 0.80 mg/dL 0.50-1.40 One Over Creatinine 1.20 BUN/Creatinine Ratio 20.0 8-20 Calcium 9.5 mg/dL 8.1-9.9 124 Total Protein 6.9 GM/DL 6.2-8.1 Albumin 4.2 GM/DL 3.2-5.2 Globulin 2.7 GM/DL 2-4 Albumin/Globulin Ratio 1.6 1-3 Bilirubin Total 1.8 mg/dL High 0.4-1.5 125 Alkaline Phosphatase 54 U/L 30-110 Alt (SGPT) 38 U/L 14-54 Ast (Sgot) 29 U/L 12-42 eGFR Non- 77.8 > 60 eGFR 94.1 > 60 126 Lipid Profile 01/19/2010 [facility] Triglyceride 256 mg/dL High 40-200 (Trig/Chol/HDL) [address] [place] [address] [phone] Cholesterol 233 mg/dL High Less Than 200 127 High Density Lipoprotein 37 mg/dL Low 40-60 128 Cholesterol/HDL Ratio 6.30 AVERAGE High 1-4.44 Low Density Lipoprotein 145 mg/dL High Less Than 100 129 Laboratory test 08/26/2009 [facility] Erythrocyte Sed 16 MM/HR 0-[address] [place] [address] [phone] Cyclic Citrullinated Pep Igg <15.6 U () 130 CBC With 08/26/2009 [facility] White Blood 4.9 CUMM 4.8-10.[address] [place] [address] [phone] Red Cell Count 3.87 CUMM Low 4.2-5.4 Hemoglobin 11.9 g/dL Low 12.0-16.0 Hematocrit 34 % Low 35-47 Mean Corpuscular Volume 87 um3 79-97 Mean Corpuscular Hemoglob 31 pg 27-31 Mean Corpuscular HGB Cone 35 g/dL 32-36 Redcell Distribution WDTH 14 % 10.5-15 Platelet Count 201 CUMM 150-450 Mean Platelet Volume 7.3 um3 Low 7.4-10.4 Gran % 49.4 % 38-83 Lymph % 37.2 % 25-47 Mononuclear % 8.5 % 1-9 Eosinophil % 3.7 % 0-6 Basophil % 1.2 % 0-2 Abs Lymphs 1.8 1.0-4.8 Abs Mononuclear 0.4 0-0.8 Absolute Neutrophil Count 2.4 1.5-7.7 Abs Eosinophils 0.2 0-0.6 Abs Basophils 0.1 0-0.2 Laboratory test 08/26/2009 [facility] CPK (Creatine 89 U/L 0- [address] Kinase) [place] [address] [phone] C Reactive Protein < 0.5 mg/dL Less Than 0.5 Liver Function 08/26/2009 [facility] Total Protein 6.8 GM/DL 6.2-8.[address] [place] [address] [phone] Albumin 4.0 GM/DL 3.2-5.2 Globulin 2.8 GM/DL 2-4 Albumin/Globulin Ratio 1.4 1-3 Bilirubin Total 1.5 mg/dL 0.4-1.5 131 Bilirubin Direct 0.2 mg/dL 0.1-0.5 Indirect Bilirubin 1.3 mg/dL High 0.1-0.75 Alkaline Phosphatase 89 U/L 30-110 Alt (SGPT) 25 U/L 14-54 Ast (Sgot) 28 U/L 12-42 Lipid Profile 08/26/2009 [facility] Triglyceride 152 mg/dL 40 -200 (Trig/Chol/HDL) [address] [place] [address] [phone] Cholesterol 264 mg/dL High Less Than 200 132 High Density Lipoprotein 42 mg/dL 40-60 133 Cholesterol/HDL Ratio 6.29 AVERAGE High 1-4.44 Low Density Lipoprotein 192 mg/dL High Less Than 100 134 Basic Metabolic Panel 08/26/2009 [facility] Sodium 139 mmol/L 135-[address] [place] [address] [phone] Potassium 4.0 mmol/L 3.5-5.0 Chloride 107 mmol/L 101-111 Co2 (Carbon Dioxide) 27.0 mmol/L 22-32 Anion Gap 5.0 mmol/L 2-11 135 Glucose 105 mg/dL High 70-100 136 BUN 16 mg/dL 6-24 Creatinine 0.80 mg/dL 0.50-1.40 One Over Creatinine 1.20 BUN/Creatinine Ratio 20.0 8-20 Calcium 9.2 mg/dL 8.1-9.9 137 eGFR Non- 77.8 > 60 eGFR 94.1 > 60 138 Laboratory test 04/30/2009 [facility] CPK (Creatine 64 U/L 0- 170 finding [address]) [place] [address] [phone] Lipid Profile 04/30/2009 [facility] Triglyceride 207 High 40- 200 (Trig/Chol/HDL) [address] mg/[place] [address] [phone] Cholesterol 356 mg/dL High Less Than 200 139 High Density Lipoprotein 47 mg/dL 40-60 140 Cholesterol/HDL Ratio 7.57 AVERAGE High 1-4.44 Low Density Lipoprotein 268 mg/dL High Less Than 100 141 Liver Function 04/30/2009 [facility] Total Protein 7.4 GM/DL 6.2-8.[address] [place] [address] [phone] Albumin 4.2 GM/DL 3.6-5.4 Globulin 3.2 GM/DL 2-4 Albumin/Globulin Ratio 1.3 1-3 Bilirubin Total 1.5 mg/dL 0.4-1.5 142 Bilirubin Direct 0.2 mg/dL 0.1-0.5 Indirect Bilirubin 1.3 mg/dL High 0.1-0.75 Alkaline Phosphatase 85 U/L 30-110 Alt (SGPT) 21 U/L 14-54 Ast (Sgot) 25 U/L 12-42 Laboratory test 04/30/2009 [facility] Rheumatoid < 20.0 Less Than finding [address] Factor IU/mL 20 [place] [address] [phone] Hla B27 Positive () 143 Ssa/SSB 04/30/2009 [facility] Ssa NEGATIVE Negative [address] [place] [address] [phone] SSB NEGATIVE Negative Laboratory test 04/30/2009 [facility] SM(Ruth) Igg <0.2 U ( ) [address] [place] [address] [phone] Laboratory test 03/30/2009 [facility] CPK (Creatine 72 U/L 0- [address] Kinase) [place] [address] [phone] Lipid Profile 03/30/2009 [facility] Triglyceride 394 High 40- 200 (Trig/Chol/HDL) [address] mg/[place] [address] [phone] Cholesterol 485 mg/dL High Less Than 200 145 High Density Lipoprotein 37 mg/dL Low 40-60 146 Cholesterol/HDL Ratio 13.11 AVERAGE High 1-4.44 Low Density Lipoprotein 369 mg/dL High Less Than 100 147 Liver Function 03/30/2009 [facility] Total Protein 6.7 GM/DL 6.2-8.[address] [place] [address] [phone] Albumin 3.9 GM/DL 3.6-5.4 Globulin 2.8 GM/DL 2-4 Albumin/Globulin Ratio 1.4 1-3 Bilirubin Total 1.3 mg/dL 0.4-1.5 148 Bilirubin Direct 0.1 mg/dL 0.1-0.5 Indirect Bilirubin 1.2 mg/dL High 0.1-0.75 Alkaline Phosphatase 85 U/L 30-110 Alt (SGPT) 20 U/L 14-54 Ast (Sgot) 24 U/L 12-42 Lipid Profile 12/23/2008 [facility] Triglyceride 322 High 40- 200 149 (Trig/Chol/HDL) [address] mg/dL [place], [place] [id number] [phone] Cholesterol 446 mg/dL High Less Than 200 150 High Density Lipoprotein 35 mg/dL Low 40-60 151 Cholesterol/HDL Ratio 12.74 AVERAGE High 1-4.44 Low Density Lipoprotein 347 mg/dL High Less Than 100 152 Laboratory test 11/20/2008 [facility] 2HR Glucose 92 mg/dL 153, [address] [place] [address] [phone] Laboratory test 11/20/2008 [facility] Hemoglobin A1c 5.9 % < 6.[address] [place] [address] [phone] Fasting Glucose 87 mg/dL 70-110 1HR Glucose 110 mg/dL 156 Fasting Urine Glucose (SEE NOTE) Negative 157 Liver Function 11/18/2008 [facility] Total Protein 7.3 GM/DL 6.2-8.[address] [place] [address] [phone] Albumin 4.2 GM/DL 3.6-5.4 Globulin 3.1 GM/DL 2-4 Albumin/Globulin Ratio 1.4 1-3 Bilirubin Total 1.8 mg/dL High 0.4-1.5 158 Bilirubin Direct 0.1 mg/dL 0.1-0.5 Indirect Bilirubin 1.7 mg/dL High 0.1-0.75 Alkaline Phosphatase 77 U/L 30-110 Alt (SGPT) 20 U/L 14-54 Ast (Sgot) 21 U/L 12-42 Laboratory test 11/18/2008 [facility] CPK (Creatine 47 U/L 0- [address] Kinase) [place] [address] [phone] Lyme Disease Serology Negative Negative 159 Laboratory test 11/18/2008 [facility] TSH 1.45 0.34-5.60 finding [address] [facility] MIU/[place] [address] [phone] Thyroxine Free 11/18/2008 [facility] Free Thyroxine 0.90 NG/ML 0.61-1.24 160 [address] [place] [address] [phone] Lipid Profile 11/18/2008 [facility] Triglyceride 153 mg/dL 40 -200 (Trig/Chol/HDL) [address] [place] [address] [phone] Cholesterol 247 mg/dL High Less Than 200 161 High Density Lipoprotein 40 mg/dL 40-60 162 Cholesterol/HDL Ratio 6.18 AVERAGE High 1-4.44 Low Density Lipoprotein 176 mg/dL High Less Than 100 163 Lipid Profile 09/14/2008 [facility] Triglyceride 264 mg/dL High 40-200 (Trig/Chol/HDL) [address] [place], [place] [address] [phone] Cholesterol 480 mg/dL High Less Than 200 164 High Density Lipoprotein 33 mg/dL Low 40-60 165 Cholesterol/HDL Ratio 14.55 AVERAGE High 1-4.44 Low Density Lipoprotein 394 mg/dL High Less Than 100 166 Laboratory test 09/14/2008 [facility] Glucose 95 mg/dL 70- 100 167 finding [address] [place] [address] [phone] Lipid Profile 07/28/2008 [facility] Triglyceride 578 mg/dL High 40-200 168 (Trig/Chol/HDL) [address] [place] [address] [phone] Cholesterol 524 mg/dL High Less Than 200 169 High Density Lipoprotein 32 mg/dL Low 40-60 170 Cholesterol/HDL Ratio 16.38 AVERAGE High 1-4.44 Low Density Lipoprotein (SEE NOTE) mg/dL Less Than 100 171 Laboratory test 07/28/2008 [facility] Glucose 106 mg/dL High 70-100 172 finding [address] [place] [address] [phone] Ua Stat 01/15/2008 [facility] Ua Color YELLOW [address] [place] [address] [phone] Appearance-Urine CLEAR Specific [place]-Ur 1.009 Low 1.010-1.030 Esterase-Urine NEGATIVE Negative Nitrite NEGATIVE Negative Azheubthbhfv-Rn-NIT NEGATIVE Negative Protein-Urine NEGATIVE Negative PH-Urine 8.0 5-9 Blood-Urine 1+ Abnormal Negative Ketones-Urine NEGATIVE Negative Bilirubin-Ur NEGATIVE Negative Glucose-Urine NEGATIVE Negative Urinalysis W/Microscopic Stat 01/15/2008 [facility] Ua Color YELLOW [address] [place] [address] [phone] Appearance-Urine CLEAR Specific [place]-Ur 1.009 Low 1.010-1.030 Esterase-Urine NEGATIVE Negative Nitrite NEGATIVE Negative Ufbhujohunhg-La-ZGL NEGATIVE Negative Protein-Urine NEGATIVE Negative PH-Urine 8.0 5-9 Blood-Urine 1+ Abnormal Negative Ketones-Urine NEGATIVE Negative Bilirubin-Ur NEGATIVE Negative Glucose-Urine NEGATIVE Negative WBC-Urine 1-5 0-5 RBC-Urine 15-20 Abnormal 0-2 Mucus Urine MODERATE Epith Cells-Ur MODERATE Bacteria-Urine 2+ Amorphous Sed-U 1+ CBC With 01/15/2008 [facility] White Blood 14.2 CUMM High 4.8- 10.[address] [place] [address] [phone] Red Cell Count 4.66 CUMM 4.2-5.4 Hemoglobin 13.8 g/dL 12.0-16.0 Hematocrit 39 % 35-47 Mean Corpuscular Volume 85 um3 79-97 Mean Corpuscular Hemoglob 30 pg 27-31 Mean Corpuscular HGB Cone 35 g/dL 32-36 Redcell Distribution WDTH 15 % 10.5-15 Platelet Count 255 CUMM 150-450 Mean Platelet Volume 7.3 um3 Low 7.4-10.4 Polysegmented Neutrophil 79 % 38-83 Band Neutrophil 6 % 0-8 Lymphocyte 11 % 5-47 Monocyte 4 % 0-13 Absolute Neutrophil Count 12.0 RBC Morphology NORMAL Laboratory test finding 01/15/2008 [facility] Amylase 53 U/L 30-[address] [place] [address] [phone] Lipase 23 U/L 22-51 Comp Metabolic Panel 01/15/2008 [facility] Sodium 139 mmol/L 135-[address] [place] [address] [phone] Potassium 3.8 mmol/L 3.5-5.0 Chloride 106 mmol/L 101-111 Co2 (Carbon Dioxide) 24.0 mmol/L 22-32 Anion Gap 9.0 mmol/L 2-11 173 Glucose 133 mg/dL High 70-100 174 BUN 16 mg/dL 6-24 Creatinine 0.8 mg/dL 0.5-1.4 One Over Creatinine 1.25 BUN/Creatinine Ratio 20.0 8-20 Calcium 9.7 mg/dL 8.1-9.9 175 Total Protein 8.2 GM/DL High 6.2-8.1 Albumin 4.6 GM/DL 3.6-5.4 Globulin 3.6 GM/DL 2-4 Albumin/Globulin Ratio 1.3 1-3 Bilirubin Total 1.2 mg/dL 0.4-1.5 Alkaline Phosphatase 94 U/L 30-110 Alt (SGPT) 25 U/L 14-54 Ast (Sgot) 27 U/L 12-42 Laboratory test 11/12/2007 [facility] Vitamin B12 385 pg/mL 180-[address] [place] [address] [phone] Homocysteine 9 umol/L () 176 CBC With Manual 11/12/2007 [facility] White Blood 5.9 CUMM 4.8-10.[address] [place] [address] [phone] Red Cell Count 4.59 CUMM 4.2-5.4 Hemoglobin 13.4 g/dL 12.0-16.0 Hematocrit 39 % 35-47 Mean Corpuscular Volume 84 um3 79-97 Mean Corpuscular Hemoglob 29 pg 27-31 Mean Corpuscular HGB Cone 35 g/dL 32-36 Redcell Distribution WDTH 14 % 10.5-15 Platelet Count 263 CUMM 150-450 Mean Platelet Volume 7.8 um3 7.4-10.4 Polysegmented Neutrophil 50 % 38-83 Lymphocyte 39 % 5-47 Monocyte 8 % 0-13 Eosenophil 2 % 0-6 Basophil 1 % 0-2 Absolute Neutrophil Count 2.9 Anisocytosis SLIGHT Laboratory test 11/12/2007 [facility] Ige 7.9 kU/L () [address] [place] [address] [phone] Laboratory test 09/17/2007 [facility] Erythrocyte Sed 23 MM/HR 0-[address] [place] [address] [phone] CPK (Creatine Kinase) 60 U/L 0-170 C Reactive Protein < 0.5 mg/dL Less Than 0.5 Vitamin B12 253 pg/mL 180-915 TSH 1.33 MIU/ML 0.34-5.60 Laboratory test 06/12/2007 [facility] Antinuclear AB NEGATIVE Negative finding [address] [place] [address] [phone] CBC With 06/12/2007 [facility] White Blood 5.9 CUMM 4.8-10.8 Electronic Diff [address] [place] [address] [phone] Abs Basophils 0 0-0.2 Abs Eosinophils 0.2 0-0.6 Absolute Neutrophil Count 3.1 1.5-7.7 Abs Lymphs 2.1 1.0-4.8 Abs Mononuclear 0.5 0-0.8 Basophil % 0.6 % 0-2 Hematocrit 42 % 35-47 Hemoglobin 13.2 g/dL 12.0-16.0 Eosinophil % 3.1 % 0-6 Gran % 52.6 % 38-83 Lymph % 35.5 % 20-45 Mean Corpuscular HGB Cone 32 g/dL 32-36 Mean Corpuscular Hemoglob 28 pg 27-31 Mean Corpuscular Volume 88 um3 79-97 Mean Platelet Volume 7.9 um3 7.4-10.4 Mononuclear % 8.2 % 1-9 Platelet Count 272 CUMM 150-450 Red Cell Count 4.76 CUMM 4.2-5.4 Redcell Distribution WDTH 14 % 10.5-15 Laboratory test 06/12/2007 [facility] Vitamin B12 312 pg/mL 180-[address] [place] [address] [phone] Homocysteine 9 umol/L () 178 TSH 1.43 MIU/ML 0.34-5.60 1 Because ethnic data is not always readily available, this report includes an eGFR for both -Americans and non- Americans. The National Kidney Disease Education Program (NKDEP) does not endorse the use of the MDRD equation for patients that are not between the ages of 18 and 70, are , have extremes of body size, muscle mass, or nutritional status, or are non- or non-. According to the National Kidney Foundation, irrespective of diagnosis, the stage of the disease is based on the level of kidney function: Stage Description GFR(mL/min/1.73 m(2)) 1 Kidney damage with normal or decreased GFR 90 2 Kidney damage with mild decrease in GFR 60-89 3 Moderate decrease in GFR 30-59 4 Severe decrease in GFR 15-29 5 Kidney failure <15 (or dialysis) 2 SEE RESULT BELOW Name: ESTEVAN MILLER : [address]: Lizet Gonzalez NP Acct: [id number] Unit: [id number] AGE: 67 Location: [facility] Re06/24/18 SEX: F Status: REG REF SPEC: [id number] VANIA: 06/24/18-1421 [facility] DR: Lizet Gonzalez NP REQ: [id number] RECD: 06/24/18 STATUS: COMP _ SOURCE: URINE SPDESC: ORDERED: Urine Culture COMMENTS: [id number] Urine Source: Random Procedure Result Reported Site Urine Culture Final 06/25/18- 1638 ML No growth of clinically significant organisms * ML - Main Lab . END OF REPORT DEPARTMENT OF PATHOLOGY, [address] [place] [address] Scooter Tompkins M.D. Director [facility] # [id number] 3 Desirable: <150 Borderline High: 150-199 High: 200-499 Very High: >500 4 Desirable: <200 Borderline High: 200-239 High: >239 5 Low: <40 Desirable: 40-60 High: >60 6 Desirable: <100 Near Optimal: 100-129 Borderline High: 130-159 High: 160-189 Very High: >189 7 Normal values may vary with age, season and geographic area. Titers above upper limits may be indicative of infection, however only a two dilution rise in titer is required to be considered significant. ASO titer will usually rise above upper limits within one week of exposure, increase to peak levels at 3-5 weeks and return to baseline level at 6-12 twelve months. 8 Because ethnic data is not always readily available, this report includes an eGFR for both -Americans and non- Americans. The National Kidney Disease Education Program (NKDEP) does not endorse the use of the MDRD equation for patients that are not between the ages of 18 and 70, are , have extremes of body size, muscle mass, or nutritional status, or are non- or non-. According to the National Kidney Foundation, irrespective of diagnosis, the stage of the disease is based on the level of kidney function: Stage Description GFR(mL/min/1.73 m(2)) 1 Kidney damage with normal or decreased GFR 90 2 Kidney damage with mild decrease in GFR 60-89 3 Moderate decrease in GFR 30-59 4 Severe decrease in GFR 15-29 5 Kidney failure <15 (or dialysis) 9 Desirable: <150 Borderline High: 150-199 High: 200-499 Very High: >500 10 Desirable: <200 Borderline High: 200-239 High: >239 11 Low: <40 Desirable: 40-60 High: >60 12 Desirable: <100 Near Optimal: 100-129 Borderline High: 130-159 High: 160-189 Very High: >189 13 No bands detected 14 No bands detected 15 Specific serologic response to B. burgdorferi infection is not detected, but cannot rule out early infection during which low or undetectable antibody levels to B. burgdorferi may be present. If clinically indicated, a new serum specimen should be submitted in 7-14 days. ADDITIONAL INFORMATION CDC criteria require >=5 bands for IgG or >=2 bands for IgM for the Immunoblot to be considered positive. Bands (e.g.,p41) may be detected in patients without Lyme disease, and patterns not meeting the CDC criteria should be interpreted with caution. Immunoblot should be ordered only on specimens that are positive or equivocal by a FDA-licensed Lyme disease antibody screening test (e.g., EIA). Test Performed by: [facility] - [address] [address] 16 Test Result Flag Unit RefValue Histamine, Whole Blood 2415 H nmol/L 180-1800 INTERPRETIVE INFORMATION: Histamine, Whole Blood Test developed and characteristics determined by [employer] See Compliance Statement D: [employer] Performed by [employer], [address] [place] [address] [email or web address], Steve Selby MD - Lab. Director Test Performed by: [employer] [address] [place] [address] 17 Acute inflammation: >10.00 18 AM 8.7-22.4 PM <10 19 Therapeutic target for the treatment of diabetes Mellitus patients is <7% HBA1C, and in selective patients <6.0%.Please refer to [place] [employer] Diabetic care guidelines for further information. 20 Normal values may vary with age, season and geographic area. Titers above upper limits may be indicative of infection, however only a two dilution rise in titer is required to be considered significant. ASO titer will usually rise above upper limits within one week of exposure, increase to peak levels at 3-5 weeks and return to baseline level at 6-12 twelve months. 21 Serologic response to B. burgdorferi infection is not detected, but cannot rule out early infection during which low or undetectable antibody levels to B. burgdorferi may be present. If clinically indicated, a new serum specimen should be submitted in 7-14 days. Test Performed by: [place] [address] 22 Test Performed by: [place] [address] 23 Test Performed by: [place] [address] 24 Test Performed by: [place] [address] 25 Desirable <150 Borderline high 150-199 High 200-499 Very High >500 26 Desirable <200 Borderline high 200-239 High >239 27 Low <40 Desirable: 40-60 High: >60 28 Desirable: <100 mg/dL Near Optimal: 100-129 mg/dL Borderline High: 130-159 mg/dL High: 160-189 mg/dL Very High: >189 mg/dL 29 Because ethnic data is not always readily available, this report includes an eGFR for both -Americans and non- Americans. The National Kidney Disease Education Program (NKDEP) does not endorse the use of the MDRD equation for patients that are not between the ages of 18 and 70, are , have extremes of body size, muscle mass, or nutritional status, or are non- or non-. According to the National Kidney Foundation, irrespective of diagnosis, the stage of the disease is based on the level of kidney function: Stage Description GFR(mL/min/1.73 m(2)) 1 Kidney damage with normal or decreased GFR 90 2 Kidney damage with mild decrease in GFR 60-89 3 Moderate decrease in GFR 30-59 4 Severe decrease in GFR 15-29 5 Kidney failure <15 (or dialysis) 30 Because ethnic data is not always readily available, this report includes an eGFR for both -Americans and non- Americans. The National Kidney Disease Education Program (NKDEP) does not endorse the use of the MDRD equation for patients that are not between the ages of 18 and 70, are , have extremes of body size, muscle mass, or nutritional status, or are non- or non-. According to the National Kidney Foundation, irrespective of diagnosis, the stage of the disease is based on the level of kidney function: Stage Description GFR(mL/min/1.73 m(2)) 1 Kidney damage with normal or decreased GFR 90 2 Kidney damage with mild decrease in GFR 60-89 3 Moderate decrease in GFR 30-59 4 Severe decrease in GFR 15-29 5 Kidney failure <15 (or dialysis) 31 Desirable <150 Borderline high 150-199 High 200-499 Very High >500 32 Desirable <200 Borderline high 200-239 High >239 33 Low <40 Desirable: 40-60 High: >60 34 Desirable: <100 mg/dL Near Optimal: 100-129 mg/dL Borderline High: 130-159 mg/dL High: 160-189 mg/dL Very High: >189 mg/dL 35 Because ethnic data is not always readily available, this report includes an eGFR for both -Americans and non- Americans. The National Kidney Disease Education Program (NKDEP) does not endorse the use of the MDRD equation for patients that are not between the ages of 18 and 70, are , have extremes of body size, muscle mass, or nutritional status, or are non- or non-. According to the National Kidney Foundation, irrespective of diagnosis, the stage of the disease is based on the level of kidney function: Stage Description GFR(mL/min/1.73 m(2)) 1 Kidney damage with normal or decreased GFR 90 2 Kidney damage with mild decrease in GFR 60-89 3 Moderate decrease in GFR 30-59 4 Severe decrease in GFR 15-29 5 Kidney failure <15 (or dialysis) 36 Because ethnic data is not always readily available, this report includes an eGFR for both -Americans and non- Americans. The National Kidney Disease Education Program (NKDEP) does not endorse the use of the MDRD equation for patients that are not between the ages of 18 and 70, are , have extremes of body size, muscle mass, or nutritional status, or are non- or non-. According to the National Kidney Foundation, irrespective of diagnosis, the stage of the disease is based on the level of kidney function: Stage Description GFR(mL/min/1.73 m(2)) 1 Kidney damage with normal or decreased GFR 90 2 Kidney damage with mild decrease in GFR 60-89 3 Moderate decrease in GFR 30-59 4 Severe decrease in GFR 15-29 5 Kidney failure <15 (or dialysis) 37 Reference Range and Interpretation: TnI (ng/mL) Interpretation Less Than 0.03 ng/mL Not supportive of diagnosis of SD 0.03 - 0.50 ng/mL Indeterminate: suggest serial studies if clinically indicated. Greater than 0.5 ng/mL Consistent with diagnosis of SD 38 Platelet count confirmed by smear estimate. 39 Desirable <150 Borderline high 150-199 High 200-499 Very High >500 40 Desirable <200 Borderline high 200-239 High >239 41 Low <40 Desirable: 40-60 High: >60 42 Desirable <100 Near Optimal 100-129 Borderline high 130-159 High 160-189 Very High >189 43 Because ethnic data is not always readily available, this report includes an eGFR for both -Americans and non- Americans. The National Kidney Disease Education Program (NKDEP) does not endorse the use of the MDRD equation for patients that are not between the ages of 18 and 70, are , have extremes of body size, muscle mass, or nutritional status, or are non- or non-. According to the National Kidney Foundation, irrespective of diagnosis, the stage of the disease is based on the level of kidney function: Stage Description GFR(mL/min/1.73 m(2)) 1 Kidney damage with normal or decreased GFR 90 2 Kidney damage with mild decrease in GFR 60-89 3 Moderate decrease in GFR 30-59 4 Severe decrease in GFR 15-29 5 Kidney failure <15 (or dialysis) 44 Because ethnic data is not always readily available, this report includes an eGFR for both -Americans and non- Americans. The National Kidney Disease Education Program (NKDEP) does not endorse the use of the MDRD equation for patients that are not between the ages of 18 and 70, are , have extremes of body size, muscle mass, or nutritional status, or are non- or non-. According to the National Kidney Foundation, irrespective of diagnosis, the stage of the disease is based on the level of kidney function: Stage Description GFR(mL/min/1.73 m(2)) 1 Kidney damage with normal or decreased GFR 90 2 Kidney damage with mild decrease in GFR 60-89 3 Moderate decrease in GFR 30-59 4 Severe decrease in GFR 15-29 5 Kidney failure <15 (or dialysis) 45 Reference Range and Interpretation: TnI (ng/mL) Interpretation Less Than 0.03 ng/mL Not supportive of diagnosis of SD 0.03 - 0.50 ng/mL Indeterminate: suggest serial studies if clinically indicated. Greater than 0.5 ng/mL Consistent with diagnosis of SD 46 Acute inflammation: >10.00 47 Serologic response to B. burgdorferi infection is not detected, but cannot rule out early infection during which low or undetectable antibody levels to B. burgdorferi may be present. If clinically indicated, a new serum specimen should be submitted in 7-14 days. Test Performed by: [address] [address] Wine Specialist: Gerry Jarvis M.D. 48 BASELINE 49 AM 8.7-22.4 PM <10 50 AM 8.7-22.4 PM <10 51 AM 8.7-22.4 PM <10 52 AM 8.7-22.4 PM <10 53 Reference Range and Interpretation: TnI (ng/mL) Interpretation Less Than 0.03 ng/mL Not supportive of diagnosis of SD 0.03 - 0.50 ng/mL Indeterminate: suggest serial studies if clinically indicated. Greater than 0.5 ng/mL Consistent with diagnosis of SD 54 Specimen hemolyzed. Result may not be valid. Acute inflammation: >10.00 55 Serologic response to B. burgdorferi infection is not detected, but cannot rule out early infection during which low or undetectable antibody levels to B. burgdorferi may be present. If clinically indicated, a new serum specimen should be submitted in 7-14 days. REPORT NOTE: Hemolyzed Test Performed by: [address] [address] Wine Specialist: Gerry Jarvis M.D. 56 Cancelled. Specimen hemolyzed. Unable to perform test requested. Reorder for specimen recollection. Gricelda/ED was called for recollect at 1621 on 02/25/14 by [id number] 57 Cancelled. Specimen hemolyzed. Unable to perform test requested. Reorder for specimen recollection. Gricelda/ED was called for recollect at 1621 on 02/25/14 by [id number] 58 Specimen hemolyzed. Result may not be valid. 59 Specimen hemolyzed. Result may not be valid. 60 Specimen hemolyzed. Result may not be valid. 61 Specimen hemolyzed. Result may not be valid. 62 Specimen hemolyzed. Result may not be valid. 63 Specimen hemolyzed. Result may not be valid. 64 Specimen hemolyzed. Result may not be valid. 65 Specimen hemolyzed. Result may not be valid. 66 Specimen hemolyzed. Result may not be valid. 67 Cancelled. Specimen hemolyzed. Unable to perform test requested. Reorder for specimen recollection. Gricelda/ED was called for recollect at 1621 on 02/25/14 by [id number] 68 Because ethnic data is not always readily available, this report includes an eGFR for both -Americans and non- Americans. The National Kidney Disease Education Program (NKDEP) does not endorse the use of the MDRD equation for patients that are not between the ages of 18 and 70, are , have extremes of body size, muscle mass, or nutritional status, or are non- or non-. According to the National Kidney Foundation, irrespective of diagnosis, the stage of the disease is based on the level of kidney function: Stage Description GFR(mL/min/1.73 m(2)) 1 Kidney damage with normal or decreased GFR 90 2 Kidney damage with mild decrease in GFR 60-89 3 Moderate decrease in GFR 30-59 4 Severe decrease in GFR 15-29 5 Kidney failure <15 (or dialysis) 69 HDL Interpretation: Undesirable: High Risk: Less than 40 mg/dL Desirable: Low Risk: Greater than 60 mg/dL 70 LDL Interpretation: Low Risk Optimal Level: LDL Less than 100 mg/dL Near or Above Optimal: LDL 100-129 mg/dL Borderline High Risk: LDL 130-159 mg/dL High Risk: LDL 160-189 mg/dL Very High Risk: LDL Greater than 189 mg/dL 71 Because ethnic data is not always readily available, this report includes an eGFR for both -Americans and non- Americans. The National Kidney Disease Education Program (NKDEP) does not endorse the use of the MDRD equation for patients that are not between the ages of 18 and 70, are , have extremes of body size, muscle mass, or nutritional status, or are non- or non-. According to the National Kidney Foundation, irrespective of diagnosis, the stage of the disease is based on the level of kidney function: Stage Description GFR(mL/min/1.73 m(2)) 1 Kidney damage with normal or decreased GFR 90 2 Kidney damage with mild decrease in GFR 60-89 3 Moderate decrease in GFR 30-59 4 Severe decrease in GFR 15-29 5 Kidney failure <15 (or dialysis) 72 RUN DATE: 01/01/13 [facility] LIVE PAGE 1 RUN TIME: [address] [place] [address] Specimen Inquiry Name: ESTEVAN MILLER : [address]: Ulises Taylor MD Acct: [id number] Unit: [id number] AGE: 62 Location: [facility] Re12/30/12 SEX: F Status: REG REF SPEC: [id number] VANIA: 12/30/12-[address]: Doug Taylor MD REQ: [id number] RECD: 12/30/12 STATUS: COMP _ SOURCE: URINE SPDESC: ORDERED: Urine Culture QUERIES: [employer] Number [id number] Procedure Result Verified Site Urine Culture Final 01/01/13- 0950 ML Organism 1 NORMAL LYNN War Count 75-100,000 (Many) CFU/ML END OF REPORT * ML=Testing performed at Main Lab DEPARTMENT OF PATHOLOGY, [facility] [employer] [place], [place] [address] Scooter Tompkins M.D. Director [facility] Permit #[id number] 73 RUN DATE: 01/01/13 [facility] LIVE PAGE 1 RUN TIME: 1036 [facility] [address] [place], [place] [address] Specimen Inquiry Name: ESTEVAN MILLER : [address]: Ulises Taylor MD Acct: [id number] Unit: [id number] AGE: 62 Location: [facility] Re12/30/12 SEX: F Status: REG REF SPEC: [id number] VANIA: 12/30/12-[address]: Doug Taylor MD REQ: [id number] RECD: 12/30/12 STATUS: COMP _ SOURCE: THROAT SPDESC: ORDERED: Throat Culture QUERIES: [employer] Number [id number] Procedure Result Verified Site Throat Culture Final 01/01/13- 1037 ML Organism 1 NORMAL LYNN Quantity 3+ END OF REPORT * ML=Testing performed at Main Lab DEPARTMENT OF PATHOLOGY, [facility] [employer] [place] [address] Scooter Tompkins M.D. Director [facility] Permit #[id number] 74 RUN DATE: 11/10/12 [facility] LIVE PAGE 1 RUN TIME: 2072 [facility] [place], [place] [address] Specimen Inquiry Name: ESTEVAN MILLER : [address]: Vikki Chin NP Acct: [id number] Unit: [id number] AGE: 62 Location: [facility] Re11/08/12 SEX: F Status: REG REF SPEC: [id number] VANIA: 11/08/12-[address]: Vikki Chin NP REQ: [id number] RECD: 11/08/12 STATUS: COMP _ SOURCE: [facility]: ORDERED: Genital Culture QUERIES: Med[employer] Number [id number] Procedure Result Verified Site Genital Culture Final 11/10/12- 1556 ML Organism 1 NORMAL LYNN Quantity 1+ END OF REPORT * ML=Testing performed at Main Lab DEPARTMENT OF PATHOLOGY, [address] [place] [address] Scooter Tompkins M.D. Director [facility] Permit #[id number] 75 Because ethnic data is not always readily available, this report includes an eGFR for both -Americans and non- Americans. The National Kidney Disease Education Program (NKDEP) does not endorse the use of the MDRD equation for patients that are not between the ages of 18 and 70, are , have extremes of body size, muscle mass, or nutritional status, or are non- or non-. According to the National Kidney Foundation, irrespective of diagnosis, the stage of the disease is based on the level of kidney function: Stage Description GFR(mL/min/1.73 m(2)) 1 Kidney damage with normal or decreased GFR 90 2 Kidney damage with mild decrease in GFR 60-89 3 Moderate decrease in GFR 30-59 4 Severe decrease in GFR 15-29 5 Kidney failure <15 (or dialysis) 76 Reference Range and Interpretation: TnI (ng/ml) Interpretation Less Than 0.06 ng/mL Not supportive of diagnosis of SD 0.06 - 0.50 ng/ml Indeterminate: suggest serial studies if clinically indicated. Greater than 0.5 ng/mL Consistent with diagnosis of SD 77 Because ethnic data is not always readily available, this report includes an eGFR for both -Americans and non- Americans. The National Kidney Disease Education Program (NKDEP) does not endorse the use of the MDRD equation for patients that are not between the ages of 18 and 70, are , have extremes of body size, muscle mass, or nutritional status, or are non- or non-. According to the National Kidney Foundation, irrespective of diagnosis, the stage of the disease is based on the level of kidney function: Stage Description GFR(mL/min/1.73 m(2)) 1 Kidney damage with normal or decreased GFR 90 2 Kidney damage with mild decrease in GFR 60-89 3 Moderate decrease in GFR 30-59 4 Severe decrease in GFR 15-29 5 Kidney failure <15 (or dialysis) 78 Anion gap measurement may be of limited value in the presence of any alkalosis, especially in a combined acid base disorder. . 79 A metabolite of Naproxen, O-desmethylnaproxen, has been shown to interfere with the Jendrassik-Ritchey method for measuring total bilirubin. Samples from patients who have taken Naproxen have shown spurious elevation in total bilirubin levels. 80 Because ethnic data is not always readily available, this report includes an eGFR for both -Americans and non- Americans. The National Kidney Disease Education Program (NKDEP) does not endorse the use of the MDRD equation for patients that are not between the ages of 18 and 70, are , have extremes of body size, muscle mass, or nutritional status, or are non- or non-. According to the National Kidney Foundation, irrespective of diagnosis, the stage of the disease is based on the level of kidney function: Stage Description GFR(mL/min/1.73 m(2)) 1 Kidney damage with normal or decreased GFR 90 2 Kidney damage with mild decrease in GFR 60-89 3 Moderate decrease in GFR 30-59 4 Severe decrease in GFR 15-29 5 Kidney failure <15 (or dialysis) 81 CHOLESTEROL INTERPRETATION: Desirable: Less than 200 MG/DL Borderline-High Risk: 200-239 MG/DL High-Risk: 240 MG/DL and over 82 HDL INTERPRETATION: Undesirable: High Risk: Less than 40 MG/DL Desirable: Low Risk: Greater than 60 MG/DL 83 LDL INTERPRETATION: Low Risk Optimal Level: LDL Less than 100 MG/DL Near or Above Optimal: LDL 100-129 MG/DL Borderline High Risk: LDL 130-159 MG/DL High Risk: LDL 160-189 MG/DL Very High Risk: LDL Greater than 189 MG/DL 84 CHOLESTEROL INTERPRETATION: Desirable: Less than 200 MG/DL Borderline-High Risk: 200-239 MG/DL High-Risk: 240 MG/DL and over 85 HDL INTERPRETATION: Undesirable: High Risk: Less than 40 MG/DL Desirable: Low Risk: Greater than 60 MG/DL 86 LDL INTERPRETATION: Low Risk Optimal Level: LDL Less than 100 MG/DL Near or Above Optimal: LDL 100-129 MG/DL Borderline High Risk: LDL 130-159 MG/DL High Risk: LDL 160-189 MG/DL Very High Risk: LDL Greater than 189 MG/DL 87 Anion gap measurement may be of limited value in the presence of any alkalosis, especially in a combined acid base disorder. . 88 A metabolite of Naproxen, O-desmethylnaproxen, has been shown to interfere with the Jendrassik-Eliana method for measuring total bilirubin. Samples from patients who have taken Naproxen have shown spurious elevation in total bilirubin levels. 89 Because ethnic data is not always readily available, this report includes an eGFR for both -Americans and non- Americans. The National Kidney Disease Education Program (NKDEP) does not endorse the use of the MDRD equation for patients that are not between the ages of 18 and 70, are , have extremes of body size, muscle mass, or nutritional status, or are non- or non-. According to the National Kidney Foundation, irrespective of diagnosis, the stage of the disease is based on the level of kidney function: Stage Description GFR(mL/min/1.73 m(2)) 1 Kidney damage with normal or decreased GFR 90 2 Kidney damage with mild decrease in GFR 60-89 3 Moderate decrease in GFR 30-59 4 Severe decrease in GFR 15-29 5 Kidney failure <15 (or dialysis) 90 New Reference Range and Interpretation effective 02/21/2002 TnI (ng/ml) INTERPRETATION Less Than 0.06 ng/mL NOT SUPPORTIVE OF DIAGNOSIS OF SD 0.06 - 0.50 ng/ml INDETERMINATE: SUGGEST SERIAL STUDIES IF CLINICALLY INDICATED. Greater than 0.5 ng/mL CONSISTENT WITH DIAGNOSIS OF SD . 91 Anion gap measurement may be of limited value in the presence of any alkalosis, especially in a combined acid base disorder. . 92 A metabolite of Naproxen, O-desmethylnaproxen, has been shown to interfere with the Jendrassik-Eliana method for measuring total bilirubin. Samples from patients who have taken Naproxen have shown spurious elevation in total bilirubin levels. 93 Because ethnic data is not always readily available, this report includes an eGFR for both -Americans and non- Americans. The National Kidney Disease Education Program (NKDEP) does not endorse the use of the MDRD equation for patients that are not between the ages of 18 and 70, are , have extremes of body size, muscle mass, or nutritional status, or are non- or non-. According to the National Kidney Foundation, irrespective of diagnosis, the stage of the disease is based on the level of kidney function: Stage Description GFR(mL/min/1.73 m(2)) 1 Kidney damage with normal or decreased GFR 90 2 Kidney damage with mild decrease in GFR 60-89 3 Moderate decrease in GFR 30-59 4 Severe decrease in GFR 15-29 5 Kidney failure <15 (or dialysis) 94 Anion gap measurement may be of limited value in the presence of any alkalosis, especially in a combined acid base disorder. . 95 Because ethnic data is not always readily available, this report includes an eGFR for both -Americans and non- Americans. The National Kidney Disease Education Program (NKDEP) does not endorse the use of the MDRD equation for patients that are not between the ages of 18 and 70, are , have extremes of body size, muscle mass, or nutritional status, or are non- or non-. According to the National Kidney Foundation, irrespective of diagnosis, the stage of the disease is based on the level of kidney function: Stage Description GFR(mL/min/1.73 m(2)) 1 Kidney damage with normal or decreased GFR 90 2 Kidney damage with mild decrease in GFR 60-89 3 Moderate decrease in GFR 30-59 4 Severe decrease in GFR 15-29 5 Kidney failure <15 (or dialysis) 96 Recommended INR for Patients on Oral Anticoagulants Prophylaxis 2.0 - 3.0 Treatment of thrombosis 2.0 - 3.0 Prevention of embolism 2.0 - 3.0 Prevention of embolism from prosthetic heart valves 2.5 - 3.5 97 DIAGNOSIS,TREATMENT,AND THERAPY MUST BE BASED ON THE INR VALUE ALONE. 98 RUN DATE: 08/22/11 [facility] NMI LIVE PAGE 1 RUN TIME: 0850 Specimen Inquiry RUN USER: INTERFACE Name: ESTEVAN MILLER Status: REG REF Re08/21/11 Age/Sex: 61/F Unit#: [id number] Location: [facility] : 49 SPEC #: [id number] VANIA: 08/21/11 STATUS: XI REQ #: [id number] RECD: 08/21/11-[address] [facility] [address]: José Miguel Veloz MD SOURCE: CLOTEST ENTR: 08/21/[address]: Claudia KAMARA,Ulises Nguyễn [facility]: ORDERED: CLOTEST ACT WKST: MISC 08/22/11 #1 Procedure Result Verified Site > CLOTEST Final 08/22/11- 0849 ML CLOTEST NEGATIVE ML - [facility] Permit #[id number] [facility] [place] [address] DEPARTMENT OF PATHOLOGY, [address] [place] [address] [facility] Permit #[id number] Scooter Tompkins M.D. Director Juliane Hines M.D. Wire Setter 99 Recommended INR for Patients on Oral Anticoagulants Prophylaxis 2.0 - 3.0 Treatment of thrombosis 2.0 - 3.0 Prevention of embolism 2.0 - 3.0 Prevention of embolism from prosthetic heart valves 2.5 - 3.5 100 DIAGNOSIS,TREATMENT,AND THERAPY MUST BE BASED ON THE INR VALUE ALONE. 101 New Reference Range and Interpretation effective 02/21/2002 TnI (ng/ml) INTERPRETATION Less Than 0.06 ng/mL NOT SUPPORTIVE OF DIAGNOSIS OF SD 0.06 - 0.50 ng/ml INDETERMINATE: SUGGEST SERIAL STUDIES IF CLINICALLY INDICATED. Greater than 0.5 ng/mL CONSISTENT WITH DIAGNOSIS OF SD . 102 Anion gap measurement may be of limited value in the presence of any alkalosis, especially in a combined acid base disorder. . 103 A metabolite of Naproxen, O-desmethylnaproxen, has been shown to interfere with the Jendrassik-Eliana method for measuring total bilirubin. Samples from patients who have taken Naproxen have shown spurious elevation in total bilirubin levels. 104 Because ethnic data is not always readily available, this report includes an eGFR for both -Americans and non- Americans. The National Kidney Disease Education Program (NKDEP) does not endorse the use of the MDRD equation for patients that are not between the ages of 18 and 70, are , have extremes of body size, muscle mass, or nutritional status, or are non- or non-. According to the National Kidney Foundation, irrespective of diagnosis, the stage of the disease is based on the level of kidney function: Stage Description GFR(mL/min/1.73 m(2)) 1 Kidney damage with normal or decreased GFR 90 2 Kidney damage with mild decrease in GFR 60-89 3 Moderate decrease in GFR 30-59 4 Severe decrease in GFR 15-29 5 Kidney failure <15 (or dialysis) 105 RUN DATE: 07/23/11 [facility] NMI LIVE PAGE 1 RUN TIME: 1202 Specimen Inquiry RUN USER: INTERFACE Name: ESTEVAN MILLER Status: DIAMOND CARMEN Re07/21/11 Age/Sex: 61/F Unit#: [id number] Location: [facility] : 49 SPEC #: [id number] VANIA: 07/21/11 STATUS: XI REQ #: [id number] RECD: 07/21/11-[address] [facility] [address]: Juanita KAMARAEduardo SOURCE: URINE ENTR: 07/21/11-[address]: Claudia KAMARA,Ulises Nguyễn [facility]: ORDERED: URINE C S ACT WKST: UR 07/23/11 #1 Procedure Result Verified Site > URINE CULTURE SENSITIVI Final 07/23/11- 1202 ML SPECIMEN CONTAINS NORMAL URETHRAL OR PERINEAL LYNN AND DOES NOT SUGGEST URINARY TRACT INFECTION [facility] Permit #[id number] [address] [place] [address] DEPARTMENT OF PATHOLOGY, [address] [place] [address] [facility] Permit #[id number] Scooter Tompkins M.D. Director Juliane Hines M.D. Wire Setter 106 Basophilia % 107 AA 05/29 108 Recommended INR for Patients on Oral Anticoagulants Prophylaxis 2.0 - 3.0 Treatment of thrombosis 2.0 - 3.0 Prevention of embolism 2.0 - 3.0 Prevention of embolism from prosthetic heart valves 2.5 - 3.5 109 DIAGNOSIS,TREATMENT,AND THERAPY MUST BE BASED ON THE INR VALUE ALONE. 110 Anion gap measurement may be of limited value in the presence of any alkalosis, especially in a combined acid base disorder. . 111 Because ethnic data is not always readily available, this report includes an eGFR for both -Americans and non- Americans. The National Kidney Disease Education Program (NKDEP) does not endorse the use of the MDRD equation for patients that are not between the ages of 18 and 70, are , have extremes of body size, muscle mass, or nutritional status, or are non- or non-. According to the National Kidney Foundation, irrespective of diagnosis, the stage of the disease is based on the level of kidney function: Stage Description GFR(mL/min/1.73 m(2)) 1 Kidney damage with normal or decreased GFR 90 2 Kidney damage with mild decrease in GFR 60-89 3 Moderate decrease in GFR 30-59 4 Severe decrease in GFR 15-29 5 Kidney failure <15 (or dialysis) 112 PREADMISSION TESTING SAMPLES FOR BLOOD BANK WILL BE HELD FOR 14 DAYS FROM THE DATE OF COLLECTION *IF* THE FOLLOWING CRITERIA ARE MET: 1) THE PATIENT HAS *NOT* BEEN IN THE LAST 3 MONTHS. 2) THE PATIENT HAS *NOT* BEEN TRANSFUSED IN THE LAST 3 MONTHS. PREADMISSION TESTING SAMPLES WILL *NOT* BE HELD FOR 14 DAYS FROM PATIENTS WHO IN THE LAST 3 MONTHS: 1) HAVE BEEN 2) HAVE BEEN TRANSFUSED THESE PATIENTS *MUST* BE COLLECTED WITHIN 3 DAYS OF THE SURGERY DATE. 113 RUN DATE: 05/21/11 [facility] NMI LIVE PAGE 1 RUN TIME: 822 Specimen Inquiry RUN USER: INTERFACE Name: ESTEVAN MILLER Status: REG REF Re05/19/11 Age/Sex: 60/F Unit#: [id number] Location: [facility]. : 49 SPEC #: [id number] VANIA: 05/19/11 STATUS: COMP REQ #: [id number] RECD: 05/19/[address] [facility] [address]: Nasir KAMARA,Tristan Mae SOURCE: URINE ENTR: 05/19/11-8 [facility] DR: Claudia KAMARA,Ulises Nguyễn [facility]: ORDERED: URINE C S ACT WKST: UR 05/21/11 #1 Procedure Result Verified Site > URINE CULTURE SENSITIVI Final 05/21/11- 08 ML SCANT NORMAL URETHRAL OR PERINEAL LYNN [facility] Permit #[id number] [address] [place] [address] DEPARTMENT OF PATHOLOGY, [address] [place] [address] [facility] Permit #[id number] Scooter Tompkins M.D. Director Juliane Hines M.D. Wire Setter 114 A metabolite of Naproxen, O-desmethylnaproxen, has been shown to interfere with the Nik method for measuring total bilirubin. Samples from patients who have taken Naproxen have shown spurious elevation in total bilirubin levels. 115 Please note updated reference range, effective 12/09/09 116 CHOLESTEROL INTERPRETATION: Desirable: Less than 200 MG/DL Borderline-High Risk: 200-239 MG/DL High-Risk: 240 MG/DL and over 117 HDL INTERPRETATION: Undesirable: High Risk: Less than 40 MG/DL Desirable: Low Risk: Greater than 60 MG/DL 118 LDL INTERPRETATION: Low Risk Optimal Level: LDL Less than 100 MG/DL Near or Above Optimal: LDL 100-129 MG/DL Borderline High Risk: LDL 130-159 MG/DL High Risk: LDL 160-189 MG/DL Very High Risk: LDL Greater than 189 MG/DL 119 Anion gap measurement may be of limited value in the presence of any alkalosis, especially in a combined acid base disorder. . 120 A metabolite of Naproxen, O-desmethylnaproxen, has been shown to interfere with the Jendrassik-Ritchey method for measuring total bilirubin. Samples from patients who have taken Naproxen have shown spurious elevation in total bilirubin levels. 121 Because ethnic data is not always readily available, this report includes an eGFR for both -Americans and non- Americans. The National Kidney Disease Education Program (NKDEP) does not endorse the use of the MDRD equation for patients that are not between the ages of 18 and 70, are , have extremes of body size, muscle mass, or nutritional status, or are non- or non-. According to the National Kidney Foundation, irrespective of diagnosis, the stage of the disease is based on the level of kidney function: Stage Description GFR(mL/min/1.73 m(2)) 1 Kidney damage with normal or decreased GFR 90 2 Kidney damage with mild decrease in GFR 60-89 3 Moderate decrease in GFR 30-59 4 Severe decrease in GFR 15-29 5 Kidney failure <15 (or dialysis) 122 Anion gap measurement may be of limited value in the presence of any alkalosis, especially in a combined acid base disorder. . 123 Note change in reference range as of 01/09/08. The change was based on recommendations from the [place] [employer]. 124 Please note change in reference range effective 07 . 125 A metabolite of Naproxen, O-desmethylnaproxen, has been shown to interfere with the Jendrassik-Eliana method for measuring total bilirubin. Samples from patients who have taken Naproxen have shown spurious elevation in total bilirubin levels. 126 Because ethnic data is not always readily available, this report includes an eGFR for both -Americans and non- Americans. The National Kidney Disease Education Program (NKDEP) does not endorse the use of the MDRD equation for patients that are not between the ages of 18 and 70, are , have extremes of body size, muscle mass, or nutritional status, or are non- or non-. According to the National Kidney Foundation, irrespective of diagnosis, the stage of the disease is based on the level of kidney function: Stage Description GFR(mL/min/1.73 m(2)) 1 Kidney damage with normal or decreased GFR 90 2 Kidney damage with mild decrease in GFR 60-89 3 Moderate decrease in GFR 30-59 4 Severe decrease in GFR 15-29 5 Kidney failure <15 (or dialysis) 127 CHOLESTEROL INTERPRETATION: Desirable: Less than 200 MG/DL Borderline-High Risk: 200-239 MG/DL High-Risk: 240 MG/DL and over 128 HDL INTERPRETATION: Undesirable: High Risk: Less than 40 MG/DL Desirable: Low Risk: Greater than 60 MG/DL 129 LDL INTERPRETATION: Low Risk Optimal Level: LDL Less than 100 MG/DL Near or Above Optimal: LDL 100-129 MG/DL Borderline High Risk: LDL 130-159 MG/DL High Risk: LDL 160-189 MG/DL Very High Risk: LDL Greater than 189 MG/DL 130 -- REFERENCE VALUE -- <20.0 (Negative) 20.0-39.9 (Weak Positive) 40.0-59.9 (Positive) >=60.0 (Strong Positive) Test Performed by: [facility] Dpt of Lab Med and Pathology [address] [place] [address] Wine Specialist: Emre Zamora III, M.D. 131 A metabolite of Naproxen, O-desmethylnaproxen, has been shown to interfere with the Jendrassik-Ritchey method for measuring total bilirubin. Samples from patients who have taken Naproxen have shown spurious elevation in total bilirubin levels. 132 CHOLESTEROL INTERPRETATION: Desirable: Less than 200 MG/DL Borderline-High Risk: 200-239 MG/DL High-Risk: 240 MG/DL and over 133 HDL INTERPRETATION: Undesirable: High Risk: Less than 40 MG/DL Desirable: Low Risk: Greater than 60 MG/DL 134 LDL INTERPRETATION: Low Risk Optimal Level: LDL Less than 100 MG/DL Near or Above Optimal: LDL 100-129 MG/DL Borderline High Risk: LDL 130-159 MG/DL High Risk: LDL 160-189 MG/DL Very High Risk: LDL Greater than 189 MG/DL 135 Anion gap measurement may be of limited value in the presence of any alkalosis, especially in a combined acid base disorder. . 136 Note change in reference range as of 01/09/08. The change was based on recommendations from the [place] [employer]. 137 Please note change in reference range effective 07 . 138 Because ethnic data is not always readily available, this report includes an eGFR for both -Americans and non- Americans. The National Kidney Disease Education Program (NKDEP) does not endorse the use of the MDRD equation for patients that are not between the ages of 18 and 70, are , have extremes of body size, muscle mass, or nutritional status, or are non- or non-. According to the National Kidney Foundation, irrespective of diagnosis, the stage of the disease is based on the level of kidney function: Stage Description GFR(mL/min/1.73 m(2)) 1 Kidney damage with normal or decreased GFR 90 2 Kidney damage with mild decrease in GFR 60-89 3 Moderate decrease in GFR 30-59 4 Severe decrease in GFR 15-29 5 Kidney failure <15 (or dialysis) 139 CHOLESTEROL INTERPRETATION: Desirable: Less than 200 MG/DL Borderline-High Risk: 200-239 MG/DL High-Risk: 240 MG/DL and over 140 HDL INTERPRETATION: Undesirable: High Risk: Less than 40 MG/DL Desirable: Low Risk: Greater than 60 MG/DL 141 LDL INTERPRETATION: Low Risk Optimal Level: LDL Less than 100 MG/DL Near or Above Optimal: LDL 100-129 MG/DL Borderline High Risk: LDL 130-159 MG/DL High Risk: LDL 160-189 MG/DL Very High Risk: LDL Greater than 189 MG/DL 142 A metabolite of Naproxen, O-desmethylnaproxen, has been shown to interfere with the Jendrassik-Ritchey method for measuring total bilirubin. Samples from patients who have taken Naproxen have shown spurious elevation in total bilirubin levels. 143 Test Performed by: [facility] Dpt of Lab Med and Pathology [address] [place] [id number] Wine Specialist: Emre Zamora III, M.D. 144 -- REFERENCE VALUE -- <1.0 (Negative) > or=1.0 (Positive) Test Performed by: [facility] Dpt of Lab Med and Pathology [address] [place] [id number] Wine Specialist: Emre Zamora III, M.D. 145 CHOLESTEROL INTERPRETATION: Desirable: Less than 200 MG/DL Borderline-High Risk: 200-239 MG/DL High-Risk: 240 MG/DL and over 146 HDL INTERPRETATION: Undesirable: High Risk: Less than 40 MG/DL Desirable: Low Risk: Greater than 60 MG/DL 147 LDL INTERPRETATION: Low Risk Optimal Level: LDL Less than 100 MG/DL Near or Above Optimal: LDL 100-129 MG/DL Borderline High Risk: LDL 130-159 MG/DL High Risk: LDL 160-189 MG/DL Very High Risk: LDL Greater than 189 MG/DL 148 A metabolite of Naproxen, O-desmethylnaproxen, has been shown to interfere with the Jendrassik-Eliana method for measuring total bilirubin. Samples from patients who have taken Naproxen have shown spurious elevation in total bilirubin levels. 149 FASTING 150 CHOLESTEROL INTERPRETATION: Desirable: Less than 200 MG/DL Borderline-High Risk: 200-239 MG/DL High-Risk: 240 MG/DL and over 151 HDL INTERPRETATION: Undesirable: High Risk: Less than 40 MG/DL Desirable: Low Risk: Greater than 60 MG/DL 152 LDL INTERPRETATION: Low Risk Optimal Level: LDL Less than 100 MG/DL Near or Above Optimal: LDL 100-129 MG/DL Borderline High Risk: LDL 130-159 MG/DL High Risk: LDL 160-189 MG/DL Very High Risk: LDL Greater than 189 MG/DL 153 2HR GTT 2HR SERUM 2HR GLUCOSE from [id number]. 154 REFERENCE RANGE: 5-15 MG/DL ABOVE FASTING 155 THERAPEUTIC TARGET FOR THE TREATMENT OF DIABETES MELLITUS PATIENTS IS <7% HBA1C, AND IN SELECTIVE PATIENTS <6.0%. PLEASE REFER TO [place] [employer] DIABETIC CARE GUIDELINES FOR FURTHER INFORMATION. 156 REFERENCE RANGE: 20-50 MG/DL ABOVE FASTING 157 URINE TESTED BY [facility] - NEGATIVE RESULT, 158 A metabolite of Naproxen, O-desmethylnaproxen, has been shown to interfere with the Jendrassik-Ritchey method for measuring total bilirubin. Samples from patients who have taken Naproxen have shown spurious elevation in total bilirubin levels. 159 Test Performed by: [facility] Dpt of Lab Med and Pathology [address] [place] [address] Wine Specialist: Emre Zamora III, M.D. 160 PLEASE NOTE NEW REFERENCE RANGES. 161 CHOLESTEROL INTERPRETATION: Desirable: Less than 200 MG/DL Borderline-High Risk: 200-239 MG/DL High-Risk: 240 MG/DL and over 162 HDL INTERPRETATION: Undesirable: High Risk: Less than 40 MG/DL Desirable: Low Risk: Greater than 60 MG/DL 163 LDL INTERPRETATION: Low Risk Optimal Level: LDL Less than 100 MG/DL Near or Above Optimal: LDL 100-129 MG/DL Borderline High Risk: LDL 130-159 MG/DL High Risk: LDL 160-189 MG/DL Very High Risk: LDL Greater than 189 MG/DL 164 CHOLESTEROL INTERPRETATION: Desirable: Less than 200 MG/DL Borderline-High Risk: 200-239 MG/DL High-Risk: 240 MG/DL and over 165 HDL INTERPRETATION: Undesirable: High Risk: Less than 40 MG/DL Desirable: Low Risk: Greater than 60 MG/DL 166 LDL INTERPRETATION: Low Risk Optimal Level: LDL Less than 100 MG/DL Near or Above Optimal: LDL 100-129 MG/DL Borderline High Risk: LDL 130-159 MG/DL High Risk: LDL 160-189 MG/DL Very High Risk: LDL Greater than 189 MG/DL 167 Note change in reference range as of 01/09/08. The change was based on recommendations from the [place] [employer]. 168 PATIENT MAY HAVE RESULTS PER DOCTOR'S AUTHORIZATION. Questions regarding this report should be directed to your doctor. 169 CHOLESTEROL INTERPRETATION: Desirable: Less than 200 MG/DL Borderline-High Risk: 200-239 MG/DL High-Risk: 240 MG/DL and over 170 HDL INTERPRETATION: Undesirable: High Risk: Less than 40 MG/DL Desirable: Low Risk: Greater than 60 MG/DL 171 UNABLE TO CALCULATE LDL TRIGLYCERIDE IS > 400 172 Note change in reference range as of 01/09/08. The change was based on recommendations from the [place] [employer]. 173 Anion gap measurement may be of limited value in the presence of any alkalosis, especially in a combined acid base disorder. . 174 Note change in reference range as of 01/09/08. The change was based on recommendations from the [place] [employer]. 175 Please note change in reference range effective 07 . 176 -- REFERENCE VALUE -- <=13 (Fasting) Test Performed by: [facility] Dpt of Lab Med and Pathology [address] [place] [address] Wine Specialist: Emre Zamora III, M.D. 177 -- REFERENCE VALUE -- Mean +1 SD +2 SD 13.2 41.0 127.0 Test Performed by: [facility] Dpt of Lab Med and Pathology [address] [place] [id number] Wine Specialist: Emre Zamora III, M.D. 178 -- REFERENCE VALUE -- <=13 (Fasting) Test Performed by: [facility] Dpt of Lab Med and Pathology [address] [place] [address] Wine Specialist: Emre Zamora III, M.D. Procedures Date Code Description Status 03/22/2018 11723 EKG Tracing & Interpretation Completed 07/19/2017 52653 EKG Tracing & Interpretation Completed 12/28/2016 35697 Holter Monitor Review (24 hr)dr holt & interp only Completed 12/27/2016 70352 ECG Monitor/Recording W/Visual Superimposition Completed Scanning 11/03/2016 78162 ECHO Transthoracic, Real-Time 2D With Doppler And Completed Color Flow 10/26/2016 88312 EKG Tracing & Interpretation Completed 06/09/2016 [id number] Bone Mineral Density Test Completed 06/09/2016 [id number] Mammogram Completed 01/05/2016 05849 EKG Tracing & Interpretation Completed 06/21/2015 38032 ECHO Transthoracic, Real-Time 2D With Doppler And Completed Color Flow 04/27/2015 48972 EKG Tracing & Interpretation Completed 07/21/2014 65379 Holter Monitor Review (24 hr)dr holt & interp only Completed 07/21/2014 45261 ECG Monitor/Recording W/Visual Superimposition Completed Scanning 07/21/2014 06685 Holter Monitoring 24 HR New Completed 05/04/2014 93438 EKG Tracing & Interpretation Completed 03/11/2014 33980963 Mammogram Completed 11/05/2013 80024 Rad Exam; Hip Unilat Completed 11/05/2013 26508 Rad Exam; Hip Unilat Completed 11/05/2013 82158 Rad Shoulder Comp, Min. 2 Views Completed 11/05/2013 09062 Rad Exam; Pelvis Completed 11/05/2013 48529 Inject/Drain Joint/Bursa Small W/O US Completed 09/29/2013 06138 EKG Tracing & Interpretation Completed 02/05/2013 67573 Holter Monitoring 24 HR New Completed 02/05/2013 19183 Holter Monitoring 24 HR New Completed 02/05/2013 91633 EKG Tracing & Interpretation Completed 06/19/2012 87077 Holter Monitoring 24 HR New Completed 05/06/2012 33697 EKG Tracing & Interpretation Completed 05/02/2012 70952 Rad Exam; Hip Unilat Completed 05/02/2012 36152 Rad Exam; Pelvis Completed 01/26/2012 55416474 Mammogram Completed 01/15/2012 17470 Polysomnography Sleep Staging 4+ Parameters W/Cpap Completed 09/13/2011 56802 ECHO Stress Test Incl Perf Contiuous ekg Monitoring Completed W/Phys Superv 09/04/2011 35176 Holter Monitoring 24 HR New Completed 08/25/2011 74874 ECHO Transthoracic, Real-Time 2D With Doppler And Completed Color Flow 08/02/2011 86975 EKG Tracing & Interpretation Completed 07/21/2011 64273 EKG Tracing & Interpretation Completed 06/27/2011 70645 Rad Exam; Pelvis Completed 06/27/2011 28964 Rad Exam; Hip Unilat Completed 05/29/2011 82367 THR Total Hip Replacement Completed 05/29/2011 13205 THR Total Hip Replacement Completed 05/19/2011 72841 EKG, Interpretation Only Completed 08/02/2006 [id number] Bone Mineral Density Test Completed 05/02/2004 [id number] Colonoscopy Completed Encounters Type Date Location Provider Dx Diagnosis Office Visit 03/22/2018 [facility] S. 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 M.D. pain Office Visit 02/07/2017 2:45p Orthopedic Services Trisatn Best M54.5 Low back Of C.M.A. M.D. pain M54.2 Cervicalgia Office Visit 10/26/2016 Nahed Sol S. 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 M54.5 Low back pain M62.838 Other muscle spasm Office Visit 06/06/2016 1:40p [facility] Internal Alfredo Mcdaniel, Z00.00 Encntr for Medicine - [place] [employer] OPERATOR HELPER general adult Rd medical exam w/o abnormal findings R00.2 Palpitations R10.11 Right upper quadrant pain R73.01 Impaired fasting glucose E78.4 Other hyperlipidemia I10 Essential (primary) hypertension G47.33 Obstructive sleep apnea (adult) (pediatric) Z12.31 Encntr screen mammogram for malignant neoplasm of breast M81.0 Age-related osteoporosis w/o current pathological fracture Office Visit 01/05/2016 [facility] Sweta S. 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 right hip Z96.641 Presence of right artificial hip joint Office Visit 05/05/2015 11:00a [facility] Internal Alfredo Mcdaniel, Z00.00 Encntr for Medicine - [place] SHOT CORE DRILL OPERATOR HELPER general adult Rd medical exam w/o abnormal findings E78.4 Other hyperlipidemia I10 Essential (primary) hypertension G47.33 Obstructive sleep apnea (adult) (pediatric) Office Visit 04/27/2015 Georgette Sol S. 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 414.01 Coronary Atherosclerosis [place] 794.31 Electrocardiogram (ECG) (EKG) Abnormal 272.4 Hyperlipidemia Other Unspec Office Visit 03/17/2014 [facility] Internal Sánchez Tobin, SHOT CORE DRILL OPERATOR HELPER 300.00 Anxiety State 11:00a Medicine - Unspec [place] Office Visit 03/06/2014 Pulmonology And Kaitlyn 327.23 Obstructive Sleep 1:30p Sleep Services Of RADHA Zamora, RN, Apnea Adult & [facility] CHILD HEALTH ASSOCIATE-BC Pediatric Office Visit 03/03/2014 [facility] Internal Doug Nguyễn 458.0 Hypotension 10:50a Gina Taylor M.D.,[facility] Orthostatic [place] 300.00 Anxiety State Unspec Office Visit 02/19/2014 11:10a [facility] Internal Doug Nguyễn 088.81 Lyme Disease Gina Taylor M.D.,[facility] [place] 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 414.01 Coronary 1:20p Cardiology Walt Hoffman M.D. [place] 401.1 Hypertension Benign 785.1 Palpitations 794.31 Electrocardiogram (ECG) (EKG) Abnormal 272.4 Hyperlipidemia Other Unspec Office Visit 07/03/2013 [facility] Internal Doug Nguyễn 414.01 Coronary 10:10a Gina Taylor M.D.,[facility] Atherosclerosis [place] 401.1 Hypertension Benign 790.21 Impaired Fasting Glucose 724.1 Pain Thoracic Spine Office Visit 03/28/2013 10:20a Rheumatology Luke Barrera, 338.4 Chronic Pain Services Of [facility] CHILD HEALTH ASSOCIATE Syndrome 795.79 Immunological Findings Nonspec Other & Unspec Office Visit 02/05/2013 [facility] Quoneida S. 414.01 Coronary 11:00a Cardiology Monika Hoffman Atherosclerosis [place] 401.1 Hypertension Benign 785.1 Palpitations 794.31 Electrocardiogram (ECG) (EKG) Abnormal 272.4 Hyperlipidemia Other Unspec Office Visit 12/30/2012 12:10p [facility] Internal Doug Nguyễn 472.1 Pharyngitis Gina Taylor M.D.,[facility] Chronic [place] 788.41 Urinary Frequency Office Visit 11/08/2012 3:00p [facility] Internal Vikki Chin, 780.4 Dizziness & Medicine - N.P. Giddiness [place] V72.31 Routine Director Enterprise Sales Examination Office Visit 09/06/2012 10:00a Rheumatology Luke Floydk, 338.4 Chronic Pain Services Of [facility] CHILD HEALTH ASSOCIATE Syndrome 795.79 Immunological Findings Nonspec Other & Unspec Office Visit 09/05/2012 10:30a [facility] Internal Doug Nguyễn V70.0 Examination Gina Taylor M.D.,[facility] Routine AT Health Care Facility 414.01 Coronary Atherosclerosis [place] 401.1 Hypertension Benign Office Visit 06/19/2012 11:00a [facility] Nurse Visit 401.1 Hypertension Benign cc 785.1 Palpitations Office Visit 05/06/2012 [facility] Sweta S. 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 Unspec Genlzd Or Localized Pelvic & Thigh Office Visit 02/19/2012 Rheumatology Valeriano 338.4 Chronic Pain 10:20a Services Of Addison Valdes M.D. Syndrome 795.79 Immunological Findings Nonspec Other & Unspec 715.95 Osteoarthrosis Unspec Genlzd Or Localized Pelvic & Thigh Office Visit 02/15/2012 10:10a [facility] Internal Doug Nguyễn 780.4 Dizziness & Gina Taylor M.D.,[facility] Giddiness [place] 414.01 Coronary Atherosclerosis [place] V04.81 Need For Prophylactic Vaccination & Inoculation/Influenza Office Visit 11/01/2011 10:00a [facility] Internal Doug Nguyễn 401.1 Hypertension Gina Taylor M.D.,[facility] Benign [place] 780.4 Dizziness & Giddiness 414.01 Coronary Atherosclerosis [place] 790.21 Impaired Fasting Glucose Office Visit 10/20/2011 Rheumatology Valeriano Valdes 795.79 Immunological 10:40a Services Of Addison Frank Findings Nonspec Other & Unspec 726.5 Enthesopathy Of Hip Region 338.4 Chronic Pain Syndrome Office Visit 10/02/2011 [facility] Sweta S. 414.01 Coronary 2:00p Cardiology Monika Hoffman Atherosclerosis [place] 401.1 Hypertension Benign 272.0 Hypercholesterolemia Pure Office Visit 10/02/2011 [facility] Internal Doug Nguyễn 414.01 Coronary 10:50a Walt Claudio M.D.,FAC Office Visit 09/15/2011 Prattsusan Sol SLilo 794.31 Electrocardiogram 3:20p Cardiology Yasmin, (ECG) (EKG) Abnormal Monika 401.1 Hypertension Benign 780.4 Dizziness & Giddiness 785.1 Palpitations Office Visit 09/13/2011 Orthopedic Tristan 715.95 Osteoarthrosis 10:00a Services Of Monika Best Unspec Genlzd Or C.M.A. Localized Pelvic & Thigh Office Visit 08/25/2011 Manager Clinical Informatics Internal Vikki 401.1 Hypertension Benign 11:00a Medicine Krystin Chin, N.PLilo Kilpatrick 300.09 Anxiety States Other Office Visit 08/02/2011 2:40p [facility] Sweta Malagon 780.4 Dizziness & Monika Hoffman Giddiness 401.1 Hypertension Benign 785.1 Palpitations 794.31 Electrocardiogram (ECG) (EKG) Abnormal Office Visit 07/25/2011 2:45p [facility] Internal Vikki Giuseppe, 780.4 Dizziness & Medicine - N.P. Giddiness [place] 401.1 Hypertension Benign 785.1 Palpitations 789.00 Pain Abdominal Unspec Site Office Visit 07/21/2011 10:30a [facility] Internal Vikki Giuseppe, 785.1 Palpitations Medicine - N.P. 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 Localized Pelvic & Thigh Office Visit 04/05/2011 Orthopedic Tristan 715.95 Osteoarthrosis 1:30p Services Of Monika Best Unspec Genlzd Or C.M.A. Localized Pelvic & Thigh Office Visit 03/27/2011 DO Not Use Manager Clinical Informatics Doug Nguyễn V70.0 Examination General 9:10a AT [facility] Claudia, Medical Routine AT Will,[facility] Health Care Facility V76.10 Screening For Malignant Neoplasm Breast 715.15 Osteoarthrosis Localized Prim Pelvic & Thigh 272.0 Hypercholesterolemia Pure v04.81 Need For Prophylactic Vaccination & Inoculation/Influenza v04.89 Need For Prophylactic Vaccination & Inoculation Other Virus V05.8 Single Disease Spec Other Vaccination & Inoculation Office Visit 03/13/2011 DO Not Use Manager Clinical Informatics Miah 077.8 Conjunctivitis Viral 2:20p AT Fay Lyon M.D. Other Office Visit 03/06/2011 DO Not Use Manager Clinical Informatics Celina Martin, 372.11 Conjunctivitis 2:20p AT Fay Frank Simple Chronic 373.00 Blepharitis Unspec Office Visit 02/03/2011 1:40p Rheumatology Valeriano Valdes 338.4 Chronic Pain Services Of Addison Frank Syndrome 720.0 Spondylitis Ankylosing Office Visit 01/17/2011 8:30a DO Not Use Manager Clinical Informatics Doug Nguyễn 535.00 Gastritis Acute AT Fay Taylor M.D.,[facility] W/O Hemorrhage Office Visit 12/16/2010 10:30a DO Not Use Manager Clinical Informatics Doug Nguyễn 466.0 Bronchitis Acute AT Fay Taylor M.D.,[facility] 300.00 Anxiety State Unspec Office Visit 11/09/2010 11:40a DO Not Use Manager Clinical Informatics Doug Nguyễn 780.4 Dizziness & AT Fay Taylor M.D.,[facility] Giddiness 300.00 Anxiety State Unspec Office Visit 10/13/2010 10:00a Rheumatology Valeriano Valdes, 338.4 Chronic Pain Services Of Addison Frank Syndrome Office Visit 2010 2:40p Rheumatology Valeriano Valdes 720.0 Spondylitis Services Of Addison Frank Ankylosing 338.4 Chronic Pain Syndrome Office Visit 06/20/2010 9:40a DO Not Use Manager Clinical Informatics Miah Lyon, 461.9 Sinusitis Acute AT [facility] Monika Unspec Office Visit 04/21/2010 11:00a DO Not Use Manager Clinical Informatics Doug Nguyễn 720.0 Spondylitis AT [facility] Monika Taylor,FACP Ankylosing V04.81 Need For Prophylactic Vaccination & Inoculation/Influenza 272.2 Hyperlipidemia Mixed 401.1 Hypertension Benign Office Visit 10/20/2009 9:40a DO Not Use Manager Clinical Informatics Doug Nguyễn 720.0 Spondylitis AT [facility] Monika Taylor,FACP Ankylosing 272.2 Hyperlipidemia Mixed 790.21 Impaired Fasting Glucose 401.1 Hypertension Benign Office Visit 07/01/2009 DO Not Use Manager Clinical Informatics Nisa Cordova PA 272.2 Hyperlipidemia Mixed 9:30a AT [facility] 790.21 Impaired Fasting Glucose 401.1 Hypertension Benign Office Visit 04/30/2009 DO Not Use Manager Clinical Informatics Nisa Cordova PA 272.2 Hyperlipidemia Mixed 10:00a AT [facility] 729.1 Myalgia & Myositis Unspec Office 03/31/2009 DO Not Use Nisa Cordova PA 272.2 Hyperlipidemia Visit 10:30a Manager Clinical Informatics AT [facility] Office 02/16/2009 DO Not Use Doug Taylor, 473.9 Sinusitis Chronic Visit 3:40p Manager Clinical Informatics AT Will,[facility] Unspec [facility] Office 01/22/2009 DO Not Use Nisa Cordova PA 272.2 Hyperlipidemia Visit 9:00a Manager Clinical Informatics AT [facility] Office 12/25/2008 DO Not Use Nisa Cordova PA 272.2 Hyperlipidemia Visit 9:00a Manager Clinical Informatics AT [facility] 729.1 Myalgia & Myositis Unspec Office Visit 11/24/2008 8:30a DO Not Use Manager Clinical Informatics Nisa Cordova PA 780.4 Dizziness & AT [facility] Giddiness 272.2 Hyperlipidemia Mixed Office Visit 11/19/2008 11:20a DO Not Use Manager Clinical Informatics Francis, 251.2 Hypoglycemia Other AT [facility] Monika Lozano Unspec Office Visit 11/17/2008 2:30p DO Not Use Manager Clinical Informatics Nisa Cordova PA 729.1 Myalgia & Myositis AT [facility] Unspec 272.2 Hyperlipidemia Mixed Office Visit 09/15/2008 9:40a DO Not Use Manager Clinical Informatics AT Doug Taylor, 272.7 Lipidoses [place] Frank,FACP 729.1 Myalgia & Myositis Unspec Office Visit 07/28/2008 9:20a DO Not Use Manager Clinical Informatics Doug Nguyễn 719.45 Pain Joint AT Fay Taylor M.D.,FACP Pelvic Region & Thigh 401.1 Hypertension Benign 729.1 Myalgia & Myositis Unspec 272.2 Hyperlipidemia Mixed Office Visit 06/03/2008 9:00a DO Not Use Manager Clinical Informatics Thananart, 401.1 Hypertension AT [place] M.D. Benign 300.09 Anxiety States Other Office Visit 04/28/2008 11:00a DO Not Use Manager Clinical Informatics Doug Nguyễn 780.4 Dizziness & AT Fay Taylor M.D.,FACP Giddiness 401.1 Hypertension Benign V04.81 Need For Prophylactic Vaccination & Inoculation/Influenza v04.81 Need For Prophylactic Vaccination & Inoculation/Influenza Office Visit 02/24/2008 11:18a DO Not Use Manager Clinical Informatics Doug Nguyễn 780.4 Dizziness & AT Fay Taylor M.D.,FACP Giddiness 300.09 Anxiety States Other 401.1 Hypertension Benign Office Visit 12/25/2007 9:20a DO Not Use Manager Clinical Informatics Doug Nguyễn 780.4 Dizziness & AT Fay Taylor M.D.,FACP Giddiness 327.23 Obstructive Sleep Apnea Adult & Pediatric Office Visit 10/25/2007 9:20a DO Not Use Manager Clinical Informatics Doug Nguyễn 780.4 Dizziness & AT Fay Taylor M.D.,FACP Giddiness 530.5 Esophageal Dyskinesia 327.23 Obstructive Sleep Apnea Adult & Pediatric Office Visit 09/16/2007 4:00p DO Not Use Manager Clinical Informatics Doug Nguyễn 447.6 Arteritis Unspec AT Fay Taylor M.D.,FACP 401.1 Hypertension Benign 780.4 Dizziness & Giddiness 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 Unspec 715.15 Osteoarthrosis Localized Prim Pelvic & Thigh Office Visit 07/15/2007 10:20a DO Not Use Manager Clinical Informatics Doug Nguyễn 780.4 Dizziness & AT Fay Taylor M.D.,FACP Giddiness 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 327.23 Obstructive Sleep Apnea Adult & Pediatric 401.1 Hypertension Benign Office Visit 06/12/2007 9:20a DO Not Use [facility] Doug Nguyễn 327.23 Obstructive Sleep AT Fay Taylor M.D.,[facility] Apnea Adult & Pediatric 401.1 Hypertension Benign 272.2 Hyperlipidemia Mixed 780.4 Dizziness & Giddiness 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
--- OUTSIDE RECORDS SUMMARY | 2018-07-17 11:26 | XMS REPORT | Continuity of Care Document ---
:1950 External Reference #:[id number] Author Name Keyonna Collins Care Team Providers Name Role Phone Doug Taylor MD Primary Care Physician Unavailable Payers Type Date Identification Numbers Payment Provider Subscriber Effective: Policy Number: [id number] [employer]ets Scooter Quintanilla 2016 PayID: [id number] [address] [address] [place] [address] Effective: 2013 Policy Number: [id number] [employer] Scooter Quintanilla Expires: 2016 PayID: [id number] [address] [address] [place] [address] Effective: 2012 Policy Number: [id number] BS Facets Estevan Miller Expires: 2013 PayID: [id number] [address] [address] [place] [address] Effective: 2013 Policy Number: [id number] Medicare Estevan Miller PayID: [id number] [address] [place] [address] Advance Directives Description No Information Available Problems Date Description Provider Status Onset: 03/19/2018 Familial hypercholesterolemia Eliseo Anthony M.D., FACP Onset: 06/12/2007 Obstructive sleep apnea syndrome Eliseo Anthony M.D., FACP Onset: 04/27/2015 Essential hypertension Eliseo Schuler M.D. Onset: 09/29/2013 Hyperlipidemia Eliseo Schuler M.D. Onset: 11/01/2011 Impaired fasting glycaemia Eliseo Anthony M.D.,FACP Onset: 10/02/2011 Coronary arteriosclerosis Eliseo Anthony M.D.,FACP Onset: 02/19/2012 Chronic pain syndrome Valeriano Valdes M.D. Active Onset: 02/19/2012 Degenerative joint disease of pelvis Valeriano Valdes M.D. Active Onset: 03/27/2011 Localized, primary osteoarthritis of Doug Taylor Active the pelvic region and thigh Ada.Delma,FACP Onset: 07/21/2011 Anxiety state Vikki Chin N.Dodie Active Onset: 05/19/2011 Electrocardiogram abnormal Eliseo Anthony M.D.,FACP Onset: 02/19/2012 Immunological Findings Nonspecified Valeriano Valdes M.D. Active Other & Unspecified Onset: 06/12/2007 Dizziness and giddiness Eliseo Anthony M.D.,FACP Onset: 05/06/2015 Prosthetic arthroplasty of the hip Tristan Best M.D. 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 Active Onset: 02/07/2017 Neck pain Tristan Best M.D. Active Onset: 09/16/2007 Arteritis Doug Taylor M.D.,FACP Inactive Inactive: 09/05/2012 Onset: 03/27/2011 Pure hypercholesterolemia Doug Taylor M.D.,FACP Inactive Inactive: 09/05/2012 Onset: 07/21/2011 Palpitations Vikki Chin N.P. 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[employer] [place] Tobacco Use Start: Unknown Never Smoked Cigarettes ETOH Use 03/22/2018 Denies alcohol use Recreational Drug Use Denies Drug Use Tobacco Use Start: Unknown Patient has never smoked Smoking Status Reviewed: 06/24/18 Patient has never smoked Exercise Type/Frequency Exercises rarely Allergies, Adverse Reactions, Alerts Date Description Reaction Status Severity Comments 09/15/2008 Lovaza Urticaria Active 2010 Avelox Urticaria Active Severe 10/02/2011 Lisinopril Active anxiety 04/27/2015 Latex Active itchiness 06/06/2016 Rocephin itchy, tingling overall Active Mild 06/12/2007 NKDA Inactive Medications Medication Date Status Form Strength Qnty SIG Indications Ordering Provider Bactrim DS Hx Tablets 800-160mg 14tabs one by N39.0 Lizet 019 - mouth Varn, N.P. twice a 019 day for 7 days Rosuvastatin Active Tablets 40mg 30tabs take one E78.4 Ulises Triana Calcium 019 tablet D. [place], by mouth M.DLilo,FACP every day Praluent Active Solution 75mg/ml 2units sc E78.2 Doug 018 Pen-Inject x0licta D. Claudia, (not M.D.,FACP taking) I25.10 Losartan 03/19/2018 Active Tablets 50mg 90tabs 1 by mouth I10 Ulises Nguyễn Potassium every day [place], Started on M.D.,FACP 03/20/18 Tylenol 12/31/2017 Active Tablets 325mg 90tabs take 2 tabs Doug Nguyễn as needed Claudia, every 6 M.D.,FACP hours for pain/fever Amoxicillin 09/26/2016 Active Capsules 500mg 8caps 4 tabs 1 Tristan hour before Nasir, dental work M.Delma Aspirin 09/05/[address] 81mg 30tabs [...] Active Capsules 100mg 2 po qd Unknown Cyclobenzaprine HCL 04/04/2017 - Hx Tablets 5mg 10 one to two M5 Tristan 03/21/2018 ta tabs by 4az Santos mouth twice 5 M.D. a day as needed for spasms Neurontin 02/12/2017 - Hx Capsules 300mg 30 1 by mouth Chelsea 03/21/2018 ca every night judit Best at bedtime M.D. (pt has not taken, prn) VSL#3 05/05/2015 - Hx Capsules 450Bill 2 caps bid Other 07/18/2017 iion Ordering Per Day Provider Coq-10 05/03/2014 - Hx Capsules 100mg 1 tabs Other 01/04/2016 twice a day Ordering Provider Losartan Potassium 03/03/2014 - Hx Tablets 25mg 90 Take One I1 [place] 03/19/2018 ta Tablet By 0 az Lyon Mouth Once M.D. Daily Doxycycline Hyclate 02/19/2014 - Hx Capsules 100mg 60 twice a day 08 [facility] 03/17/2014 ca by mouth 8. D. Claudia, ps 81 M.D.,FACP Lidoderm 07/03/2013 - Hx Patches 5% [address] [facility] 01/29/2014 un topically 4. D. Claudia, it qd for 12 1 M.D.,FACP s hrs Gabapentin 02/15/2012 - Hx Capsules 100mg [address] [facility] 09/05/2012 ca 0. D. [place], ps 4 M.D.,FACP Omeprazole 11/01/2011 - Hx Capsules DR 20mg [address] [facility] 09/29/2013 ca (before 0. D. [place], ps breakfast 11 M.D.,FACP and dinner) prn Welchol 11/01/2011 - Hx Tablets 625mg 18 3 po bid 41 Doug 09/05/2012 0t 4. D. [place], ab 01 M.DLilo,[facility] s Klonopin Wafers 11/01/2011 - Hx Tablets 0.25mg [address] [facility] 09/05/2012 Dispers 0t 0. D. Claudia ab 4 M.D.,[facility] s Hydrochlorothiazide 10/30/2011 - Hx Tablets 12.5mg 90 1 po every [facility] 11/01/2011 ta am D. az Taylor M.Delma,FACP Losartan 10/02/2011 - Hx Tablets 50-12.5 45 take 05/[address] [facility] Potassium/Hydrochlorot 09/29/2013 mg ta tablet 4. John. rony Taylorazide bs every 01 M.DLilo,[facility] morning Lisinopril 08/25/2011 - Hx Tablets 10mg 30 1 tab po qd 40 [facility] 09/26/2011 ta at night 1. az Finley 1 M.D.,[facility] Amoxicillin 08/15/2011 - Hx Capsules 500mg 8c 4 tabs 1 [place] 05/05/2015 ap hour before gil Best dental work MWill Transderm-Scop 07/25/2011 - Hx Patches 72HR 1.5mg 4u apply 1 78 [facility] 11/01/2011 ni patch q3 0. D. Claudia, ts days prn; 4 M.D.,[facility] apply patch behind ear at least 4h before event; do not cut Omeprazole 07/21/2011 - Hx Capsules DR 20mg [address] [facility] 11/01/2011 ca (before 0. D. Claudia, ps breakfast 11 M.D.,FACP and dinner) Align 07/21/2011 - Hx Capsules 4mg [address] [facility] 11/01/2011 ca 7. D. Claudia ps 3 M.D.,[facility] Bactrim DS 06/19/2011 - Hx Tablets 800-160 14 1 po bid Chelsea 07/21/2011 mg ta for 7 days az Best M.D. Percocet 05/19/2011 - Hx Tablets 5-325mg 60 1-2 po Chelsea 07/21/2011 ta q4-6h prn az Best pain M.DLilo Coumadin 05/19/2011 - Hx Tablets 2.5mg 50 2 po use as Chelsea 07/21/2011 ta directed az Best M.D. Ultram 04/19/2011 - Hx Tablets 50mg 40 1-2 po bid Tristan 04/21/2011 bree garcian az Best M.D. Garamycin 04/14/2011 - Hx Ointment 0.3% 1u 1/4 inch to 37 Diamond 05/19/2011 ni each eye 4x 2. bernard Rojo per day 11 M.D. 7-10 days Arthrotec 50 03/27/2011 - Hx Tablets 50-200m 60 po bid 71 Doug 04/21/2011 g-mcg az Myers 15 M.D.,FACP Genteal PM 03/06/2011 - Hx Ointment 85-15% 37 [place] 03/27/2011 3. Mario, 00 M.DLilo Garamycin 03/06/2011 - Hx Ointment 0.3% 1u 1/4 inch to 37 [place] 03/27/2011 ni each eye 4x 2. bernard Martin per day 11 M.D. 7-10 days Celebrex [...] prn 53 Doug 03/27/2011 az Myers 00 M.D.,FACP Amoxicillin 12/16/2010 - Hx Tablets 500mg 40 2 tabs po 46 Doug 01/05/2011 ta bid for 10 6. az Finley days 0 M.D.,FACP Verapamil HCL ER 11/09/2010 - Hx Tablets ER 240mg 90 Take 1 41 Ulises Triana 10/02/2011 ta Tablet By 4. az Finley Mouth Every 01 M.D.,FACP Day Lorazepam 11/09/2010 - Hx Tablets 0.5mg 45 1 po tid 78 Doug 03/06/2011 ta prn 0. az Fniley 4 M.D.,FACP Sertraline HCL 11/09/2010 - Hx Tablets 25mg 30 1 po qam 30 Doug 12/16/2010 ta 0az Sal 00 M.D.,[facility] Nabumetone 10/13/2010 - Hx Tablets 750mg 60 1 po bid Valeriano 02/03/2011 bree Valdes M.D. bs Indomethacin 2010 - Hx Capsules 25mg 90 1 po tid Valeriano 10/13/2010 ca Monika Valdes ps Avelox 06/20/2010 - Hx Tablets 400mg 10 1 po qd 46 Miah 2010 ta 1. az Lyon 9 M.D. Celebrex 04/21/2010 - Hx Capsules 200mg 30 1 po qd 72 Doug 2010 ca judit Spencer 0 M.DLilo,[facility] Fish Oil 10/20/2009 - Hx Capsules 1000mg 1 po bid 27 Doug 04/21/2010 2Lilo Taylor, 2 M.DLilo,[facility] Verapamil HCL CR 10/20/2009 - Hx Tablets ER 240mg 90 1 po qd 40 Ulises Triana 11/09/2010 ta 1az Sal 1 M.D.,[facility] Crestor 10/20/2009 - Hx Tablets 40mg 90 take one E7 Doug 06/21/2018 ta tablet by 8. az Finley mouth every 4 M.D.,[facility] day Lipator 07/01/2009 - Hx 40mg 30 1 po q 27 Doug 10/20/2009 un evening 2. Delma Taylor it 2 M.D.,[facility] s Amoxicillin 02/16/2009 - Hx Tablets 500mg 40 2 tabs po 47 Doug 03/31/2009 ta bid for 10 3. az Finley days 9 M.D.,[facility] Vitamin D 11/17/2008 - Hx Tablets 1000Uni 30 qd po Doug 01/29/2014 t az Justice M.D.,[facility] Niaspan 09/15/2008 - Hx Tablets ER 500mg 90 1 po qhs 27 Doug 07/01/2009 ta 2az Sal 7 M.D.,[facility] Lipitor 09/15/2008 - Hx Tablets 20mg 90 qpm po 27 Doug 02/16/2009 ta 2. az Finley 7 M.D.,[facility] Provigil 12/25/2007 - Hx Tablets 100mg 7t 1 po qam 32 Doug 02/24/2008 ab 7. Delma Taylor s 23 M.D.,[facility] Verapamil HCL ER 09/16/2007 - Hx Caps ER 24HR 180mg 90 1 po qd 40 Ulises Triana 10/20/2009 ca 1. Delma Taylor ps 1 M.D.,[facility] Amitriptyline HCL 07/15/2007 - Hx Tablets 10mg 30 1 po qhs 78 Doug 09/16/2007 ta 0. az Finley 4 M.D.,[facility] Celexa 06/12/2007 - Hx Tablets 10mg 1/2 tab PO Doug 06/21/2007 qd Delma Taylor M.D.,[facility] Klonopin Wafers 06/12/2007 - Hx Tablets 0.25mg 12 1 qid 78 Doug 04/21/2010 Dispers 0t 0. ab Malia 4 M.D.,[facility] s Atacand - Hx Tablets 32mg 1 PO qd 40 Doug 09/16/2007 Dmitriy Taylor, 1 Ada.DLilo,[facility] Celexa - Hx Tablets 10mg 45 One And Doug 06/12/2007 ta Half Tab PO az Finley qd M.D.,[facility] Prilosec - Hx Doug 07/01/2009 Delma Taylor M.D.,[facility] Vitamin B12 - Hx 1 qd Unknown [...] - Hx Tablets 5mg 20 1/2-1 tab Doug 05/05/2015 ta po prn az Finley M.D.,FACP Amino Acid - Hx Daily Unknown 05/05/2015 Celebrex - Hx Capsules 200mg 60 take one Doug 05/05/2015 ca capsule by Delma Taylor ps mouth twice M.DLilo,FACP a day as needed D-Ribose - Hx Powder qd prn Unknown 05/05/2015 L-Tryptophan - Hx Capsules 500mg Unknown 05/03/2014 Cortisol [place] - Hx Tablets Unknown 01/29/2014 Truman 3 - Hx Capsules 1000mg 10 1 by mouth Unknown 05/03/2014 0c qd. ap s Alpha Lipoic Acid - Hx Capsules 200mg Unknown 01/29/2014 Celexa - Hx Unknown 01/29/2014 Prozac - Hx Capsules 2.5mg 1 by mouth Unknown 07/06/2014 every day Hydrocortisone - Hx 5.5 mg at 8 Unknown 01/04/2016 am and 2.5 mg at noon Truman 3 - Hx Capsules 1000mg 1 by [...] CPT Code Status Date Vaccine Lot # [id number] Given 12/05/2012 Tdap - Tetanus/Diptheria/Acellular Pertussis [id number] Given 02/15/2012 Fluzone Vaccine [id number] 24342 Given 03/27/2011 Zoster (Zostavax) [id number] [id number] Given 03/27/2011 Influenza Virus 3Yrs & Over [id number] 27990 Given 04/21/2010 Influenza Virus 3Yrs & Over [id number] 66038 Given 04/28/2008 Influenza Virus 3Yrs & Over [id number] Given 04/28/2008 Influenza Virus 3Yrs & Over [id number] Vital Signs Date Vital Result Comment 06/24/2018 2:13pm Height 62 inches 5'2" Weight [...] Date Facility Test Result H/L Range Note Ua Routine 06/24/2018 [facility] Ua Specific [place] 1005 Ua PH 8 Ua Color yellow Ua Appera clear Ua WBC trace Ua Protein negative Ua Glucose negative Ua Ketones negative Ua Bilirubin negative Ua Urobilinogen negative Ua Nitrite negative Ua Occult Blood trace Lipid Profile 06/24/2018 [facility] Triglycerides 144 mg/dL 1 (Trig/Chol/HDL) [address] [place] [address] [phone] Cholesterol 253 mg/dL 2 HDL Cholesterol 48.7 mg/dL 3 LDL Cholesterol 176 mg/dL 4 Basic Metabolic Panel 06/24/2018 [facility] Sodium 141 mmol/L N 135-145 [address] [place] [address] [phone] Potassium 4.3 mmol/L N 3.5-5.0 Chloride 108 mmol/L N 101-111 Co2 Carbon Dioxide 25 mmol/L N 22-32 Anion Gap 8 mmol/L N 2-11 Glucose 110 mg/dL High 70-100 Blood Urea Nitrogen 17 mg/dL N 6-24 Creatinine 0.80 mg/dL N 0.51-0.95 BUN/Creatinine Ratio 21.3 High 8-20 Calcium 9.3 mg/dL N 8.6-10.3 Egfr Non- 71.3 >60 Egfr 86.3 >60 5 Laboratory 03/20/2018 [facility] Aso 200 Abnormal <200 6 test finding 101 (Antistreptolysin IU/mL Iu/[place] [address] O) Titer IU/mL [phone] Lipid Profile 02/15/2018 [facility] Triglycerides 213 7 (Trig/Chol/HD 101 mg/dL L) [place] [address] [phone] Cholesterol 254 mg/dL 8 HDL Cholesterol 51.3 mg/dL 9 LDL Cholesterol 160 mg/dL 10 Basic Metabolic Panel 02/15/2018 [facility] Sodium 143 mmol/L N 135-[address] [place] [address] [phone] Potassium 4.1 mmol/L N 3.5-5.0 Chloride 107 mmol/L N 101-111 Co2 Carbon Dioxide 28 mmol/L N 22-32 Anion Gap 8 mmol/L N 2-11 Glucose 115 mg/dL High 70-100 Blood Urea Nitrogen 16 mg/dL N 6-24 Creatinine 0.72 mg/dL N 0.51-0.95 BUN/Creatinine Ratio 22.2 High 8-20 Calcium 9.5 mg/dL N 8.6-10.3 Egfr Non- 80.6 >60 Egfr 97.5 >60 11 Laboratory 12/08/2016 [facility] Miscellaneous See Comment N [address] [place] [address] [phone] Lyme Western 12/08/2016 [facility] Lyme Disease IgG Negative N Negative Blot [address] [place] [address] [phone] Lyme Disease IgG Bands Present No bands detecte <SEE NOTE> kDa N 13 Lyme Disease IgM Ab WB Negative N Negative Lyme Disease IgM Bands Present No bands detecte <SEE NOTE> kDa N 14 Lyme Disease Interpretation See Comment N 15 Laboratory test 12/08/2016 [facility] C Reactive 1.30 mg/L N < 5.[address] [place] [address] [phone] Cortisol 9.98 g/dL N 17 Thyroxine 9.23 g/mL N 6.09-12.23 Free T4 (Free Thyroxine) 1.03 ng/dL N 0.61-1.12 Hemoglobin A1c (Glyco HGB) 6.0 % High Less than 6.0 18 Aso (Antistreptolysin O) Titer 200 IU/mL IU/mL Abnormal <200 Iu/mL 19 Lyme Disease Serology Negative N Negative 20 Immunoglobulin E (Ige) 3.8 kU/L N <=214 21 Tryptase 6.3 ng/mL N <11.5 22 Dhea Sulfate 71.5 g/dL N <15-157 23 Lipid Profile 12/06/2016 [facility] Triglycerides 208 mg/dL N 24 (Trig/Chol/HDL) [address] [place] [address] [phone] Cholesterol 465 mg/dL N 25 HDL Cholesterol 41.8 mg/dL N 26 LDL Cholesterol 382 mg/dL N 27 Basic Metabolic Panel 12/06/2016 [facility] Sodium 139 mmol/L N 133-[address] [place] [address] [phone] Potassium 4.1 mmol/L N 3.5-5.0 Chloride 107 mmol/L N 101-111 Co2 Carbon Dioxide 22 mmol/L N 22-32 Anion Gap 10 mmol/L N 2-11 Glucose 105 mg/dL High 70-100 Blood Urea Nitrogen 20 mg/dL N 6-24 Creatinine 0.81 mg/dL N 0.51-0.95 BUN/Creatinine Ratio 24.7 High 8-20 Calcium 9.4 mg/dL N 8.6-10.3 Egfr Non- 70.5 N >60 Egfr 90.7 N >60 28 Laboratory test 06/06/2016 [facility] TSH (Thyroid 0.91 mcIU/mL N 0.34-5.[address] Stim Horm) [place] [address] [phone] CBC Auto Diff 06/06/2016 [facility] White Blood 7.4 10^3/uL N 3.5-10.[address] [place] [address] [phone] Red Blood Count 4.93 10^6/uL N 4.0-5.4 [...] Blood Cells % 0 N Laboratory test 06/06/2016 [facility] Free T4 (Free 0.85 ng/dL N 0.61-1.[address] Thyroxine) [place] [address] [phone] Magnesium 2.5 mg/dL N 1.9-2.7 Comp Metabolic Panel 06/06/2016 [facility] Sodium 138 mmol/L N 133-[address] [place] [address] [phone] Potassium 4.2 mmol/L N 3.5-5.0 Chloride 104 [...] 62.6 N >60 Egfr 80.6 N >60 29 Lipid Profile 05/05/2016 [facility] Triglycerides 127 mg/dL N 30 (Trig/Chol/HDL) [address] [place] [address] [phone] Cholesterol 259 mg/dL N 31 HDL Cholesterol 52.3 mg/dL N 32 LDL Cholesterol 181 mg/dL N 33 Laboratory test 05/05/2016 [facility] Glucose 102 mg/dL High 70-100 finding [address] [place] [address] [phone] Basic Metabolic 05/05/2016 [facility] Sodium 138 mmol/L N 133- 145 Panel [address] [place] [address] [phone] Potassium 4.2 mmol/L N 3.5-5.0 Chloride 106 mmol/L N 101-111 Co2 Carbon Dioxide 27 mmol/L N 22-32 Anion Gap 5 mmol/L N 2-11 Blood Urea Nitrogen 20 mg/dL N 6-24 Creatinine 0.82 mg/dL N 0.51-0.95 BUN/Creatinine Ratio 24.4 High 8-20 Calcium 9.4 mg/dL N 8.6-10.3 Egfr Non- 69.7 N >60 Egfr 89.7 N >60 34 Comp Metabolic Panel 06/08/2015 [facility] Sodium 136 mmol/L N 133-145 [address] [place] [address] [phone] Chloride 103 mmol/L N 101-111 Co2 Carbon [...] 65.3 N >60 Egfr 84.0 N >60 35 Potassium 3.8 mmol/L N 3.5-5.0 Anion Gap 7 mmol/L N 2-11 Ast 32 U/L N 13-39 Laboratory test 06/08/2015 [facility] Magnesium 2.2 mg/dL N 1.9-2.[address] [place] [address] [phone] Troponin-I (TnI) 0.00 ng/mL N <0.03 36 TSH (Thyroid Stim Horm) 2.92 ?IU/mL N 0.34-5.60 CBC Auto Diff 06/08/2015 [facility] White Blood 7.3 10^3/uL N 3.5-10.[address] [place] [address] [phone] Red Blood Count 4.59 10^6/uL N 4.0-5.4 [...] N Platelet Count 165 10^3/uL N 150-450 37 Lipid Profile 07/03/2014 [facility] Triglycerides 64 mg/dL N 38 (Trig/Chol/HDL) [address] [place] [address] [phone] Cholesterol 225 mg/dL N 39 HDL Cholesterol 61.8 mg/dL N 40 LDL Cholesterol 150 mg/dL N 41 Comp Metabolic Panel 07/03/2014 [facility] Sodium 139 mmol/L N 133-[address] [place] [address] [phone] Potassium 4.2 mmol/L N 3.5-5.0 Chloride 106 [...] 66.4 N >60 Egfr 85.4 N >60 42 CBC Auto Diff 07/03/2014 [facility] White Blood 6.3 10^3/uL N 4.8-10.[address] [place] [address] [phone] Red Blood Count 4.43 10^6/uL N 4.0-5.4 [...] Cells % 0.1 N Laboratory test 07/03/2014 [facility] Magnesium 2.3 mg/dL N 1.9-2.[address] [place] [address] [phone] Laboratory test 03/20/2014 [facility] Lyme Disease Negative N Negative [address] [place] [address] [phone] CBC Auto Diff 03/20/2014 [facility] White Blood 7.1 10^3/uL N 4.8-10.[address] [place] [address] [phone] Red Blood Count 4.43 10^6/uL N 4.0-5.4 [...] Cells % 0 N Laboratory test 03/20/2014 [facility] Troponin I 0.00 ng/mL N <0.03 44 finding [address] [place] [address] [phone] C Reactive Protein 1.28 mg/L N < 5.00 45 Comp Metabolic Panel 03/20/2014 [facility] Sodium 139 mmol/L N 133-[address] [place] [address] [phone] Potassium 4.1 mmol/L N 3.7-5.6 Chloride 104 [...] 76.6 N >60 Egfr 98.5 N >60 46 Laboratory test 02/25/2014 [facility] Potassium 3.7 mmol/L N 3.7-5.[address] [place] [address] [phone] Ast Redraw 26 U/L N 13-39 CBC Auto Diff 02/25/2014 [facility] White Blood 6.2 10^3/uL N 4.8-10.[address] [place] [address] [phone] Red Blood Count 4.73 10^6/uL N 4.0-5.4 [...] Nucleated Red Blood Cells % 0.1 N Comp Metabolic Panel 02/25/2014 [facility] Sodium 138 mmol/L N 133-[address] [place] [address] [phone] Potassium TNP mmol/L N 3.7-5.6 47 Chloride 104 mmol/L N 101-111 Co2 Carbon Dioxide 25 mmol/L N 22-32 Anion Gap TNP mmol/L N 2-11 48 Glucose 106 mg/dL High 70-100 49 Blood Urea Nitrogen 14 mg/dL N 6-24 50 Creatinine 0.80 mg/dL N 0.51-0.95 51 BUN/Creatinine Ratio 17.5 N 8-20 Calcium 9.9 mg/dL N 8.6-10.3 52 Total Protein 8.3 g/dL N 6.4-8.9 53 Albumin 5.0 g/dL N 3.2-5.2 54 Globulin 3.3 g/dL N 2-4 Albumin/Globulin Ratio 1.5 N 1-3 Total Bilirubin 1.60 mg/dL High 0.2-1.0 55 Alkaline Phosphatase 62 U/L N 34-104 56 Alt 20 U/L N 7-52 57 Ast TNP U/L N 13-39 58 Egfr Non- 72.2 N >60 Egfr 92.9 N >60 59 Laboratory test 02/25/2014 [facility] Troponin I 0.00 ng/mL N <0.03 60 finding [address] [place] [address] [phone] TSH (Thyroid Stimulating Horm) 0.91 IU/mL N 0.34-5.60 C Reactive Protein 1.31 mg/L N < 5.00 61 Lyme Disease Serology Negative N Negative 62 Laboratory test 02/25/2014 [facility] Cortisol 26.00 g/dL N 63 finding [address] [place] [address] [phone] Laboratory test 02/25/2014 [facility] Cortisol 23.62 g/dL N 64 finding [address] [place] [address] [phone] Laboratory test 02/25/2014 [facility] Cortisol 20.02 g/dL N [address] [place] [address] [phone] Laboratory test 02/25/2014 [facility] Cortisol 15.22 g/dL N 66, [address] [place] [address] [phone] Comp Metabolic 06/30/2013 [facility] Sodium 141 mmol/L 133- 145 Panel [address] [place] [address] [phone] Potassium 4.1 mmol/L 3.5-5.0 Chloride 106 mmol/L [...] Egfr Non- 84.5 >60 Egfr 108.7 >60 68 Laboratory 06/30/2013 [facility] Hepatitis C Nonreactive Nonreactive test finding [address] [place] [address] [phone] Lipid Profile 06/30/2013 [facility] Triglycerides 109 mg/dL 40-200 (Trig/Chol/HD 101 [facility] [place]) [place] [address] [phone] Cholesterol 181 mg/dL Less than 200 HDL Cholesterol 52 mg/dL 40-60 69 Cholesterol/HDL Ratio 3.5 Average 1-4.44 LDL Cholesterol 107.2 High Less Than 100 70 Urinalysis W/Microscopic 12/30/2012 [facility] Urine Color Yellow [address] [place] [address] [phone] Urine Appearance Clear Urine Specific [place] 1.013 1.010-1.030 Urine Esterase 3+ Abnormal Negative [...] 2+ None Seen Urine Culture And 12/30/2012 [facility] Urine Culture (SEE NOTE ) [address] [place] [address] [phone] Laboratory test 12/30/2012 [facility] Throat (SEE NOTE) [address] [place] [address] [phone] Laboratory test 11/08/2012 [facility] Genital (SEE NOTE) [address] [place] [address] [phone] Comp Metabolic 09/06/2012 [facility] Sodium 136 mmol/L 133- [address] [place] [address] [phone] Potassium 4.1 mmol/L 3.5-5.0 Chloride 103 mmol/L [...] Egfr Non- 72.4 >60 Egfr 93.2 >60 74 Laboratory test 09/06/2012 [facility] C Reactive < 0.5 Less than finding [address] [facility] Protein mg/dL 0.5 [place] [address] [phone] Laboratory test 06/03/2012 [facility] Magnesium 2.6 mg/dL 1.7 -2.[address] [place] [address] [phone] Lipase 32 U/L 22-51 Troponin I 0 ng/mL 0-0.06 75 TSH (Thyroid Stimulating Horm) 1.94 miu/mL 0.34-5.60 Comp Metabolic Panel 06/03/2012 [facility] Sodium 139 mmol/L 133-[address] [place] [address] [phone] Potassium 3.7 mmol/L 3.5-5.0 Chloride 103 mmol/L [...] Egfr Non- 63.4 >60 Egfr 81.6 >60 76 CBC Auto Diff 06/03/2012 [facility] White Blood 6.5 10^3/uL 4.8-10.[address] [place] [address] [phone] Red Blood Count 4.82 10^6/uL 4.0-5.4 Hemoglobin [...] Cells % 0 Lipid Panel - 02/14/2012 [facility] CPK (Creatine 61 U/L 0- [address] Kinase) [place] [address] [phone] Comp Metabolic 02/14/2012 [facility] [facility] S[facility] 139 135-[address] mmol/[place] [address] [phone] Potassium 4.0 mmol/L 3.5-5.0 Chloride 105 mmol/L 101-111 Co2 (Carbon Dioxide) 26.0 mmol/L 22-32 Anion Gap 8.0 mmol/L 2-11 77 Glucose 98 mg/dL 70-100 BUN 17 mg/dL 6-24 Creatinine 0.9 mg/dL 0.50-1.40 One Over Creatinine 1.11 BUN/Creatinine Ratio 18.9 8-20 Calcium 9.3 mg/dL 8.1-9.9 Total Protein 6.4 GM/DL 6.2-8.1 Albumin 4.0 GM/DL 3.2-5.2 Globulin 2.4 GM/DL 2-4 Albumin/Globulin Ratio 1.7 1-3 Bilirubin Total 1.9 mg/dL High 0.4-1.5 78 Alkaline Phosphatase 54 U/L 30-110 Alt (SGPT) 30 U/L 14-54 Ast (Sgot) 29 U/L 12-42 eGFR Non- 63.4 > 60 eGFR 81.6 > 60 79 Lipid Profile 02/14/2012 [facility] Triglyceride 194 mg/dL 40 -200 (Trig/Chol/HDL) [address] [place] [address] [phone] Cholesterol 221 mg/dL High Less Than 200 80 High Density Lipoprotein 45 mg/dL 40-60 81 Cholesterol/HDL Ratio 4.91 AVERAGE High 1-4.44 Low Density Lipoprotein 137 mg/dL High Less Than 100 82 Lipid Profile 10/24/2011 [facility] Triglyceride 144 mg/dL 40 -200 (Trig/Chol/HDL) [address] [place] [address] [phone] Cholesterol 193 mg/dL Less Than 200 83 High Density Lipoprotein 45 mg/dL 40-60 84 Cholesterol/HDL Ratio 4.29 AVERAGE 1-4.44 Low Density Lipoprotein 119 mg/dL High Less Than 100 85 Comp Metabolic Panel 10/24/2011 [facility] Sodium 138 mmol/L 135-145 [address] [place] [address] [phone] Potassium 4.1 mmol/L 3.5-5.0 Chloride 106 mmol/L 101-111 Co2 (Carbon Dioxide) 27.0 mmol/L 22-32 Anion Gap 5.0 mmol/L 2-11 86 Glucose 109 mg/dL High 70-100 BUN 10 mg/dL 6-24 Creatinine 0.8 mg/dL 0.50-1.40 One Over Creatinine 1.25 BUN/Creatinine Ratio 12.5 8-20 Calcium 9.4 mg/dL 8.1-9.9 Total Protein 6.8 GM/DL 6.2-8.1 Albumin 4.2 GM/DL 3.2-5.2 Globulin 2.6 GM/DL 2-4 Albumin/Globulin Ratio 1.6 1-3 Bilirubin Total 2.2 mg/dL High 0.4-1.5 87 Alkaline Phosphatase 62 U/L 30-110 Alt (SGPT) 27 U/L 14-54 Ast (Sgot) 27 U/L 12-42 eGFR Non- 72.7 > 60 eGFR 93.5 > 60 88 Laboratory test 10/24/2011 [facility] CPK (Creatine 59 U/L 0- [address] Kinase) [place] [address] [phone] CBC Auto Diff 09/24/2011 [facility] White Blood 5.2 CUMM 4.8- 10.[address] [place] [address] [phone] Red Cell Count 4.53 CUMM 4.2-5.4 Hemoglobin [...] Eosinophils 0.1 0-0.6 Abs Basophils 0.1 0-0.2 Comp Metabolic Panel 09/24/2011 [facility] Sodium 140 mmol/L 135-[address] [place] [address] [phone] Potassium 4.0 mmol/L 3.5-5.0 Chloride 106 mmol/L 101-111 Co2 (Carbon Dioxide) 27.0 mmol/L 22-32 Anion Gap 7.0 mmol/L 2-11 89 Glucose 105 mg/dL High 70-100 BUN 14 mg/dL 6-24 Creatinine 0.8 mg/dL 0.50-1.40 One Over Creatinine 1.25 BUN/Creatinine Ratio 17.5 8-20 Calcium 9.4 mg/dL 8.1-9.9 Total Protein 7.4 GM/DL 6.2-8.1 Albumin 4.2 GM/DL 3.2-5.2 Globulin 3.2 GM/DL 2-4 Albumin/Globulin Ratio 1.3 1-3 Bilirubin Total 1.3 mg/dL 0.4-1.5 90 Alkaline Phosphatase 66 U/L 30-110 Alt (SGPT) 26 U/L 14-54 Ast (Sgot) 28 U/L 12-42 eGFR Non- 72.7 > 60 eGFR 93.5 > 60 91 Laboratory test 09/24/2011 [facility] Troponin-I 0 NG/ML 0- 0.06 92 finding [address] [place] [address] [phone] Cath Panel 09/20/2011 [facility] PTT (Aptt) 25.5 SEC 25.1- 38.[address] [place] [address] [phone] CBC With Manual 09/20/2011 [facility] White Blood 6.0 CUMM 4.8-10.8 Diff 101 [facility] [place] [address] [phone] Red Cell Count 4.42 CUMM 4.2-5.4 Hemoglobin [...] 3.60 Anisocytosis SLIGHT Basic Metabolic Panel 09/20/2011 [facility] Sodium 138 mmol/L 135-[address] [place] [address] [phone] Potassium 4.5 mmol/L 3.5-5.0 Chloride 108 mmol/L 101-111 Co2 (Carbon Dioxide) 21.0 mmol/L Low 22-32 Anion Gap 9.0 mmol/L 2-11 93 Glucose 103 mg/dL High 70-100 BUN 14 mg/dL 6-24 Creatinine 0.8 mg/dL 0.50-1.40 One Over Creatinine 1.25 BUN/Creatinine Ratio 17.5 8-20 Calcium 9.4 mg/dL 8.1-9.9 eGFR Non- 72.7 > 60 eGFR 93.5 > 60 94 Protime 09/20/2011 [facility] Inr 0.85 Low 0.88-1.[address] [place] [address] [phone] Protime 10.0 SEC Low 10.3-13.5 96 Clotest 08/21/2011 [facility] M <SEE [address] NOTE> [place] [address] [phone] Laboratory test 07/21/2011 [facility] Magnesium 2.5 mg/dL 1.7 - finding [address] 2.6 [place] [address] [phone] Lipase 32 U/L 22-51 TSH 1.28 MIU/ML 0.34-5.60 Manual Differential 07/21/2011 [facility] Polysegmented 78 % 38-83 [place] [address] [phone] Band Neutrophil 1 % 0-8 Lymphocyte 14 % Low 25-47 Monocyte 6 % 0-13 Basophil 1 % 0-2 Absolute Neutrophil Count 5.0 Anisocytosis SLIGHT CBC Auto Diff 07/21/2011 [facility] White Blood 6.4 CUMM 4.8- 10.[address] [place] [address] [phone] Red Cell Count 4.64 CUMM 4.2-5.4 Hemoglobin 13.4 g/dL 12.0-16.0 Hematocrit 40 % 35-47 Mean Corpuscular Volume 85 um3 79-97 Mean Corpuscular Hemoglob 29 pg 27-31 Mean Corpuscular HGB Cone 34 g/dL 32-36 Redcell Distribution WDTH 16 % High 10.5-15 Platelet Count 180 CUMM 150-450 Mean Platelet Volume 8.0 um3 7.4-10.4 98 Laboratory test 07/21/2011 [facility] PTT (Aptt) 22.3 SEC Low 25.1-38.5 finding [address] [place] [address] [phone] Protime 07/21/2011 [facility] Inr 0.98 0.88-1.13 99 [address] [place] [address] [phone] Protime 11.5 SEC 10.3-13.5 100 Laboratory test 07/21/2011 [facility] Troponin-I 0 NG/ML 0- 0.06 101 finding [address] [place] [address] [phone] Comp Metabolic 07/21/2011 [facility] Sodium 139 mmol/L 135- 145 Panel [address] [place] [address] [phone] Potassium 4.3 mmol/L 3.5-5.0 Chloride 104 mmol/L [...] 93.5 > 60 104 Urine Culture 07/21/2011 [facility] M [address] <SEE NOTE> [place] [address] [phone] Urinalysis 07/21/2011 [facility] Ua Color YELLOW Yellow W/Microscopic [address] [place] [address] [phone] Appearance-Urine CLEAR Clear Specific [place]-Ur 1.013 1.010-1.030 Esterase-Urine 2+ Abnormal Negative Nitrite NEGATIVE Negative Eurykljzlfzz-Ga-BJZ NEGATIVE Negative Protein-Urine TRACE Abnormal Negative PH-Urine 7.0 5-9 Blood-Urine 2+ Abnormal Negative Ketones-Urine NEGATIVE Negative Bilirubin-Ur NEGATIVE Negative Glucose-Urine NEGATIVE Negative WBC-Urine 0-2 0-5 RBC-Urine 0-2 0-2 Epith Cells-Ur RARE None Urine Culture 05/19/2011 [facility] M 106 , [address] <SEE NOTE> [place] [id number] [phone] Type And 05/19/2011 [facility] Patient O NEGATIVE Screen Blood Type (Pre-[place]m) [place] [address] [phone] Antibody Screen NEGATIVE Specimen Discard Date 06/02/11 108 Basic Metabolic Panel 05/19/2011 [facility] Sodium 142 mmol/L 135-[address] [place] [address] [phone] Potassium 4.5 mmol/L 3.5-5.0 Chloride 107 mmol/L 101-111 Co2 (Carbon Dioxide) 26.0 mmol/L 22-32 Anion Gap 9.0 mmol/L 2-11 109 Glucose 113 mg/dL High 70-100 BUN 19 mg/dL 6-24 Creatinine 0.7 mg/dL 0.50-1.40 One Over Creatinine 1.42 BUN/Creatinine Ratio 27.1 High 8-20 Calcium 9.2 mg/dL 8.1-9.9 eGFR Non- 85.1 > 60 eGFR 109.4 > 60 110 Protime 05/19/2011 [facility] Inr 0.88 0.88-1.[address] [place] [address] [phone] Protime 10.3 SEC 10.3-13.5 112 Urinalysis W/Microscopic 05/19/2011 [facility] Ua Color YELLOW Yellow [address] [place] [address] [phone] Appearance-Urine CLEAR Clear Specific [place]-Ur 1.016 1.010-1.030 Esterase-Urine 2+ Abnormal Negative Nitrite NEGATIVE Negative Nxgeoynqucwv-Ta-MVV NEGATIVE Negative Protein-Urine NEGATIVE Negative PH-Urine 6.5 5-9 Blood-Urine 1+ Abnormal Negative Ketones-Urine NEGATIVE Negative Bilirubin-Ur NEGATIVE Negative Glucose-Urine NEGATIVE Negative WBC-Urine 5-10 Abnormal 0-5 RBC-Urine 2-5 0-2 Epith Cells-Ur MANY None Bacteria-Urine TRACE None CBC Auto Diff 05/19/2011 [facility] White Blood 6.5 CUMM 4.8- 10.[address] [place] [address] [phone] Red Cell Count 4.22 CUMM 4.2-5.4 Hemoglobin [...] Eosinophils 0.2 0-0.6 Abs Basophils 0.1 0-0.2 Liver Function 04/07/2011 [facility] Total Protein 7.1 GM/DL 6.2-8.[address] [place] [address] [phone] Albumin 4.3 GM/DL 3.2-5.2 Globulin 2.8 GM/DL 2-4 Albumin/Globulin Ratio 1.5 1-3 Bilirubin Total 1.7 mg/dL High 0.4-1.5 113 Bilirubin Direct 0.2 mg/dL 0.1-0.5 Indirect Bilirubin 1.5 mg/dL High 0.3-1.0 114 Alkaline Phosphatase 69 U/L 30-110 Alt (SGPT) 38 U/L 14-54 Ast (Sgot) 35 U/L 12-42 Lipid Panel - 03/27/2011 [facility] CPK (Creatine 70 U/L 0- [address] Kinase) [place] [address] [phone] Comp Metabolic 03/27/2011 [facility] Sodium 140 135-[address] mmol/[place] [address] [phone] Potassium 4.3 mmol/L 3.5-5.0 Chloride 108 mmol/L 101-111 Co2 (Carbon Dioxide) 27.0 mmol/L 22-32 Anion Gap 5.0 mmol/L 2-11 115 Glucose 103 mg/dL High 70-100 BUN 18 mg/dL 6-24 Creatinine 0.7 mg/dL 0.50-1.40 One Over Creatinine 1.42 BUN/Creatinine Ratio 25.7 High 8-20 Calcium 9.4 mg/dL 8.1-9.9 Total Protein 6.9 GM/DL 6.2-8.1 Albumin 6.8 GM/DL High 3.2-5.2 Globulin 0.1 GM/DL Low 2-4 Albumin/Globulin Ratio 68.0 High 1-3 Bilirubin Total 1.4 mg/dL 0.4-1.5 116 Alkaline Phosphatase 66 U/L 30-110 Alt (SGPT) 29 U/L 14-54 Ast (Sgot) 30 U/L 12-42 eGFR Non- 85.1 > 60 eGFR 109.4 > 60 117 Lipid Profile 03/27/2011 [facility] Triglyceride 145 mg/dL 40 -200 (Trig/Chol/HDL) [address] [place] [address] [phone] Cholesterol 217 mg/dL High Less Than 200 118 High Density Lipoprotein 47 mg/dL 40-60 119 Cholesterol/HDL Ratio 4.62 AVERAGE High 1-4.44 Low Density Lipoprotein 141 mg/dL High Less Than 100 120 Lipid Panel - 01/19/2010 [facility] CPK (Creatine 64 U/L 0- [address] Kinase) [place] [address] [phone] Comp Metabolic 01/19/2010 [facility] Sodium 140 135-[address] mmol/[place] [address] [phone] Potassium 4.4 mmol/L 3.5-5.0 Chloride 106 mmol/L 101-111 Co2 (Carbon Dioxide) 27.0 mmol/L 22-32 Anion Gap 7.0 mmol/L 2-11 121 Glucose 101 mg/dL High 70-100 122 BUN 16 mg/dL 6-24 Creatinine 0.80 mg/dL 0.50-1.40 One Over Creatinine 1.20 BUN/Creatinine Ratio 20.0 8-20 Calcium 9.5 mg/dL 8.1-9.9 123 Total Protein 6.9 GM/DL 6.2-8.1 Albumin 4.2 GM/DL 3.2-5.2 Globulin 2.7 GM/DL 2-4 Albumin/Globulin Ratio 1.6 1-3 Bilirubin Total 1.8 mg/dL High 0.4-1.5 124 Alkaline Phosphatase 54 U/L 30-110 Alt (SGPT) 38 U/L 14-54 Ast (Sgot) 29 U/L 12-42 eGFR Non- 77.8 > 60 eGFR 94.1 > 60 125 Lipid Profile 01/19/2010 [facility] Triglyceride 256 mg/dL High 40-200 (Trig/Chol/HDL) [address] [place] [address] [phone] Cholesterol 233 mg/dL High Less Than 200 126 High Density Lipoprotein 37 mg/dL Low 40-60 127 Cholesterol/HDL Ratio 6.30 AVERAGE High 1-4.44 Low Density Lipoprotein 145 mg/dL High Less Than 100 128 Basic Metabolic Panel 08/26/2009 [facility] Sodium 139 mmol/L 135-[address] [place] [address] [phone] Potassium 4.0 mmol/L 3.5-5.0 Chloride 107 mmol/L 101-111 Co2 (Carbon Dioxide) 27.0 mmol/L 22-32 Anion Gap 5.0 mmol/L 2-11 129 Glucose 105 mg/dL High 70-100 130 BUN 16 mg/dL 6-24 Creatinine 0.80 mg/dL 0.50-1.40 One Over Creatinine 1.20 BUN/Creatinine Ratio 20.0 8-20 Calcium 9.2 mg/dL 8.1-9.9 131 eGFR Non- 77.8 > 60 eGFR 94.1 > 60 132 Laboratory test 08/26/2009 [facility] Erythrocyte Sed 16 MM/HR 0-[address] [place] [address] [phone] Cyclic Citrullinated Pep Igg <15.6 U () 133 CBC With 08/26/2009 [facility] White Blood 4.9 CUMM 4.8-10.8 Electronic Diff [address] [place] [address] [phone] Red Cell Count 3.87 CUMM Low 4.2-5.4 [...] Eosinophils 0.2 0-0.6 Abs Basophils 0.1 0-0.2 Lipid Profile 08/26/2009 [facility] Triglyceride 152 mg/dL 40 -200 (Trig/Chol/HDL) [address] [place] [address] [phone] Cholesterol 264 mg/dL High Less Than 200 134 High Density Lipoprotein 42 mg/dL 40-60 135 Cholesterol/HDL Ratio 6.29 AVERAGE High 1-4.44 Low Density Lipoprotein 192 mg/dL High Less Than 100 136 Laboratory test 08/26/2009 [facility] CPK (Creatine 89 U/L 0- [address] Kinase) [place] [address] [phone] C Reactive Protein < 0.5 mg/dL Less Than 0.5 Liver Function 08/26/2009 [facility] Total Protein 6.8 GM/DL 6.2-8.1 Panel [address] [place] [address] [phone] Albumin 4.0 GM/DL 3.2-5.2 Globulin 2.8 GM/DL 2-4 Albumin/Globulin Ratio 1.4 1-3 Bilirubin Total 1.5 mg/dL 0.4-1.5 137 Bilirubin Direct 0.2 mg/dL 0.1-0.5 Indirect Bilirubin 1.3 mg/dL High 0.1-0.75 Alkaline Phosphatase 89 U/L 30-110 Alt (SGPT) 25 U/L 14-54 Ast (Sgot) 28 U/L 12- Laboratory 04/30/2009 [facility] SM(Ruth) Igg <0.2 U () 138 test finding [facility] [place] [address] [phone] Ssa/SSB 04/30/2009 [facility] [place] [address] [phone] SSB NEGATIVE Negative Laboratory test 04/30/2009 [facility] Rheumatoid < 20.0 Less Than finding [facility] Factor IU/mL 20 [place] [address] [phone] Hla B27 Positive () 139 Liver Function 04/30/2009 [facility] Total Protein 7.4 GM/DL 6.2-8.1 Panel [address] [place] [address] [phone] Albumin 4.2 GM/DL 3.6-5.4 Globulin 3.2 GM/DL 2-4 Albumin/Globulin Ratio 1.3 1-3 Bilirubin Total 1.5 mg/dL 0.4-1.5 140 Bilirubin Direct 0.2 mg/dL 0.1-0.5 Indirect Bilirubin 1.3 mg/dL High 0.1-0.75 Alkaline Phosphatase 85 U/L 30-110 Alt (SGPT) 21 U/L 14-54 Ast (Sgot) 25 U/L 12- Lipid Profile 04/30/2009 [facility] Triglyceride 207 mg/dL High 40-200 (Trig/Chol/HDL) [address] [place] [address] [phone] Cholesterol 356 mg/dL High Less Than 200 141 High Density Lipoprotein 47 mg/dL 40-60 142 Cholesterol/HDL Ratio 7.57 AVERAGE High 1-4.44 Low Density Lipoprotein 268 mg/dL High Less Than 100 143 Laboratory test 04/30/2009 [facility] CPK (Creatine 64 U/L 0- [address] Kinase) [place] [address] [phone] Laboratory test 03/30/2009 [facility] CPK (Creatine 72 U/L 0- [address] Kinase) [place] [address] [phone] Lipid Profile 03/30/2009 [facility] Triglyceride 394 High 40- 200 (Trig/Chol/HDL) [address] mg/[place] [address] [phone] Cholesterol 485 mg/dL High Less Than 200 144 High Density Lipoprotein 37 mg/dL Low 40-60 145 Cholesterol/HDL Ratio 13.11 AVERAGE High 1-4.44 Low Density Lipoprotein 369 mg/dL High Less Than 100 146 Liver Function 03/30/2009 [facility] Total Protein 6.7 GM/DL 6.2-8.[address] [place] [address] [phone] Albumin 3.9 GM/DL 3.6-5.4 Globulin 2.8 GM/DL 2-4 Albumin/Globulin Ratio 1.4 1-3 Bilirubin Total 1.3 mg/dL 0.4-1.5 147 Bilirubin Direct 0.1 mg/dL 0.1-0.5 Indirect Bilirubin 1.2 mg/dL High 0.1-0.75 Alkaline Phosphatase 85 U/L 30-110 Alt (SGPT) 20 U/L 14-54 Ast (Sgot) 24 U/L 12-42 Lipid Profile 12/23/2008 [facility] Triglyceride 322 High 40- 200 148 (Trig/Chol/HDL) [address] mg/[place] [address] [phone] Cholesterol 446 mg/dL High Less Than 200 149 High Density Lipoprotein 35 mg/dL Low 40-60 150 Cholesterol/HDL Ratio 12.74 AVERAGE High 1-4.44 Low Density Lipoprotein 347 mg/dL High Less Than 100 151 Laboratory test 11/20/2008 [facility] 2HR Glucose 92 mg/dL 152, 153 finding [address] [place] [address] [phone] Laboratory test 11/20/2008 [facility] Hemoglobin A1c 5.9 % < 6.0 154 finding [address] [place] [address] [phone] Fasting Glucose 87 mg/dL 70-110 1HR Glucose 110 mg/dL 155 Fasting Urine Glucose (SEE NOTE) Negative 156 Laboratory test 11/18/2008 [facility] TSH 1.45 0.34-5.60 finding 101 [facility] MIU/[place] [address] [phone] Thyroxine Free 11/18/2008 [facility] Free Thyroxine 0.90 NG/ML 0.61-1.24 157 [address] [place] [address] [phone] Lipid Profile 11/18/2008 [facility] Triglyceride 153 mg/dL 40 -200 (Trig/Chol/HDL) [address] [place] [address] [phone] Cholesterol 247 mg/dL High Less Than 200 158 High Density Lipoprotein 40 mg/dL 40-60 159 Cholesterol/HDL Ratio 6.18 AVERAGE High 1-4.44 Low Density Lipoprotein 176 mg/dL High Less Than 100 160 Liver Function 11/18/2008 [facility] Total Protein 7.3 GM/DL 6.2-8.1 Panel [address] [place] [address] [phone] Albumin 4.2 GM/DL 3.6-5.4 Globulin 3.1 GM/DL 2-4 Albumin/Globulin Ratio 1.4 1-3 Bilirubin Total 1.8 mg/dL High 0.4-1.5 161 Bilirubin Direct 0.1 mg/dL 0.1-0.5 Indirect Bilirubin 1.7 mg/dL High 0.1-0.75 Alkaline Phosphatase 77 U/L 30-110 Alt (SGPT) 20 U/L 14-54 Ast (Sgot) 21 U/L 12-42 Laboratory test 11/18/2008 [facility] CPK (Creatine 47 U/L 0- 170 finding [address] [facility] Kinase) [place] [address] [phone] Lyme Disease Serology Negative Negative 162 Lipid Profile 09/14/2008 [facility] Triglyceride 264 mg/dL High 40-200 (Trig/Chol/HDL) [address] [place] [address] [phone] Cholesterol 480 mg/dL High Less Than 200 163 High Density Lipoprotein 33 mg/dL Low 40-60 164 Cholesterol/HDL Ratio 14.55 AVERAGE High 1-4.44 Low Density Lipoprotein 394 mg/dL High Less Than 100 165 Laboratory test 09/14/2008 [facility] Glucose 95 mg/dL 70- 100 166 finding [address] [place], [place] [address] [phone] Lipid Profile 07/28/2008 [facility] Triglyceride 578 mg/dL High 40-200 167 (Trig/Chol/HDL) [address] [place], [place] [address] [phone] Cholesterol 524 mg/dL High Less Than 200 168 High Density Lipoprotein 32 mg/dL Low 40-60 169 Cholesterol/HDL Ratio 16.38 AVERAGE High 1-4.44 Low Density Lipoprotein (SEE NOTE) mg/dL Less Than 100 170 Laboratory test 07/28/2008 [facility] Glucose 106 mg/dL High 70-100 171 finding [address] [place], [place] [id number] [phone] Ua Stat 01/15/2008 [facility] Ua Color YELLOW [address] [place] [address] [phone] Appearance-Urine CLEAR Specific [place]-Ur 1.009 Low 1.010-1.030 Esterase-Urine NEGATIVE Negative Nitrite NEGATIVE Negative Zxpnqvnucoai-Zm-MZL NEGATIVE Negative Protein-Urine NEGATIVE Negative PH-Urine 8.0 5-9 Blood-Urine 1+ Abnormal Negative Ketones-Urine NEGATIVE Negative Bilirubin-Ur NEGATIVE Negative Glucose-Urine NEGATIVE Negative Urinalysis W/Microscopic Stat 01/15/2008 [facility] Ua Color YELLOW [address] [place] [address] [phone] Appearance-Urine CLEAR Specific [place]-Ur 1.009 Low 1.010-1.030 Esterase-Urine NEGATIVE Negative Nitrite NEGATIVE Negative Ydkbebqtobre-Nd-KVD NEGATIVE Negative Protein-Urine NEGATIVE Negative PH-Urine 8.0 5-9 Blood-Urine 1+ Abnormal Negative Ketones-Urine NEGATIVE Negative Bilirubin-Ur NEGATIVE Negative Glucose-Urine NEGATIVE Negative WBC-Urine 1-5 0-5 RBC-Urine 15-20 Abnormal 0-2 Mucus Urine MODERATE Epith Cells-Ur MODERATE Bacteria-Urine 2+ Amorphous Sed-U 1+ CBC With 01/15/2008 [facility] White Blood 14.2 CUMM High 4.8- 10.8 Manual Diff [address] [place] [address] [phone] Red Cell Count 4.66 CUMM 4.2-5.4 Hemoglobin [...] Absolute Neutrophil Count 12.0 RBC Morphology NORMAL Comp Metabolic Panel 01/15/2008 [facility] Sodium 139 mmol/L 135-[address] [place] [address] [phone] Potassium 3.8 mmol/L 3.5-5.0 Chloride 106 mmol/L 101-111 Co2 (Carbon Dioxide) 24.0 mmol/L 22-32 Anion Gap 9.0 mmol/L 2-11 172 Glucose 133 mg/dL High 70-100 173 BUN 16 mg/dL 6-24 Creatinine 0.8 mg/dL 0.5-1.4 One Over Creatinine 1.25 BUN/Creatinine Ratio 20.0 8-20 Calcium 9.7 mg/dL 8.1-9.9 174 Total Protein 8.2 GM/DL High 6.2-8.1 Albumin 4.6 GM/DL 3.6-5.4 Globulin 3.6 GM/DL 2-4 Albumin/Globulin Ratio 1.3 1-3 Bilirubin Total 1.2 mg/dL 0.4-1.5 Alkaline Phosphatase 94 U/L 30-110 Alt (SGPT) 25 U/L 14-54 Ast (Sgot) 27 U/L 12-42 Laboratory test finding 01/15/2008 [facility] Amylase 53 U/L 30-[address] [place] [address] [phone] Lipase 23 U/L 22-51 Laboratory test 11/12/2007 [facility] Ige 7.9 kU/L () [address] [place] [address] [phone] CBC With Manual 11/12/2007 [facility] White Blood 5.9 CUMM 4.8-10.[address] [place] [address] [phone] Red Cell Count 4.59 CUMM 4.2-5.4 Hemoglobin [...] Count 2.9 Anisocytosis SLIGHT Laboratory test 11/12/2007 [facility] Vitamin B12 385 pg/mL 180-[address] [place] [address] [phone] Homocysteine 9 umol/L () 176 Laboratory test 09/17/2007 [facility] Erythrocyte Sed 23 MM/HR 0-[address] [place] [address] [phone] CPK (Creatine Kinase) 60 U/L 0-170 C Reactive Protein < 0.5 mg/dL Less Than 0.5 Vitamin B12 253 pg/mL 180-914 TSH 1.33 MIU/ML 0.34-5.60 Laboratory test 06/12/2007 [facility] Antinuclear AB NEGATIVE Negative finding [address] [place] [address] [phone] CBC With 06/12/2007 [facility] White Blood 5.9 CUMM 4.8-10.8 Electronic Diff [address] [place] [address] [phone] Abs Basophils 0 0-0.2 Abs Eosinophils 0.2 [...] WDTH 14 % 10.5-15 Laboratory test 06/12/2007 [facility] Vitamin B12 312 pg/mL 180-914 finding [address] [place] [address] [phone] Homocysteine 9 umol/L () 177 TSH 1.43 MIU/ML 0.34-5.60 1 Desirable: <150 Borderline High: 150-199 High: 200-499 Very High: >500 2 Desirable: <200 Borderline High: 200-239 High: >239 3 Low: <40 Desirable: 40-60 High: >60 4 Desirable: <100 Near Optimal: 100-129 Borderline High: 130-159 High: 160-189 Very High: >189 5 Because ethnic data is not always readily [...] 15-29 5 Kidney failure <15 (or dialysis) 6 Normal values may vary with age, season and geographic area. Titers above upper limits may be indicative of infection, however only a two dilution rise in titer is required to be considered significant. ASO titer will usually rise above upper limits within one week of exposure, increase to peak levels at 3-5 weeks and return to baseline level at 6-12 twelve months. 7 Desirable: <150 Borderline High: 150-199 High: 200-499 Very High: >500 8 Desirable: <200 Borderline High: 200-239 High: >239 9 Low: <40 Desirable: 40-60 High: >60 10 Desirable: <100 Near Optimal: 100-129 Borderline High: 130-159 High: 160-189 Very High: >189 11 Because ethnic data is not always readily [...] 15-29 5 Kidney failure <15 (or dialysis) 12 Test Result Flag Unit RefValue Histamine, Whole Blood 2415 H nmol/L 180-1800 INTERPRETIVE INFORMATION: Histamine, Whole Blood Test developed and characteristics determined by [facility]. See Compliance Statement D: [id number]/CS Performed by [facility], [address] [place] [address] [id number] [email or web address], Steve Selby MD - Lab. Director Test Performed by: [facility] [address] [place] [address] 13 No bands detected 14 No bands [...] screening test (e.g., EIA). Test Performed by: [address] [id number] 16 Acute inflammation: >10.00 17 AM 8.7-22.4 PM <10 18 Therapeutic target for the treatment of diabetes Mellitus patients is <7% HBA1C, and in selective patients <6.0%.Please refer to [place] [employer] Diabetic care guidelines for further information. 19 Normal values may vary with age, season and geographic area. Titers above upper limits may be indicative of infection, however only a two dilution rise in titer is required to be considered significant. ASO titer will usually rise above upper limits within one week of exposure, increase to peak levels at 3-5 weeks and return to baseline level at 6-12 twelve months. 20 Serologic response to B. burgdorferi infection is not detected, but cannot rule out early infection during which low or undetectable antibody levels to B. burgdorferi may be present. If clinically indicated, a new serum specimen should be submitted in 7-14 days. Test Performed by: [address] [id number] 21 Test Performed by: [address] [address] 22 Test Performed by: [address] [address] 23 Test Performed by: [address] [address] 24 Desirable <150 Borderline high 150-199 High 200-499 Very High >500 25 Desirable <200 Borderline high 200-239 High >239 26 Low <40 Desirable: 40-60 High: >60 27 Desirable: <100 mg/dL Near Optimal: 100-129 mg/dL Borderline High: 130-159 mg/dL High: 160-189 mg/dL Very High: >189 mg/dL 28 Because ethnic data is not always readily [...] 15-29 5 Kidney failure <15 (or dialysis) 29 Because ethnic data is not always [...] 5 Kidney failure <15 (or dialysis) 30 Desirable <150 Borderline high 150-199 High 200-499 Very High >500 31 Desirable <200 Borderline high 200-239 High >239 32 Low <40 Desirable: 40-60 High: >60 33 Desirable: <100 mg/dL Near Optimal: 100-129 mg/dL Borderline High: 130-159 mg/dL High: 160-189 mg/dL Very High: >189 mg/dL 34 Because ethnic data is not always readily [...] 15-29 5 Kidney failure <15 (or dialysis) 35 Because ethnic data is not always [...] 5 Kidney failure <15 (or dialysis) 36 Reference Range and Interpretation: TnI (ng/mL) Interpretation Less Than 0.03 ng/mL Not supportive of diagnosis of SD 0.03 - 0.50 ng/mL Indeterminate: suggest serial studies if clinically indicated. Greater than 0.5 ng/mL Consistent with diagnosis of SD 37 Platelet count confirmed by smear estimate. 38 Desirable <150 Borderline high 150-199 High 200-499 Very High >500 39 Desirable <200 Borderline high 200-239 High >239 40 Low <40 Desirable: 40-60 High: >60 41 Desirable <100 Near Optimal 100-129 Borderline high 130-159 High 160-189 Very High >189 42 Because ethnic data is not always readily [...] 15-29 5 Kidney failure <15 (or dialysis) 43 Serologic response to B. burgdorferi infection is not detected, but cannot rule out early infection during which low or undetectable antibody levels to B. burgdorferi may be present. If clinically indicated, a new serum specimen should be submitted in 7-14 days. Test Performed by: [place] [address] [employer]arrings Fabricator: Gerry Jarvis M.D. 44 Reference Range and Interpretation: TnI (ng/mL) Interpretation Less Than 0.03 ng/mL Not supportive of diagnosis of SD 0.03 - 0.50 ng/mL Indeterminate: suggest serial studies if clinically indicated. Greater than 0.5 ng/mL Consistent with diagnosis of SD 45 Acute inflammation: >10.00 46 Because ethnic data is not always readily [...] 15-29 5 Kidney failure <15 (or dialysis) 47 Cancelled. Specimen hemolyzed. Unable to perform test requested. Reorder for specimen recollection. Gricelda/ED was called for recollect at 1621 on 02/25/14 by [id number] Cancelled. Specimen hemolyzed. Unable to perform test requested. Reorder for specimen recollection. Gricelda/ED was called for recollect at 1621 on 02/25/14 by [id number] 49 Specimen hemolyzed. Result may not be valid. 50 Specimen hemolyzed. Result may not be valid. 51 Specimen hemolyzed. Result may not be valid. 52 Specimen hemolyzed. Result may not be valid. 53 Specimen hemolyzed. Result may not be valid. 54 Specimen hemolyzed. Result may not be valid. 55 Specimen hemolyzed. Result may not be valid. 56 Specimen hemolyzed. Result may not be valid. 57 Specimen hemolyzed. Result may not be valid. 58 Cancelled. Specimen hemolyzed. Unable to perform test requested. Reorder for specimen recollection. Gricelda/ED was called for recollect at 1621 on 02/25/14 by [id number] 59 Because ethnic data is not always readily [...] 15-29 5 Kidney failure <15 (or dialysis) 60 Reference Range and Interpretation: TnI (ng/mL) Interpretation Less Than 0.03 ng/mL Not supportive of diagnosis of SD 0.03 - 0.50 ng/mL Indeterminate: suggest serial studies if clinically indicated. Greater than 0.5 ng/mL Consistent with diagnosis of SD 61 Specimen hemolyzed. Result may not be valid. Acute inflammation: >10.00 62 Serologic response to B. burgdorferi infection is not detected, but cannot rule out early infection during which low or undetectable antibody levels to B. burgdorferi may be present. If clinically indicated, a new serum specimen should be submitted in 7-14 days. REPORT NOTE: Hemolyzed Test Performed by: [address] [address] Earrings Fabricator: Gerry Jarvis M.D. 63 AM 8.7-22.4 PM <10 64 AM 8.7-22.4 PM <10 65 AM 8.7-22.4 PM <10 66 BASELINE 67 AM 8.7-22.4 PM <10 68 Because ethnic data is not always [...] Risk: LDL Greater than 189 mg/dL 71 RUN DATE: 01/01/13 [facility] LAB LIVE PAGE 1 RUN TIME: [address] [place] [id number] Specimen Inquiry Name: ESTEVAN MILLER Sita : [address]: Ulises Taylor MD Acct: [id number] Unit: [id number] AGE: 62 Location: [facility] Re12/30/12 SEX: F Status: REG REF SPEC: [id number] VANIA: 12/30/12-[address]: Doug Taylor MD REQ: [id number] RECD: 12/30/12 STATUS: COMP _ SOURCE: URINE SPDESC: ORDERED: Urine Culture QUERIES: Medent Number [id number] Procedure Result Verified Site Urine Culture Final 01/01/13- 0950 ML Organism 1 NORMAL LYNN [place] Count 75-100,000 (Many) CFU/ML END OF REPORT * ML=Testing performed at Main Lab DEPARTMENT OF PATHOLOGY, [facility] [address] [place], [place] [address] Scooter Tompkins M.D. Director [facility] Permit #[id number] RUN DATE: 01/01/13 [facility] LAB LIVE PAGE 1 RUN TIME: 1037 [facility] [employer] [place], [place] [address] Specimen Inquiry Name: PAULESTEVAN L : [address]: Ulises Taylor MD Acct: [id number] Unit: [id number] AGE: 62 Location: [facility] Re12/30/12 SEX: F Status: REG REF SPEC: [id number] VANIA: 12/30/12-[address]: Doug Taylor MD REQ: [id number] RECD: 12/30/121628 STATUS: COMP _ SOURCE: THROAT SPDESC: ORDERED: Throat Culture QUERIES: Medent Number [id number] Procedure Result Verified Site Throat Culture Final 01/01/13- 1037 ML Organism 1 NORMAL LYNN Quantity 3+ END OF REPORT * ML=Testing performed at Main Lab DEPARTMENT OF PATHOLOGY, [facility] [address] [place], [place] [address] Scooter Tompkins M.D. Director [facility] Permit #[id number] 73 RUN DATE: 11/10/12 [facility] LAB LIVE PAGE 1 RUN TIME: 1104 [facility] [address] [place], [place] [address] Specimen Inquiry Name: ESTEVAN MILLER : [address]: Vikki Chin NP Acct: [id number] Unit: [id number] AGE: 62 Location: [facility] Re11/08/12 SEX: F Status: REG REF SPEC: [id number] VANIA: 11/08/12-[address]: Vikki Chin NP REQ: [id number] RECD: 11/08/12 STATUS: COMP _ SOURCE: LABIA SPDESC: ORDERED: Genital Culture QUERIES: Medent Number [id number] Procedure Result Verified Site Genital Culture Final 11/10/12- 1556 ML Organism 1 NORMAL LYNN Quantity 1+ END OF REPORT * ML=Testing performed at Main Lab DEPARTMENT OF PATHOLOGY, [address] [place] [address] Scooter Tompkins M.D. Director [facility] Permit #[id number] 74 Because ethnic data is not always readily [...] 15-29 5 Kidney failure <15 (or dialysis) 75 Reference Range and Interpretation: TnI (ng/ml) Interpretation Less Than 0.06 ng/mL Not supportive of diagnosis of SD 0.06 - 0.50 ng/ml Indeterminate: suggest serial studies if clinically indicated. Greater than 0.5 ng/mL Consistent with diagnosis of SD 76 Because ethnic data is not always readily [...] 15-29 5 Kidney failure <15 (or dialysis) 77 Anion gap measurement may be of limited value in the presence of any alkalosis, especially in a combined acid base disorder. . 78 A metabolite of Naproxen, O-desmethylnaproxen, has been shown to interfere with the [place] method for measuring total bilirubin. Samples from patients who have taken Naproxen have shown spurious elevation in total bilirubin levels. 79 Because ethnic data is not always readily [...] 15-29 5 Kidney failure <15 (or dialysis) 80 CHOLESTEROL INTERPRETATION: Desirable: Less than 200 MG/DL Borderline-High Risk: 200-239 MG/DL High-Risk: 240 MG/DL and over 81 HDL INTERPRETATION: Undesirable: High Risk: Less than 40 MG/DL Desirable: Low Risk: Greater than 60 MG/DL 82 LDL INTERPRETATION: Low Risk Optimal Level: LDL Less than 100 MG/DL Near or Above Optimal: LDL 100-129 MG/DL Borderline High Risk: LDL 130-159 MG/DL High Risk: LDL 160-189 MG/DL Very High Risk: LDL Greater than 189 MG/DL 83 CHOLESTEROL INTERPRETATION: Desirable: Less than 200 MG/DL Borderline-High Risk: 200-239 MG/DL High-Risk: 240 MG/DL and over 84 HDL INTERPRETATION: Undesirable: High Risk: Less than 40 MG/DL Desirable: Low Risk: Greater than 60 MG/DL 85 LDL INTERPRETATION: Low Risk Optimal Level: LDL Less than 100 MG/DL Near or Above Optimal: LDL 100-129 MG/DL Borderline High Risk: LDL 130-159 MG/DL High Risk: LDL 160-189 MG/DL Very High Risk: LDL Greater than 189 MG/DL 86 Anion gap measurement may be of limited value in the presence of any alkalosis, especially in a combined acid base disorder. . 87 A metabolite of Naproxen, O-desmethylnaproxen, has been shown to interfere with the [place] method for measuring total bilirubin. Samples from patients who have taken Naproxen have shown spurious elevation in total bilirubin levels. 88 Because ethnic data is not always readily [...] 15-29 5 Kidney failure <15 (or dialysis) 89 Anion gap measurement may be of limited value in the presence of any alkalosis, especially in a combined acid base disorder. . 90 A metabolite of Naproxen, O-desmethylnaproxen, has been shown to interfere with the [place] method for measuring total bilirubin. Samples from patients who have taken Naproxen have shown spurious elevation in total bilirubin levels. 91 Because ethnic data is not always readily [...] 15-29 5 Kidney failure <15 (or dialysis) 92 New Reference Range and Interpretation effective 02/21/2002 TnI (ng/ml) INTERPRETATION Less Than 0.06 ng/mL NOT SUPPORTIVE OF DIAGNOSIS OF SD 0.06 - 0.50 ng/ml INDETERMINATE: SUGGEST SERIAL STUDIES IF CLINICALLY INDICATED. Greater than 0.5 ng/mL CONSISTENT WITH DIAGNOSIS OF SD . 93 Anion gap measurement may be of limited value in the presence of any alkalosis, especially in a combined acid base disorder. . 94 Because ethnic data is not always readily [...] 15-29 5 Kidney failure <15 (or dialysis) 95 Recommended INR for Patients on Oral Anticoagulants Prophylaxis 2.0 - 3.0 Treatment of thrombosis 2.0 - 3.0 Prevention of embolism 2.0 - 3.0 Prevention of embolism from prosthetic heart valves 2.5 - 3.5 96 DIAGNOSIS,TREATMENT,AND THERAPY MUST BE BASED ON THE INR VALUE ALONE. 97 RUN DATE: 08/22/11 [facility] NMI LIVE PAGE 1 RUN TIME: 0850 Specimen Inquiry RUN USER: INTERFACE Name: ESTEVAN MILLER José Luis#: [id number] Status: REG REF Re08/21/11 Age/Sex: 61/F Unit#: [id number] Location: [address] [place] [address].O.B. : [birth year] SPEC #: [id number] VANIA: 08/21/11 STATUS: XI REQ #: [id number] RECD: 08/21/11-8 [facility] DR: José Miguel Veloz MD SOURCE: CLOTEST ENTR: 08/21/[address]: Claudia KAMARA,Ulises [facility]guyễn [facility]: ORDERED: CLOTEST ACT WKST: MISC 08/22/11 #1 Procedure Result Verified Site > CLOTEST Final 08/22/11848 ML CLOTEST NEGATIVE [facility] Permit #[id number] [address] [place] [address] DEPARTMENT OF PATHOLOGY, [address] [place] [address] [facility] Permit #[id number] Monika Guthrie M.D. Improvement Advisor 98 Basophilia % 99 Recommended INR for Patients on Oral [...] has been shown to interfere with the [place] method for measuring total bilirubin. Samples from [...] <15 (or dialysis) 105 RUN DATE: 07/23/11 [facility] NMI LIVE PAGE 1 RUN TIME: 1202 Specimen Inquiry RUN USER: INTERFACE Name: ESTEVAN MILLER Status: DEP ER Re07/21/11 Age/Sex: 61/F Unit#: [id number] Location: [facility]. : [birth year] SPEC #: [id number] VANIA: 07/21/11 STATUS: COMP REQ #: [id number] RECD: 07/21/11-1500 [facility] DR: Eduardo Grant MD SOURCE: URINE ENTR: 07/21/11-[address] [facility] [address]: Claudia KAMARA,Ulises Nguyễn [facility]: ORDERED: URINE C S ACT WKST: UR 07/23/11 #1 Procedure Result Verified Site > URINE CULTURE SENSITIVI Final 07/23/11- 1202 ML SPECIMEN CONTAINS NORMAL URETHRAL OR PERINEAL LYNN AND DOES NOT SUGGEST URINARY TRACT INFECTION - [facility] Permit #[id number] [address] [place] [address] DEPARTMENT OF PATHOLOGY, [address] [place] [address] [facility] Permit #[id number] Monika Guthrie M.D. Improvement Advisor 106 AA 05/29 107 RUN DATE: 05/21/11 [facility] NMI LIVE PAGE 1 RUN TIME: 822 Specimen Inquiry RUN USER: INTERFACE Name: ESTEVAN MILLER Sita Status: REG REF Re05/19/11 Age/Sex: 60/F Unit#: [id number] Location: [place] : [birth year] SPEC #: [id number] VANIA: 05/19/11 STATUS: COMP REQ #: [id number] RECD: 05/19/11-[address]: Nasir KAMARA,Tristan Mae SOURCE: URINE ENTR: 05/19/11-8 [facility] [address]: Claudia KAMARA,Ulises Nguyễn [facility]: ORDERED: URINE C S ACT WKST: UR 05/21/11 #1 Procedure Result Verified Site > URINE CULTURE SENSITIVI Final 05/21/11- 822 ML SCANT NORMAL URETHRAL OR PERINEAL LYNN [facility] Permit #[id number] [address] [place] [address] DEPARTMENT OF PATHOLOGY, [address] [place] [address] [facility] Permit #[id number] Monika Guthrie M.D. Improvement Advisor 108 PREADMISSION TESTING SAMPLES FOR BLOOD BANK WILL [...] WITHIN 3 DAYS OF THE SURGERY DATE. 109 Anion gap measurement may be of limited value in the presence of any alkalosis, especially in a combined acid base disorder. . 110 Because ethnic data is not always readily [...] 15-29 5 Kidney failure <15 (or dialysis) 111 Recommended INR for Patients on Oral Anticoagulants Prophylaxis 2.0 - 3.0 Treatment of thrombosis 2.0 - 3.0 Prevention of embolism 2.0 - 3.0 Prevention of embolism from prosthetic heart valves 2.5 - 3.5 112 DIAGNOSIS,TREATMENT,AND THERAPY MUST BE BASED ON THE INR VALUE ALONE. 113 A metabolite of Naproxen, O-desmethylnaproxen, has been shown to interfere with the [place] method for measuring total bilirubin. Samples from patients who have taken Naproxen have shown spurious elevation in total bilirubin levels. 114 Please note updated reference range, effective 12/09/09 115 Anion gap measurement may be of limited value in the presence of any alkalosis, especially in a combined acid base disorder. . 116 A metabolite of Naproxen, O-desmethylnaproxen, has been shown to interfere with the [place] method for measuring total bilirubin. Samples from patients who have taken Naproxen have shown spurious elevation in total bilirubin levels. 117 Because ethnic data is not always readily [...] 15-29 5 Kidney failure <15 (or dialysis) 118 CHOLESTEROL INTERPRETATION: Desirable: Less than 200 MG/DL Borderline-High Risk: 200-239 MG/DL High-Risk: 240 MG/DL and over 119 HDL INTERPRETATION: Undesirable: High Risk: Less than 40 MG/DL Desirable: Low Risk: Greater than 60 MG/DL 120 LDL INTERPRETATION: Low Risk Optimal Level: LDL Less than 100 MG/DL Near or Above Optimal: LDL 100-129 MG/DL Borderline High Risk: LDL 130-159 MG/DL High Risk: LDL 160-189 MG/DL Very High Risk: LDL Greater than 189 MG/DL 121 Anion gap measurement may be of limited value in the presence of any alkalosis, especially in a combined acid base disorder. . 122 Note change in reference range as of 01/09/08. The change was based on recommendations from the [place] [employer]. 123 Please note change in reference range effective 07 . 124 A metabolite of Naproxen, O-desmethylnaproxen, has been shown to interfere with the [place] method for measuring total bilirubin. Samples from patients who have taken Naproxen have shown spurious elevation in total bilirubin levels. 125 Because ethnic data is not always readily [...] 15-29 5 Kidney failure <15 (or dialysis) 126 CHOLESTEROL INTERPRETATION: Desirable: Less than 200 MG/DL Borderline-High Risk: 200-239 MG/DL High-Risk: 240 MG/DL and over 127 HDL INTERPRETATION: Undesirable: High Risk: Less than 40 MG/DL Desirable: Low Risk: Greater than 60 MG/DL 128 LDL INTERPRETATION: Low Risk Optimal Level: LDL Less than 100 MG/DL Near or Above Optimal: LDL 100-129 MG/DL Borderline High Risk: LDL 130-159 MG/DL High Risk: LDL 160-189 MG/DL Very High Risk: LDL Greater than 189 MG/DL 129 Anion gap measurement may be of limited value in the presence of any alkalosis, especially in a combined acid base disorder. . 130 Note change in reference range as of 01/09/08. The change was based on recommendations from the [place] [employer]. 131 Please note change in reference range effective 07 . 132 Because ethnic data is not always readily [...] 15-29 5 Kidney failure <15 (or dialysis) 133 -- REFERENCE VALUE -- <20.0 (Negative) 20.0-39.9 (Weak Positive) 40.0-59.9 (Positive) >=60.0 (Strong Positive) Test Performed by: [facility] Dpt of Lab Med and Pathology [address] [place] [address] Earrings Fabricator: Emre Zamora III, M.D. 134 CHOLESTEROL INTERPRETATION: Desirable: Less than 200 MG/DL Borderline-High Risk: 200-239 MG/DL High-Risk: 240 MG/DL and over 135 HDL INTERPRETATION: Undesirable: High Risk: Less than 40 MG/DL Desirable: Low Risk: Greater than 60 MG/DL 136 LDL INTERPRETATION: Low Risk Optimal Level: LDL Less than 100 MG/DL Near or Above Optimal: LDL 100-129 MG/DL Borderline High Risk: LDL 130-159 MG/DL High Risk: LDL 160-189 MG/DL Very High Risk: LDL Greater than 189 MG/DL 137 A metabolite of Naproxen, O-desmethylnaproxen, has been shown to interfere with the [place] method for measuring total bilirubin. Samples from patients who have taken Naproxen have shown spurious elevation in total bilirubin levels. 138 -- REFERENCE VALUE -- <1.0 (Negative) > or=1.0 (Positive) Test Performed by: [facility] Dpt of Lab Med and Pathology [address] [place] [address] Earrings Fabricator: Emre Zamora III, M.D. 139 Test Performed by: [facility] Dpt of Lab Med and Pathology [address] [place] [address] E[employer] Fabricator: Emre Zamora III, M.D. 140 A metabolite of Naproxen, O-desmethylnaproxen, has been shown to interfere with the [place] method for measuring total bilirubin. Samples from patients who have taken Naproxen have shown spurious elevation in total bilirubin levels. 141 CHOLESTEROL INTERPRETATION: Desirable: Less than 200 MG/DL Borderline-High Risk: 200-239 MG/DL High-Risk: 240 MG/DL and over 142 HDL INTERPRETATION: Undesirable: High Risk: Less than 40 MG/DL Desirable: Low Risk: Greater than 60 MG/DL 143 LDL INTERPRETATION: Low Risk Optimal Level: LDL Less than 100 MG/DL Near or Above Optimal: LDL 100-129 MG/DL Borderline High Risk: LDL 130-159 MG/DL High Risk: LDL 160-189 MG/DL Very High Risk: LDL Greater than 189 MG/DL 144 CHOLESTEROL INTERPRETATION: Desirable: Less than 200 MG/DL Borderline-High Risk: 200-239 MG/DL High-Risk: 240 MG/DL and over 145 HDL INTERPRETATION: Undesirable: High Risk: Less than 40 MG/DL Desirable: Low Risk: Greater than 60 MG/DL 146 LDL INTERPRETATION: Low Risk Optimal Level: LDL Less than 100 MG/DL Near or Above Optimal: LDL 100-129 MG/DL Borderline High Risk: LDL 130-159 MG/DL High Risk: LDL 160-189 MG/DL Very High Risk: LDL Greater than 189 MG/DL 147 A metabolite of Naproxen, O-desmethylnaproxen, has been shown to interfere with the [place] method for measuring total bilirubin. Samples from patients who have taken Naproxen have shown spurious elevation in total bilirubin levels. 148 FASTING 149 CHOLESTEROL INTERPRETATION: Desirable: Less than 200 MG/DL Borderline-High Risk: 200-239 MG/DL High-Risk: 240 MG/DL and over 150 HDL INTERPRETATION: Undesirable: High Risk: Less than 40 MG/DL Desirable: Low Risk: Greater than 60 MG/DL 151 LDL INTERPRETATION: Low Risk Optimal Level: LDL Less than 100 MG/DL Near or Above Optimal: LDL 100-129 MG/DL Borderline High Risk: LDL 130-159 MG/DL High Risk: LDL 160-189 MG/DL Very High Risk: LDL Greater than 189 MG/DL 152 2HR GTT 2HR SERUM 2HR GLUCOSE from [id number]. 153 REFERENCE RANGE: 5-15 MG/DL ABOVE FASTING 154 THERAPEUTIC TARGET FOR THE TREATMENT OF DIABETES MELLITUS PATIENTS IS <7% HBA1C, AND IN SELECTIVE PATIENTS <6.0%. PLEASE REFER TO [place] [employer] DIABETIC CARE GUIDELINES FOR FURTHER INFORMATION. 155 REFERENCE RANGE: 20-50 MG/DL ABOVE FASTING 156 URINE TESTED BY JCB - NEGATIVE RESULT, 157 PLEASE NOTE NEW REFERENCE RANGES. 158 CHOLESTEROL INTERPRETATION: Desirable: Less than 200 MG/DL Borderline-High Risk: 200-239 MG/DL High-Risk: 240 MG/DL and over 159 HDL INTERPRETATION: Undesirable: High Risk: Less than 40 MG/DL Desirable: Low Risk: Greater than 60 MG/DL 160 LDL INTERPRETATION: Low Risk Optimal Level: LDL Less than 100 MG/DL Near or Above Optimal: LDL 100-129 MG/DL Borderline High Risk: LDL 130-159 MG/DL High Risk: LDL 160-189 MG/DL Very High Risk: LDL Greater than 189 MG/DL 161 A metabolite of Naproxen, O-desmethylnaproxen, has been shown to interfere with the [place] method for measuring total bilirubin. Samples from patients who have taken Naproxen have shown spurious elevation in total bilirubin levels. 162 Test Performed by: [facility] Dpt of Lab Med and Pathology [address] [place] [address] Earrings Fabricator: Emre Zamora III, M.D. 163 CHOLESTEROL INTERPRETATION: Desirable: Less than 200 MG/DL Borderline-High Risk: 200-239 MG/DL High-Risk: 240 MG/DL and over 164 HDL INTERPRETATION: Undesirable: High Risk: Less than 40 MG/DL Desirable: Low Risk: Greater than 60 MG/DL 165 LDL INTERPRETATION: Low Risk Optimal Level: LDL Less than 100 MG/DL Near or Above Optimal: LDL 100-129 MG/DL Borderline High Risk: LDL 130-159 MG/DL High Risk: LDL 160-189 MG/DL Very High Risk: LDL Greater than 189 MG/DL 166 Note change in reference range as of 01/09/08. The change was based on recommendations from the [place] [employer]. 167 PATIENT MAY HAVE RESULTS PER DOCTOR'S AUTHORIZATION. Questions regarding this report should be directed to your doctor. 168 CHOLESTEROL INTERPRETATION: Desirable: Less than 200 MG/DL Borderline-High Risk: 200-239 MG/DL High-Risk: 240 MG/DL and over 169 HDL INTERPRETATION: Undesirable: High Risk: Less than 40 MG/DL Desirable: Low Risk: Greater than 60 MG/DL 170 UNABLE TO CALCULATE LDL TRIGLYCERIDE IS > 400 171 Note change in reference range as of 01/09/08. The change was based on recommendations from the [place] [employer]. 172 Anion gap measurement may be of limited value in the presence of any alkalosis, especially in a combined acid base disorder. . 173 Note change in reference range as of 01/09/08. The change was based on recommendations from the [place] [employer]. 174 Please note change in reference range effective 07 . 175 -- REFERENCE VALUE -- Mean +1 SD +2 SD 13.2 41.0 127.0 Test Performed by: [facility] Dpt of Lab Med and Pathology [address] [place] [address] Earrings Fabricator: Emre Zamora III, M.D. 176 -- REFERENCE VALUE -- <=13 (Fasting) Test Performed by: [facility] Dpt of Lab Med and Pathology [address] [place] [address] Earrings Fabricator: Emre Zamora III, M.D. 177 -- REFERENCE VALUE -- <=13 (Fasting) Test Performed by: [facility] Dpt of Lab Med and Pathology [address] [place] [address] Earrings Fabricator: Emre Zamora III, M.D. Procedures Date Code Description Status 03/22/2018 38801 EKG Tracing & Interpretation Completed 07/19/2017 16500 EKG Tracing & Interpretation Completed 12/28/2016 53361 Holter Monitor Review (24 hr)dr holt & interp only Completed 12/27/2016 61919 ECG Monitor/Recording W/Visual Superimposition Completed Scanning 11/03/2016 12062 ECHO Transthoracic, Real-Time 2D With Doppler And Completed Color Flow 10/26/2016 51279 EKG Tracing & Interpretation Completed 06/09/2016 [id number] Bone Mineral Density Test Completed 06/09/2016 [id number] Mammogram Completed 01/05/2016 61393 EKG Tracing & Interpretation Completed 06/21/2015 59595 ECHO Transthoracic, Real-Time 2D With Doppler And Completed Color Flow 04/27/2015 24804 EKG Tracing & Interpretation Completed 07/21/2014 24342 Holter Monitor Review (24 hr)dr holt & interp only Completed 07/21/2014 85220 ECG Monitor/Recording W/Visual Superimposition Completed Scanning 07/21/2014 54516 Holter Monitoring 24 HR New Completed 05/04/2014 19126 EKG Tracing & Interpretation Completed 03/11/2014 [id number] Mammogram Completed 11/05/2013 67926 Rad Exam; Hip Unilat Completed 11/05/2013 60406 Rad Exam; Hip Unilat Completed 11/05/2013 14758 Rad Shoulder Comp, Min. 2 Views Completed 11/05/2013 76530 Rad Exam; Pelvis Completed 11/05/2013 08462 Inject/Drain Joint/Bursa Small W/O US Completed 09/29/2013 90044 EKG Tracing & Interpretation Completed 02/05/2013 16860 Holter Monitoring 24 HR New Completed 02/05/2013 25941 Holter Monitoring 24 HR New Completed 02/05/2013 42232 EKG Tracing & Interpretation Completed 06/19/2012 85949 Holter Monitoring 24 HR New Completed 05/06/2012 96759 EKG Tracing & Interpretation Completed 05/02/2012 98893 Rad Exam; Hip Unilat Completed 05/02/2012 76643 Rad Exam; Pelvis Completed 01/26/2012 [id number] Mammogram Completed 01/15/2012 97396 Polysomnography Sleep Staging 4+ Parameters W/Cpap Completed 09/13/2011 33921 ECHO Stress Test Incl Perf Contiuous ekg Monitoring Completed W/Phys Superv 09/04/2011 09384 Holter Monitoring 24 HR New Completed 08/25/2011 34168 ECHO Transthoracic, Real-Time 2D With Doppler And Completed Color Flow 08/02/2011 20502 EKG Tracing & Interpretation Completed 07/21/2011 18030 EKG Tracing & Interpretation Completed 06/27/2011 52144 Rad Exam; Pelvis Completed 06/27/2011 98351 Rad Exam; Hip Unilat Completed 05/29/2011 38680 THR Total Hip Replacement Completed 05/29/2011 33337 THR Total Hip Replacement Completed 05/19/2011 16054 EKG, Interpretation Only Completed 08/02/2006 [id number] Bone Mineral Density Test Completed 05/02/2004 [id number] Colonoscopy Completed Encounters Type Date Location Provider Dx Diagnosis Office Visit 03/22/2018 [facility] Sweta Malagon 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 M.D. pain Office Visit 02/07/2017 2:45p [facility] Services Tristan Best M54.5 Low back Of C.M.A. M.D. pain M54.2 Cervicalgia Office Visit 10/26/2016 Nahed Malagon G47.33 Obstructive sleep 10:40a Cardiology Of Monika Hoffman apnea (adult) [facility] (pediatric) E78.4 Other hyperlipidemia I10 Essential (primary) hypertension A69.20 Lyme disease, unspecified I25.10 Athscl heart disease of [place] coronary artery w/o ang pctrs R06.02 Shortness of breath Office Visit 06/16/2016 [facility] Internal Nurse Visit R00.2 Palpitations 1:00p Medicine - [address] Office Visit 06/13/2016 Pulmonology And Kaitlyn G47.33 Obstructive sleep 1:30p Sleep Services Of RADHA Zamora, RN, apnea (adult) [facility] RELAYS DRAFTSPERSON- (pediatric) R00.2 Palpitations Office Visit 06/07/2016 2:45p Orthopedic Tristan Z96.641 Presence 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 M54.5 Low back pain M62.838 Other muscle spasm Office Visit 06/06/2016 1:40p [facility] Internal Alfredo Mcdaniel, Z00.00 Encntr for Medicine - [place] THRESHING DEPARTMENT SUPERVISOR general adult Rd medical exam w/o abnormal findings R00.2 Palpitations R10.11 Right upper quadrant pain R73.01 Impaired fasting glucose E78.4 Other hyperlipidemia I10 Essential (primary) hypertension G47.33 Obstructive sleep apnea (adult) (pediatric) Z12.31 Encntr screen mammogram for malignant neoplasm of breast M81.0 Age-related osteoporosis w/o current pathological fracture Office Visit 01/05/2016 Georgette Sol S. A69.20 Lyme disease, 4:20p Cardiology Monika Hoffman unspecified E78.4 Other hyperlipidemia I10 Essential (primary) hypertension G47.33 Obstructive sleep apnea (adult) (pediatric) I25.10 Athscl heart disease of [place] coronary artery w/o ang pctrs Z68.36 Body mass index (BMI) 36.0-36.9, adult E66.9 Obesity, unspecified R94.31 Abnormal electrocardiogram [ECG] [EKG] Office Visit 05/06/2015 Orthopedic Tristan M16.11 Unilateral primary 11:30a Services Of Monika Best osteoarthritis, C.M.A. 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 A69.20 Lyme disease, 3:40p Cardiology Monika Hoffman unspecified E78.4 Other hyperlipidemia I10 Essential (primary) hypertension I25.10 Athscl heart disease of [place] coronary artery w/o ang pctrs Office Visit 08/03/2014 11:00a [facility] LOPEZ Parks 785.1 Palpitations 300.00 Anxiety State Unspec 272.4 Hyperlipidemia Other Unspec 401.1 Hypertension Benign Office Visit 07/07/2014 11:30a [facility] LOPEZ Parks 785.1 Palpitations 300.00 Anxiety State Unspec 401.1 Hypertension Benign Office Visit 07/02/2014 2:15p [facility] Nurse Visit cc 401.1 Hypertension Benign Office Visit 05/04/2014 4:20p [facility] Qutaybeh S. 401.1 Hypertension David Hoffman M.D. 414.01 Coronary Atherosclerosis [place] 794.31 Electrocardiogram (ECG) (EKG) Abnormal 272.4 Hyperlipidemia Other Unspec Office Visit 03/17/2014 [facility] Internal Sánchez Tobin NP 300.00 Anxiety State 11:00a Medicine - Unspec [place] Office Visit 03/06/2014 Pulmonology And Kaitlyn 327.23 Obstructive Sleep 1:30p Sleep Services Of RADHA Zamora, RN, Apnea Adult & [facility] RELAYS DRAFTSPERSON-BC Pediatric Office Visit 03/03/2014 [facility] Internal Doug Nguyễn 458.0 Hypotension 10:50a Gina Taylor M.D.,[facility] Orthostatic [place] 300.00 Anxiety State Unspec Office Visit 02/19/2014 11:10a [facility] Internal Doug Nguyễn 088.81 Lyme Disease Gina Taylor M.D.,[facility] [place] 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 414.01 Coronary 1:20p Cardiology Walt Hoffman M.D. [place] 401.1 Hypertension Benign 785.1 Palpitations 794.31 Electrocardiogram (ECG) (EKG) Abnormal 272.4 Hyperlipidemia Other Unspec Office Visit 07/03/2013 [facility] Internal Doug Nguyễn 414.01 Coronary 10:10a Gina Taylor M.D.,[facility] Atherosclerosis [place] 401.1 Hypertension Benign 790.21 Impaired Fasting Glucose 724.1 Pain Thoracic Spine Office Visit 03/28/2013 10:20a Rheumatology Luke Barrera, 338.4 Chronic Pain Services Of [facility] Syndrome 795.79 Immunological Findings Nonspec Other & Unspec Office Visit 02/05/2013 [place] Sweta S. 414.01 Coronary 11:00a Cardiology Monika Hoffman Atherosclerosis [place] 401.1 Hypertension Benign 785.1 Palpitations 794.31 Electrocardiogram (ECG) (EKG) Abnormal 272.4 Hyperlipidemia Other Unspec Office Visit 12/30/2012 12:10p [facility] Internal Doug Nguyễn 472.1 Pharyngitis Gina Taylor M.D.,[facility] 788.41 Urinary Frequency Office Visit 11/08/2012 3:00p [facility] Internal Vikki Giuseppe, 780.4 Dizziness & Medicine - N.P. [facility] V72.[address] Sql Developer Examination Office Visit 09/06/2012 10:00a Rheumatology Luke Barrera, 338.4 Chronic Pain Services Of [facility] RELAYS DRAFTSPERSON Syndrome 795.79 Immunological Findings Nonspec Other & Unspec Office Visit 09/05/2012 10:30a [facility] Jose Nguyễn V70.0 Examination Gina Taylor M.D.,[facility] Routine AT Health Care Facility 414.01 Coronary Atherosclerosis [place] 401.1 Hypertension Benign Office Visit 06/19/2012 11:00a [facility] Nurse Visit 401.1 Hypertension Benign cc 785.1 Palpitations Office Visit 05/06/2012 [place] Qutaybeh S. 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 401.1 Hypertension [...] Pelvic & Thigh Office Visit 02/15/2012 10:10a [facility] Internal Doug Nguyễn 780.4 Dizziness & Gina Taylor M.D.,[facility] 414.01 Coronary Atherosclerosis [place] V04.81 Need For Prophylactic Vaccination & Inoculation/Influenza Office Visit 11/01/2011 10:00a [facility] Jose Nguyễn 401.1 Hypertension Gina Taylor M.D.,FACP Benign [place] 780.4 Dizziness & Giddiness 414.01 Coronary Atherosclerosis [place] 790.21 Impaired Fasting Glucose Office Visit 10/20/2011 Rheumatology Valeriano Valdes, 795.79 Immunological 10:40a Services Of Addison Frank Findings Nonspec Other & Unspec 726.5 Enthesopathy Of Hip Region 338.4 Chronic Pain Syndrome Office Visit 10/02/2011 Georgette Sol S. 414.01 Coronary 2:00p Cardiology Monika Hoffman Atherosclerosis [place] 401.1 Hypertension Benign 272.0 Hypercholesterolemia Pure Office Visit 10/02/2011 [facility] Internal Doug Nguyễn 414.01 Coronary 10:50a Walt Claudio [place] Shonna Frank,FACP Office Visit 09/15/2011 Georgette Sol SLilo 794.31 Electrocardiogram 3:20p Tonie Hoffman, (ECG) (EKG) Abnormal Monika 401.1 Hypertension Benign 780.4 Dizziness & Giddiness 785.1 Palpitations Office Visit 09/13/2011 Orthopedic Tristan 715.95 Osteoarthrosis 10:00a Services Of Monika Best Unspec Genlzd Or C.M.A. Localized Pelvic & Thigh Office Visit 08/25/2011 [facility] Internal Vikki 401.1 Hypertension Benign 11:00a Medicine - Giuseppe, N.P. [place] 300.09 Anxiety States Other Office Visit 08/02/2011 2:40p [place] Tonie Malagon 780.4 Dizziness & Monika Hoffman Giddiness 401.1 Hypertension Benign 785.1 Palpitations 794.31 Electrocardiogram (ECG) (EKG) Abnormal Office Visit 07/25/2011 2:45p [facility] Internal Vikki Chin, 780.4 Dizziness & Medicine - N.P. Giddiness [place] 401.1 Hypertension Benign 785.1 Palpitations 789.00 Pain Abdominal Unspec Site Office Visit 07/21/2011 10:30a [facility] Internal Vikki Chin, 785.1 Palpitations Medicine - N.P. [place] 787.3 Flatulence Eructation & Gas Pain 530.11 Esophagitis Reflux 300.09 Anxiety States Other V72.60 Laboratory Examination, Unspecified Office Visit 05/19/2011 DO Not Use Addison Nguyễn V72.81 Examination 1:00p AT Fay Taylor M.D.,[facility] Preoperative Cardiovascular 715.00 Osteoarthrosis Generalized Site [...] Thigh Office Visit 03/27/2011 DO Not Use Film Editor Supervisor Doug Nguyễn V70.0 Examination General 9:10a AT Fay Taylor, [facility] V76.10 Screening For Malignant Neoplasm Breast 715.15 Osteoarthrosis Localized Prim Pelvic & Thigh 272.0 Hypercholesterolemia Pure v04.81 Need For Prophylactic Vaccination & Inoculation/Influenza v04.89 Need For Prophylactic Vaccination & Inoculation Other Virus V05.8 Single Disease Spec Other Vaccination & Inoculation Office Visit 03/13/2011 DO Not Use Film Editor Supervisor Miah 077.8 Conjunctivitis Viral 2:20p AT Fay Lyon M.D. Other Office Visit 03/06/2011 DO Not Use Film Editor Supervisor Celina Martin, 372.11 Conjunctivitis 2:20p AT Fay Frank Simple Chronic 373.00 Blepharitis Unspec Office Visit 02/03/2011 1:40p Rheumatology Valeriano Valdes, 338.4 Chronic Pain Services Of Addison AdaWill Syndrome 720.0 Spondylitis Ankylosing Office Visit 01/17/2011 8:30a DO Not Use Film Editor Supervisor Doug Nguyễn 535.00 Gastritis Acute AT Fay Taylor M.D.,[facility] W/O Hemorrhage Office Visit 12/16/2010 10:30a DO Not Use Film Editor Supervisor Doug Nguyễn 466.0 Bronchitis Acute AT Fay Taylor M.D.,[facility] 300.00 Anxiety State Unspec Office Visit 11/09/2010 11:40a DO Not Use Film Editor Supervisor Doug Nguyễn 780.4 Dizziness & AT [facility] Monika Taylor,[facility] Giddiness 300.00 Anxiety State Unspec Office Visit 10/13/2010 10:00a Rheumatology Valeriano Valdes, 338.4 Chronic Pain Services Of Addison Caballero.D. Syndrome Office Visit 2010 2:40p Rheumatology Valeriano Valdes, 720.0 Spondylitis Services Of Film Editor Supervisor Monika Ankylosing 338.4 Chronic Pain Syndrome Office Visit 06/20/2010 9:40a DO Not Use Film Editor Supervisor Miah Lyon, 461.9 Sinusitis Acute AT [facility] Monika Unspec Office Visit 04/21/2010 11:00a DO Not Use Film Editor Supervisor Doug Nguyễn 720.0 Spondylitis AT [facility] Monika Taylor,[facility] Ankylosing V04.81 Need For Prophylactic Vaccination & Inoculation/Influenza 272.2 Hyperlipidemia Mixed 401.1 Hypertension Benign Office Visit 10/20/2009 9:40a DO Not Use Film Editor Supervisor Doug Nguyễn 720.0 Spondylitis AT [facility] Monika Taylor,[facility] Ankylosing 272.2 Hyperlipidemia Mixed 790.21 Impaired Fasting Glucose 401.1 Hypertension Benign Office Visit 07/01/2009 DO Not Use Film Editor Supervisor Nisa Cordova PA 272.2 Hyperlipidemia Mixed 9:30a AT [facility] 790.21 Impaired Fasting Glucose 401.1 Hypertension Benign Office Visit 04/30/2009 DO Not Use Film Editor Supervisor Nisa Cordova PA 272.2 Hyperlipidemia Mixed 10:00a AT [facility] 729.1 Myalgia & Myositis Unspec Office 03/31/2009 DO Not Use Nisa Cordova PA 272.2 Hyperlipidemia Visit 10:30a Film Editor Supervisor AT [facility] Office 02/16/2009 DO Not Use Doug Taylor, 473.9 Sinusitis Chronic Visit 3:40p Film Editor Supervisor AT Monika,FACP Unspec [facility] Office 01/22/2009 DO Not Use Nisa Cordova PA 272.2 Hyperlipidemia Visit 9:00a Film Editor Supervisor AT [facility] Office 12/25/2008 DO Not Use Nisa Cordova PA 272.2 Hyperlipidemia Visit 9:00a Film Editor Supervisor AT [facility] 729.1 Myalgia & Myositis Unspec Office Visit 11/24/2008 8:30a DO Not Use Film Editor Supervisor Nisa Cordova PA 780.4 Dizziness & AT [facility] Giddiness 272.2 Hyperlipidemia Mixed Office Visit 11/19/2008 11:20a DO Not Use Film Editor Supervisor Francis, 251.2 Hypoglycemia Other AT [facility] Monika Lozano Unspec Office Visit 11/17/2008 2:30p DO Not Use Film Editor Supervisor Nisa Cordova PA 729.1 Myalgia & Myositis AT [facility] Unspec 272.2 Hyperlipidemia Mixed Office Visit 09/15/2008 9:40a DO Not Use Film Editor Supervisor AT Doug Taylor, 272.7 Lipidoses [facility] Monika,FACP 729.1 Myalgia & Myositis Unspec Office Visit 07/28/2008 9:20a DO Not Use Film Editor Supervisor Doug Nguyễn 719.45 Pain Joint AT Fay Taylor M.D.,FACP Pelvic Region & Thigh 401.1 Hypertension Benign 729.1 Myalgia & Myositis Unspec 272.2 Hyperlipidemia Mixed Office Visit 06/03/2008 9:00a DO Not Use Film Editor Supervisor Thananart, 401.1 Hypertension AT Stanberrymercedes Wan M.D. Benign 300.09 Anxiety States Other Office Visit 04/28/2008 11:00a DO Not Use Film Editor Supervisor Doug Nguyễn 780.4 Dizziness & AT Fay Taylor M.D.,FACP [place] 401.1 Hypertension Benign V04.81 Need For Prophylactic Vaccination & Inoculation/Influenza v04.81 Need For Prophylactic Vaccination & Inoculation/Influenza Office Visit 02/24/2008 11:18a DO Not Use Film Editor Supervisor Doug Nguyễn 780.4 Dizziness & AT Fay Taylor M.D.,FACP [place] 300.09 Anxiety States Other 401.1 Hypertension Benign Office Visit 12/25/2007 9:20a DO Not Use Film Editor Supervisor Doug Nguyễn 780.4 Dizziness & AT Fay Taylor M.D.,FACP [place] 327.23 Obstructive Sleep Apnea Adult & Pediatric Office Visit 10/25/2007 9:20a DO Not Use Film Editor Supervisor Doug Nguyễn 780.4 Dizziness & AT Fay Taylor M.D.,FACP [place] 530.5 Esophageal Dyskinesia 327.23 Obstructive Sleep Apnea Adult & Pediatric Office Visit 09/16/2007 4:00p DO Not Use Film Editor Supervisor Doug Nguyễn 447.6 Arteritis Unspec AT Fay Taylor M.D.,FACP 401.1 Hypertension Benign 780.4 Dizziness & Giddiness 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 Unspec 715.15 Osteoarthrosis Localized Prim Pelvic & Thigh Office Visit 07/15/2007 10:20a DO Not Use [facility] Doug Nguyễn 780.4 Dizziness & AT Fay [facility] M.D.,[facility] Gidd[facility] 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 327.23 Obstructive Sleep Apnea Adult & Pediatric 401.1 Hypertension Benign Office Visit 06/12/2007 9:20a DO Not Use Film Editor Supervisor Doug Nguyễn 327.23 Obstructive Sleep AT Fay Taylor M.D.,[facility] Apnea Adult & Pediatric 401.1 Hypertension Benign 272.2 Hyperlipidemia Mixed 780.4 Dizziness & Giddiness 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 Plan of Treatment Future Appointment(s):06/28/2018 1:00 pm - Marii Pagan MD at [facility] Internal Medicine [facility]06/24/2018 - Lizet Gonzalez, N.P.N39.0 Urinary tract infection, site not specifiedNew Medication:Bactrim DS 800-160 mg - one by mouth twice a day for 7 daysComments:For your urinary tract infection:I sent a prescription to the pharmacy for Bactrim DS mg, take one by mouth twice daily for 7 days.Avoid bladder irritants: coffee, tea, gloria, alcohol, and spicy foods.I am sending a specimen for culture, the office will call if you need a different antibiotic. If symptoms persist call the office.
[2018-07-17 11:43] LABS: Acetaminophen < 15 mcg/mL; Alcohol < 10 mg/dL (<10); Salicylate < 2.50 mg/dL (<30)
[2018-07-17 11:57] LABS: TSH (Thyroid Stimulating Horm) 1.12 mcIU/mL (0.34-5.60)
[2018-07-17 12:17] LABS: Urine Appearance Clear; Urine Bilirubin Negative (Negative); Urine Blood Negative (Negative); Urine Color Straw; Urine Glucose Negative (Negative); Urine Ketones Negative (Negative); Urine Nitrite Negative (Negative); Urine Protein Negative (Negative); Urine Specific Gravity 1.006 (1.010-1.030); Urine Urobilinogen Negative (Negative)
[2018-07-17 13:23] LABS: Barbiturates Urine Screen None Detected (None Detect); Benzodiazepine Urine Screen None Detected (None Detect); Urine Cannabinoids Screen None Detected (None Detect)
[2018-07-17 14:09] VITALS: BP 161/83
== END 2018-07-17 14:09 | disposition home or self-care (01) ==
LOC: ED 10:10
DX: F41.9 Anxiety disorder, unspecified (principal); R42 Dizziness and giddiness; R00.2 Palpitations; Z79.01 Long term (current) use of anticoagulants; I10 Essential (primary) hypertension; R45.851 Suicidal ideations; K21.9 Gastro-esophageal reflux disease without esophagitis
CPT/HCPCS: 36415; 70450; 71046; 80053; 80307; 80320; 80329; 81003; 82550; 84443; 84484; 85025; 86618; 93005; 99283; G0480

== ENCOUNTER 2023-06-21 08:38 | Observation (INO) ==
[~2023-06-21 08:38] MED LIST: Buffered Lidocaine 1% SYRIN 1 ml INTRADERM ONE; Famotidine IV 10 MG/ML 2 ml VIAL (20 mg) IV ONE; Lactated Ringers 1000 ml BAG 1,000 ML IV SCH; Lidocaine 2% PF 5 ML VIAL ONE; Midazolam 2 mg/2 ml VIAL 1 mg/ml 2 ml VIAL (2 mg) ONE; Propofol 10 MG/ML 20 ML BTL ONE; fentaNYL 100 mcg/2 ml 50 MCG/ML VIAL ONE
[2023-06-21] MEDS ORDERED: ceFAZolin 2 GM in NS PREMIX 0 GM/0 ML BAG IVPB ONE (08:51)
[2023-06-21] MEDS ORDERED: Famotidine IV 10 MG/ML 2 ml VIAL (20 mg) ONE (08:51)
[2023-06-21] MEDS ORDERED: Tranexamic Acid 1 GM/100ML BAG 2,000 MG/200 ML BAG IV ONE (08:51)
[2023-06-21 09:16] LABS: Rapid COVID-19 Molecular Undetected (Undetected)
[2023-06-21] MEDS ORDERED: Clindamycin 900 MG/50 **NS BAG 900 MG/50 ML BAG ONE (09:42)
[2023-06-21] MEDS ORDERED: ROPIVACAINE 5 MG/ML 30 ML BTL (0.5%) ONE (10:41)
[2023-06-21] MEDS ORDERED: ceFAZolin VIAL VIAL ONE (11:17)
[2023-06-21] MEDS ORDERED: Dexamethasone IV 4 MG/ML VIAL 1 ml VIAL ONE (11:20)
[2023-06-21] MEDS ORDERED: Ondansetron 4 mg VIAL 2 MG/ML 2 ml VIAL ONE (11:20)
[2023-06-21] MEDS ORDERED: Phenylephrine IV 10 MG/ML 1 ml VIAL ONE (12:22)
[2023-06-21] MEDS ORDERED: Propofol 10 MG/ML 20 ML BTL ONE (12:53)
[2023-06-21] MEDS ORDERED: Naloxone 0.4 mg VIAL 0.4 mg/ml 1 ml VIAL IV PRN (13:33)
[2023-06-21] MEDS ORDERED: fentaNYL 100 mcg/2 ml 50 MCG/ML VIAL IV PRN (13:33)
[2023-06-21] MEDS ORDERED: HYDROmorphone 1 MG/1 ML SYRINGE IV PRN (13:33)
[2023-06-21] MEDS ORDERED: Magnesium Hydroxide LIQ 30 ML UDC PO PRN (14:12)
[2023-06-21] MEDS ORDERED: Morphine 2 MG/ML SYRINGE IV PRN (14:12)
[2023-06-21] MEDS ORDERED: Lactulose 30 ml UDC PO PRN (14:12)
[2023-06-21] MEDS ORDERED: Scopolamine 1 mg/72hr PATCH TRANSDERM PRN (14:18)
[2023-06-21] MEDS ORDERED: fentaNYL 100 mcg/2 ml 50 MCG/ML VIAL ONE (14:28)
[2023-06-21] MEDS: Lactated Ringers 1000 ml BAG 1,000 ML IV SCH (16:54)
[2023-06-21] MEDS: ceFAZolin 1 GM ADVAN 1 GM in NS 0.9% 50 ML 50 ML IVPB SCH (20:33)
[2023-06-21] MEDS: Magnesium Hydroxide LIQ 30 ML UDC PO SCH (21:05)
[2023-06-22 00:57] LABS: HIV 4th Generation Nonreactive (Nonreactive)
[2023-06-22 01:35] LABS: Hepatitis B Surface Antigen Nonreactive (Nonreactive)
[2023-06-22 01:52] LABS: Hepatitis B Surface Ab Not Immune (Immune); Hepatitis C Antibody Negative (Negative)
[2023-06-22] MEDS: Lactated Ringers 1000 ml BAG 1,000 ML IV SCH (03:30)
[2023-06-22] MEDS: ceFAZolin 1 GM ADVAN 1 GM in NS 0.9% 50 ML 50 ML IVPB SCH ×2 (03:33→10:33)
[2023-06-22 06:45] LABS: Hematocrit 31.2 % (35-45); Hemoglobin 10.6 g/dL (11.5-14.3); Platelet Count 169 10^3/uL (150-450)
[2023-06-22 06:59] LABS: Calcium 8.8 mg/dL (8.6-10.3); Creatinine, Serum 0.73 mg/dL (0.51-0.95); Potassium 4.3 mmol/L (3.5-5.0); eGFR CKD-EPI 86.8 (>60)
[2023-06-22] MEDS: Magnesium Hydroxide LIQ 30 ML UDC PO SCH (07:28)
[2023-06-22] MEDS ORDERED: Vitamin THERAPEUTIC TAB PO SCH (09:00)
[2023-06-22 10:25] VITALS: BP 121/69
== END 2023-06-22 12:49 | disposition home or self-care (01) ==
LOC: SSU 08:38 → OR 08:38
PROVIDERS: ADMIT Orthopaedic Surgery Adult Reconstructive Orthopaedic Surgery; ATTEND Orthopaedic Surgery Adult Reconstructive Orthopaedic Surgery